=== PATIENT | female | born 1940 | race Caucasian/White ===

== ENCOUNTER 2020-09-09 19:52 | IRF | payer MEDICARE, MEDICAID, SELFPAY ==
--- NOTE | ~2020-09-09 | CT_ITS ---
EXAMINATION: CT brain wo con EXAM DATE: 09/20/2020 14:53 INDICATION: altered energy level, increase anxiety. TECHNIQUE: Spiral CT of the head was performed without contrast. Axial, coronal and sagittal images were reviewed. The dose-length product (DLP) for this examination was 681.00 mGy-cm. The exposure w as tailored according to patient size, and iterative reconstruction (ASIR) was used as additional dos e reduction technique. There is no prior study for comparison. FINDINGS: There is no acute intraparenchymal hemorrhage. No evidence of intraparenchymal brain mass lesion. No evidence of acute infarction. Please note that initial head CT has limited sensitivity f or small or acute infarctions. There is moderate periventricular and subcortical hypodensity, nonspec ific but probably related to small vessel ischemic disease. There is mild prominence of the sulci a nd ventricles related to cerebral atrophy. There is intracranial carotid arteriosclerosis. There a re no extra-axial collections. There is no mass effect or midline shift. Patient has had bilateral ocular lens surgery. Soft tissue is unremarkable. The visualized sinuses and mastoid air cells are well aerated. IMPRESSION: 1. No acute intracranial findings. 2. Chronic age related findings. Reviewed, dictated and finalized at location A. ING MACHINE OPERATOR
--- NOTE | 2020-09-09 20:55 | ADMGEN ---
This patient, Linda Palmer, was admitted to [facility] Room 221-02 at 1952. Patient/family oriented to hospital policies and general routines including ID bracelet, bed and alarms, visiting hours, pain management, procedures, bathroom and other care routines, personal items, smoking policy, room service/diet, and visiting hours. Information on how to activate the Rapid Response Team has been discussed. Patient/Family are encouraged to report perceived risks to care and to ask questions if they do not understand what they are told or what they should do.
[2020-09-09 21:29] VITALS: BMI 33.6
[2020-09-09 22:00] VITALS: BP 149/63; PULSE 70; RESP 20; TEMP 36.1; O2SAT 96
[2020-09-09] MEDS: rOPINIRole HCL 1 MG TABLET 5 MG PO (23:31)
[2020-09-09] MEDS: METOPROLOL TARTRATE 12.5 MG TABLET PO (23:31)
[2020-09-09] MEDS: hydrALAZINE HCL 50 MG TABLET PO (23:31)
[2020-09-10] MEDS: ALPRAZolam (*CRX) 0.25 MG TABLET PO ×2 (04:25→19:50)
[2020-09-10] MEDS: LEVOTHYROXINE SODIUM 100 MCG TABLET PO (05:32)
[2020-09-10 05:33] LABS: Anion Gap 9 mmol/L (8-16); Blood Urea Nitrogen 32 mg/dL (7-17); Calcium 8.8 mg/dL (8.4-10.2); Carbon Dioxide 26 mmol/L (22-30); Chloride 103 mmol/L (98-107); Cholesterol 197 mg/dL (0-200); Estimated CRCL calculation 43 ml/min; Estimated Glomerular Filt Rate 48; Glucose 134 mg/dL (65-105); HDL Direct 28 mg/dL; Potassium 4.3 mmol/L (3.4-5.0); Sodium 138 mmol/L (137-145); Triglycerides 222 mg/dL (<150)
[2020-09-10 05:44] LABS: LDL Cholesterol Direct 132 mg/dL
[2020-09-10 06:00] VITALS: BP 124/75; PULSE 73; RESP 20; TEMP 36.1; O2SAT 95
[2020-09-10 07:39] LABS: Basophils Absolute Auto 0.1 K/mm3 (0.0-0.1); Basophils Percent Auto 0.7 % (0.2-1.2); Eosinophils Absolute Auto 0.6 K/mm3 (0-0.3); Eosinophils Percent Auto 7.6 % (0-4.4); Hematocrit 36.9 % (37.0-47.0); Hemoglobin 11.9 g/dL (12.0-15.0); Immature Granulocyte Absolute 0.05 K/mm3 (0.00-0.031); Immature Granulocyte Percent A 0.7 % (0-0.5); Immature Platelet Fraction Pct 3.9 % (0.9-11.2); Lymphocytes Absolute Auto 1.54 K/mm3 (0.9-3.2); Lymphocytes Percent Auto 20.5 % (18.3-44.2); Mean Corpuscular HGB Conc 32.2 g/dl (32-36); Mean Corpuscular Hemoglobin 30.8 pg (26-34); Mean Corpuscular Volume 95.6 fl (80-100); Mean Platelet Volume 10.7 fl (7.4-10.4); Monocytes Absolute Auto 0.6 K/mm3 (0.1-0.6); Monocytes Percent Auto 7.5 % (2.6-8.5); Neutrophils Absolute Auto 4.7 K/mm3 (1.3-6.7); Platelet Count Result 200 k/mm3 (150-375); Red Blood Count 3.86 M/mm3 (4.2-5.4); Red Cell Distribution Width 12.9 % (11.5-14.5); White Blood Count 7.5 K/mm3 (4.5-10.0)
[2020-09-10 07:50] LABS: Large Platelets Present; Platelet Estimate Adequate (Adequate)
[2020-09-10] MEDS: hydrALAZINE HCL 50 MG TABLET PO ×2 (09:18→19:47)
[2020-09-10] MEDS: FUROSEMIDE 40 MG TABLET PO (09:18)
[2020-09-10] MEDS: ASPIRIN 81 MG ENTERIC TABLET PO (09:18)
[2020-09-10 09:22] VITALS: PULSE 73
[2020-09-10] MEDS: METOPROLOL TARTRATE 12.5 MG TABLET PO ×2 (09:22→19:47)
[2020-09-10] MEDS: traMADol HCL (*CRX) 50 MG TABLET PO (10:36)
--- NOTE | 2020-09-10 12:25 | WPDREHABHP ---
H&P: HPI History of Present Illness Date/Time: 09/10/20 12:25 Chief complaint: CVA Narrative: Linda Palmer is a 80 year old female The patient's primary rehab impairment category is [] stroke The etiologic diagnosis is [] acute to subacute infarcts in the left frontal parietal occipital lobes and basal ganglia I saw this patient [id number] on [] September 10, 2020 at 12 noon The patient is a [] 80 years old female with a past medical history of chronic anemia, hypertension, hypothyroidism, multiple sclerosis, and a CVA with transferred to [facility] from [facility] for further workup of a possible stroke. The patient reports that she was in her normal state of health the night before, however when she awoke at 6:00 a.m., she was unable to get out of bed due to new weakness of her right side. The patient was transferred to the emergency department. NIH stroke score was 9. A head CT scan did not show any acute process. Head CTA showed stenosis of the M1 segment of the left middle cerebral artery. The patient did not receive tPA as she was outside the window for treatment. Neurology was consulted the patient was started on aspirin 81 mg daily and Plavix 75 mg daily. The patient is intolerant of statins. LDL is 80. A1c 6.0. Patient to maintain permissive hypertension for 24 hours, with plan to slowly resume hypertensive medication. MRI of the brain revealed multiple border zone acute to subacute infarcts in the left frontal parietal, occipital lobes and basal ganglia suggestive of small vessel disease. TTE identified no embolic source. The carotid Doppler showed moderate stenosis on the left ICA. A CTA was performed on September 08, 2020 and showed areas of hypoattenuation in the left cerebral cortex and left centrum semi ovale consistent with evolving infarction seen on prior MRI examination, with no hemorrhagic conversion identified or significant mass effect, luminal irregularity and moderate narrowing of the proximal left internal carotid artery immediately distal to the bifurcation with up to 60% focal stenosis and mild irregularity and mild narrowing of the proximal left middle cerebral artery was noted. These findings are likely related to atherosclerosis given mild atherosclerosis present at the right carotid bifurcation and in the common carotid arteries as well as at the aortic arch and proximal left subclavian artery. No large vessel vascular occlusion or aneurysm identified. Patient also found with swallowing deficits and she was placed on a mechanical soft diet with thin liquids for dysphagia. S LP completed a repeat swallowing and the patient was advanced to regular diet with thin liquids. The patient experiencing physical deficits of right-sided facial droop, his speech disturbance, right hemiparesis, mild anomic aphasia and mild cognitive defects. She is awake alert oriented x3 she will discharged to the on aspirin 81 mg routine and Lovenox 40 mg with plan to reassess at followup with surgeon after rehab. the patient has not traveled outside the [place] or head contact with someone who is ill that his travel outside the [place] in the past 21 days. The patient has not traveled to an area of the [place] that he is experiencing known transmission of the Coronavirus and has not had close personal contact with anyone that has. The patient does not have a fever the patient is not experiencing lower respiratory illness symptoms. Therapy was initiated at the acute care facility and the patient transferred to us from [[facility] on [] FALLS OR SURGERIES: The patient has had no major surgery in the last 100 days. The patient has had 2 to 3 falls in the past year. The patient has had no falls with injury in the past year. PAST MEDICAL HISTORY: Chronic anemia, hypertension, hypothyroidism, multiple sclerosis diagnosed in 1989 and also last follow-up with [facility] in 2017, CVA
[2020-09-10 12:31] VITALS: BMI 33.6
[2020-09-10] MEDS: LOSARTAN POTASSIUM 50 MG TABLET PO (12:33)
[2020-09-10 14:00] VITALS: BP 149/55; PULSE 64; RESP 18; TEMP 36.4; O2SAT 96
--- NOTE | 2020-09-10 16:30 | RPD ---
INDIVIDUALIZED PLAN OF CARE FOR Linda Palmer Brief Synthesis of Pre-Admission Screen, Post-Admission Evaluation and Therapy Evaluations: The patient presents to rehab with acute to subacute infarcts in the left frontal parietal, occipital lobes, and basal ganglia. Comorbidities include Chronic anemia, hypertension, hypothyroidism, multiple sclerosis, history of CVA x2 in 2018, COPD, CAD, GERD, neuropathy, restless leg syndrome, right-side ptosis, right-sided facial droop, speech disturbance, righthemiparesis, insomnia, and mild oral/pharyngeal dysphagia, obesity, anxiety, mild anomic aphasia. . The patient needs physician monitoring and treatment of hypertenison/hypotension, anemia, respiratory deficits, monitoring for adverse reactions to new medications, monitoring for infection, and pain control. The patient requires nursing services for frequent neuro checks, anticoagulation therapy, medication management and education, pressure relief and skin care management, monitoring of labs, bowel and bladder training, and fall/safety precautions. Deficits include:ADLs, Balance, Cognition, Endurance, Family Training/Education, Mobility, Pain Management, ROM, Safety, Speech, Strength, Swallowing, Transfers Journeyman Pipe Welder/Case Management for: Discharge Planning and Patient/Family Counseling Physical Therapy: 5 days per week for 90 minutes. Treatments may include: Therapeutic Exercise, Gait Training, Neuromuscular Re-education, Transfer Training, Community Reintegration, Bed Mobility, Patient/Family Education, Wheelchair Mobility Group Therapy/Concurrent Therapy Rationales: -Improve attention span during functional activities in a distracted environment. -Enhance problem solving and/or adequate judgment skills during functional activities in a distracted environment. -Promote increased safety awareness in a distracted environment to reduce fall risk with functional tasks, transfers, and ambulation to allow a more safe, self-sufficient return to the home environment. -Improve dynamic balance skills to promote safety and independence with functional activities in a distracted environment for maximum gain. Occupational Therapy: 5 days per week for 90 minutes. Treatments may include: Therapeutic Exercise, Therapeutic Activity, Cognitive Training, Self-Care Transfer Training, Community Reintegration, Home Management, Patient/Family Education, Wheelchair Mobility Training, Energy Conservation Training Group Therapy/Concurrent Therapy Rationales: -Allow therapist to observe and teach generalization and carry-over of skills learned in individual therapy. -Enhance problem solving and sequencing skills during therapeutic activities in a distracted environment. -Promote increased safety awareness in a realistic setting to reduce fall risk with functional tasks due to visual and verbal distractions. -Increase functional level with ADLs, ADL transfers and use of adaptive equipment through therapeutic activities with others while promoting safety to allow a more safe, self-sufficient return home. Medical Prognosis: Good Anticipated Length of Stay: 12 days Rehab Goals: Eating Goal: 06-Independent Oral Hygiene Goal: 06-Independent Toileting Hygiene Goal: 04-Supervision or Touching Assistance Shower/Bathe Self Goal: 05-Setup or Clean Up Assistance Upper Body Dressing Goal: 05-Setup or Clean Up Assistance Lower Body Dressing Goal: 05-Setup or Clean Up Assistance Putting On/Taking Off Footwear Goal: 05-Setup or Clean Up Assistance Rolling Left and Right Goal: 06-Independent Sit to Lying Goal: 06-Independent Lying to Sitting on Side of Bed Goal: 06-Independent Sit to Stand Goal: 04-Supervision or Touching Assistance Chair/Zzf-xv-Gvoma Transfer Goal: 04-Supervision or Touching Assistance Toilet Transfer Goal: 04-Supervision or Touching Assistance Car Transfer Goal: 04-Supervision or Touching Assistance Walk 10' Goal: 04-Supervision or Touching Assistance Walk 50' with Two T
[2020-09-10] MEDS: rOPINIRole HCL 1 MG TABLET 5 MG PO (19:47)
[2020-09-10 21:02] VITALS: BP 148/47; PULSE 82; RESP 18; TEMP 36.5; O2SAT 95
[2020-09-11] MEDS: traMADol HCL (*CRX) 50 MG TABLET PO (02:37)
[2020-09-11 05:11] VITALS: BP 157/60; PULSE 68; RESP 20; TEMP 36.4; O2SAT 93
[2020-09-11] MEDS: LEVOTHYROXINE SODIUM 100 MCG TABLET PO (05:52)
[2020-09-11 08:35] VITALS: PULSE 68
[2020-09-11] MEDS: LOSARTAN POTASSIUM 50 MG TABLET PO (08:35)
[2020-09-11] MEDS: FUROSEMIDE 40 MG TABLET PO (08:35)
[2020-09-11] MEDS: hydrALAZINE HCL 50 MG TABLET PO ×2 (08:35→20:42)
[2020-09-11] MEDS: METOPROLOL TARTRATE 12.5 MG TABLET PO ×2 (08:35→20:42)
[2020-09-11] MEDS: ASPIRIN 81 MG ENTERIC TABLET PO (08:35)
[2020-09-11] MEDS: ALPRAZolam (*CRX) 0.25 MG TABLET PO ×2 (08:39→20:41)
--- NOTE | 2020-09-11 12:40 | WPDNEURORHBP ---
Subjective Date/time seen: 09/11/20 12:40 80 years old lady admitted to the rehab floor with stroke involving the left frontal parietal and occipital lobes along with the basal ganglia in addition to the documented stenosis of M1 segment of left middle cerebral artery and also history of no tPA unfortunately has multiple comorbid conditions particularly hypertension ongoing demyelinating disease COPD coronary artery disease blurred also concerned about the cardiac monitoring which was discussed by her other physician prior to coming to the rehab Review of Systems Review of Systems: All systems reviewed & are unremarkable except as noted in HPI and below Functional Status Ambulation Ability Ability to Ambulate 10 Feet: Minimum Assistance X 1 Ambulation Assistive Devices: Walker, Wheeled Exam Narrative: Exam Narrative: on examination she is awake alert definitely feeling better his speech is not dysphasic not dysarthric not dysphonic more cooperative and understanding ear nose throat examination is normal neck is supple with no restriction of the motions no cervical bruit heart regular lungs clear abdomen soft flabby be neuro unchanged Objective Data Vital Signs Vital Signs: Vital Signs - 24 hr 09/10/20 14:00 09/10/20 21:02 09/11/20 05:11 Temperature 36.4 C 36.5 C 36.4 C L Pulse Rate 64 82 68 Respiratory Rate 18 18 20 Blood Pressure 149/55 H 148/47 H 157/60 H Pulse Oximetry 96 95 93 09/11/20 08:35 Temperature Pulse Rate 68 Respiratory Rate Blood Pressure Pulse Oximetry Intake/Output Intake/Output: Intake & Output 09/08/20 09/09/20 09/10/20 09/11/20 23:59 23:59 23:59 23:59 Intake Total 1080 360 Balance 1080 360 Meds/Results Medications: Active Medications Generic Name Dose Route Start Last Admin Trade Name Freq PRN Reason Stop Dose Admin Alprazolam 0.25 mg 09/10/20 03:11 09/11/20 08:39 Alprazolam (*Crx) 0.25 Mg Tablet PO 0.25 mg BID PRN Administration Anxiety Aspirin 81 mg 09/10/20 09:00 09/11/20 08:35 Aspirin 81 Mg Enteric Tablet PO 81 mg DAILY CIARA Administration Furosemide 40 mg 09/10/20 09:00 09/11/20 08:35 Furosemide 40 Mg Tablet PO 40 mg DAILY CIARA Administration Hydralazine HCl 50 mg 09/09/20 21:00 09/11/20 08:35 Hydralazine Hcl 50 Mg Tablet PO 50 mg Q12HR CIARA Administration Levothyroxine Sodium 100 mcg 09/10/20 06:30 09/11/20 05:52 Levothyroxine Sodium 100 Mcg Tablet PO 100 mcg DAILY@0630 CIARA Administration Losartan Potassium 50 mg 09/10/20 09:00 09/11/20 08:35 Losartan Potassium 50 Mg Tablet PO 50 mg DAILY CIARA Administration Metoprolol Tartrate 12.5 mg 09/09/20 21:40 09/11/20 08:35 Metoprolol Tartrate 12.5 Mg Tablet PO 12.5 mg Q12HR CIARA Administration Ropinirole HCl 5 mg 09/09/20 21:45 09/10/20 19:47 Ropinirole Hcl 1 Mg Tablet PO 5 mg HS CIARA Administration Tramadol HCl 50 mg 09/10/20 09:31 09/11/20 02:37 Tramadol Hcl (*Crx) 50 Mg Tablet PO 50 mg Q8H PRN Administration Pain Rated 4-6 Progress Note: A&P Assessment and Plan (1) GERD (gastroesophageal reflux disease): Code(s): K21.9 - Gastro-esophageal reflux disease without esophagitis Status: Acute (2) COPD (chronic obstructive pulmonary disease): Code(s): J44.9 - Chronic obstructive pulmonary disease, unspecified Status: Acute (3) Restless leg syndrome: Code(s): G25.81 - Restless legs syndrome Status: Acute (4) Neuropathy: Code(s): G62.9 - Polyneuropathy, unspecified Status: Acute (5) Multiple sclerosis: Code(s): G35 - Multiple sclerosis Status: Acute (6) Hypothyroidism: Code(s): E03.9 - Hypothyroidism, unspecified Status: Acute (7) Hypertension: Code(s): I10 - Essential (primary) hypertension Status: Acute (8) MS (multiple sclerosis): Code(s): G35 - Multiple sclerosis Status: Acute (9) Stroke:
[2020-09-11 14:00] VITALS: BP 152/67; PULSE 78; RESP 18; TEMP 36.6; O2SAT 96
[2020-09-11] MEDS: rOPINIRole HCL 1 MG TABLET 5 MG PO (20:41)
[2020-09-11] MEDS: SENNA/DOCUSATE SODIUM TABLET 2 TAB PO (20:41)
[2020-09-11 22:00] VITALS: BP 147/74; PULSE 71; RESP 20; TEMP 36.4; O2SAT 99
[2020-09-12] MEDS: traMADol HCL (*CRX) 50 MG TABLET PO ×2 (01:30→21:59)
[2020-09-12] MEDS: LEVOTHYROXINE SODIUM 100 MCG TABLET PO (05:58)
[2020-09-12 06:00] VITALS: BP 122/63; PULSE 68; RESP 20; TEMP 36.5; O2SAT 94
[2020-09-12 08:21] VITALS: PULSE 68
[2020-09-12] MEDS: hydrALAZINE HCL 50 MG TABLET PO ×2 (08:21→20:02)
[2020-09-12] MEDS: LOSARTAN POTASSIUM 50 MG TABLET PO (08:21)
[2020-09-12] MEDS: FUROSEMIDE 40 MG TABLET PO (08:21)
[2020-09-12] MEDS: METOPROLOL TARTRATE 12.5 MG TABLET PO ×2 (08:21→20:01)
[2020-09-12] MEDS: ASPIRIN 81 MG ENTERIC TABLET PO (08:21)
[2020-09-12] MEDS: ALPRAZolam (*CRX) 0.25 MG TABLET PO ×2 (08:21→21:59)
[2020-09-12 14:00] VITALS: BP 130/54; PULSE 78; RESP 20; TEMP 36.9; O2SAT 94
[2020-09-12 20:00] VITALS: PULSE 70; RESP 20; O2SAT 96
[2020-09-12] MEDS: rOPINIRole HCL 1 MG TABLET 5 MG PO (20:00)
[2020-09-12 20:01] VITALS: PULSE 70
[2020-09-12] MEDS: SENNA/DOCUSATE SODIUM TABLET 2 TAB PO (20:02)
[2020-09-12 21:36] VITALS: BP 151/63; PULSE 70; RESP 20; TEMP 36.6; O2SAT 96
[2020-09-13] MEDS: LEVOTHYROXINE SODIUM 100 MCG TABLET PO (05:53)
[2020-09-13 06:00] VITALS: BP 166/61; PULSE 75; RESP 20; TEMP 36.2; O2SAT 95
[2020-09-13 07:55] VITALS: PULSE 72
[2020-09-13] MEDS: hydrALAZINE HCL 50 MG TABLET PO ×2 (07:55→20:11)
[2020-09-13] MEDS: LOSARTAN POTASSIUM 50 MG TABLET PO (07:55)
[2020-09-13] MEDS: polyethylene glycoL 3350 17 GM POWD.PACK PO (07:55)
[2020-09-13] MEDS: ASPIRIN 81 MG ENTERIC TABLET PO (07:55)
[2020-09-13] MEDS: METOPROLOL TARTRATE 12.5 MG TABLET PO ×2 (07:55→20:11)
[2020-09-13] MEDS: FUROSEMIDE 40 MG TABLET PO (07:55)
[2020-09-13] MEDS: ALPRAZolam (*CRX) 0.25 MG TABLET PO ×2 (08:30→20:19)
--- NOTE | 2020-09-13 10:57 | WPDNEUROPN ---
Progress Note: A&P Assessment and Plan (1) GERD (gastroesophageal reflux disease): Code(s): K21.9 - Gastro-esophageal reflux disease without esophagitis Status: Acute (2) COPD (chronic obstructive pulmonary disease): Code(s): J44.9 - Chronic obstructive pulmonary disease, unspecified Status: Acute (3) Restless leg syndrome: Code(s): G25.81 - Restless legs syndrome Status: Acute (4) Neuropathy: Code(s): G62.9 - Polyneuropathy, unspecified Status: Acute (5) Multiple sclerosis: Code(s): G35 - Multiple sclerosis Status: Acute (6) Hypothyroidism: Code(s): E03.9 - Hypothyroidism, unspecified Status: Acute (7) Hypertension: Code(s): I10 - Essential (primary) hypertension Status: Acute (8) MS (multiple sclerosis): Code(s): G35 - Multiple sclerosis Status: Acute (9) Stroke: Code(s): I63.9 - Cerebral infarction, unspecified Status: Acute Additional Plan stable Review of Systems Review of Systems: All systems reviewed & are unremarkable except as noted in HPI and below Exam Narrative: Exam Narrative: on examination she is awake alert cooperative in no obvious acute distress his speech nor dysphasic no dysarthria not dysphonic heart regular lungs clear abdomen is soft neuro unchanged Objective Data Vital Signs Vital Signs: Vital Signs - 24 hr 09/12/20 14:00 09/12/20 20:00 09/12/20 20:01 Temperature 36.9 C Pulse Rate 78 70 70 Respiratory Rate 20 20 Blood Pressure 130/54 L Pulse Oximetry 94 96 09/12/20 21:36 09/13/20 06:00 09/13/20 07:55 Temperature 36.6 C 36.2 C L Pulse Rate 70 75 72 Respiratory Rate 20 20 Blood Pressure 151/63 H 166/61 H Pulse Oximetry 96 95 Intake/Output Intake/Output: Intake & Output 09/10/20 09/11/20 09/12/20 09/13/20 23:59 23:59 23:59 23:59 Intake Total 1080 840 960 240 Balance 1080 840 960 240 Meds/Results Medications: Active Medications Generic Name Dose Route Start Last Admin Trade Name Freq PRN Reason Stop Dose Admin Alprazolam 0.25 mg 09/10/20 03:11 09/13/20 08:30 Alprazolam (*Crx) 0.25 Mg Tablet PO 0.25 mg BID PRN Administration Anxiety Aspirin 81 mg 09/10/20 09:00 09/13/20 07:55 Aspirin 81 Mg Enteric Tablet PO 81 mg DAILY CIARA Administration Furosemide 40 mg 09/10/20 09:00 09/13/20 07:55 Furosemide 40 Mg Tablet PO 40 mg DAILY CIARA Administration Hydralazine HCl 50 mg 09/09/20 21:00 09/13/20 07:55 Hydralazine Hcl 50 Mg Tablet PO 50 mg Q12HR CIARA Administration Levothyroxine Sodium 100 mcg 09/10/20 06:30 09/13/20 05:53 Levothyroxine Sodium 100 Mcg Tablet PO 100 mcg DAILY@0630 CIARA Administration Losartan Potassium 50 mg 09/10/20 09:00 09/13/20 07:55 Losartan Potassium 50 Mg Tablet PO 50 mg DAILY CIARA Administration Metoprolol Tartrate 12.5 mg 09/09/20 21:40 09/13/20 07:55 Metoprolol Tartrate 12.5 Mg Tablet PO 12.5 mg Q12HR CIARA Administration Polyethylene Glycol 17 gm 09/13/20 09:00 09/13/20 07:55 Polyethylene Glycol 3350 17 Gm Powd.Pack PO 17 gm QAM CIARA Administration Ropinirole HCl 5 mg 09/09/20 21:45 09/12/20 20:00 Ropinirole Hcl 1 Mg Tablet PO 5 mg HS CIARA Administration Senna/Docusate Sodium 2 tab 09/11/20 21:00 09/12/20 20:02 Senna/Docusate Sodium Tablet PO 2 tab HS CIARA Administration Tramadol HCl 50 mg 09/10/20 09:31 09/12/20 21:59 Tramadol Hcl (*Crx) 50 Mg Tablet PO 50 mg Q8H PRN Administration Pain Rated 4-6
[2020-09-13 14:00] VITALS: BP 121/78; PULSE 70; RESP 20; TEMP 36.2; O2SAT 94
--- NOTE | 2020-09-13 15:18 | PCPTNOTE ---
Linda Palmer was evaluated for a wheeled walker on 09/13/2020 by this physical therapist physiotherapy assistant. The wheeled walker will resolve patient's mobility limitations and will be used for ADL's within the home. The patient can safely use the wheeled walker. ?The wheeled walker will resolve the patient?s mobility deficits, including decreased endurance, decreased strength and impaired balance.
[2020-09-13 20:08] VITALS: BP 158/63; PULSE 72; RESP 18; TEMP 36.3; O2SAT 95
[2020-09-13] MEDS: rOPINIRole HCL 1 MG TABLET 5 MG PO (20:10)
[2020-09-13 20:11] VITALS: PULSE 74
[2020-09-13] MEDS: SENNA/DOCUSATE SODIUM TABLET 2 TAB PO (20:11)
[2020-09-13] MEDS: traMADol HCL (*CRX) 50 MG TABLET PO (20:19)
[2020-09-13 21:00] VITALS: PULSE 74; RESP 18; O2SAT 95
[2020-09-14 05:23] VITALS: BP 137/55; PULSE 70; RESP 18; TEMP 36.6; O2SAT 97
[2020-09-14] MEDS: LEVOTHYROXINE SODIUM 100 MCG TABLET PO (05:27)
[2020-09-14 08:14] VITALS: PULSE 74
[2020-09-14] MEDS: ALPRAZolam (*CRX) 0.25 MG TABLET PO ×2 (08:14→22:06)
[2020-09-14] MEDS: METOPROLOL TARTRATE 12.5 MG TABLET PO ×2 (08:14→19:55)
[2020-09-14] MEDS: ASPIRIN 81 MG ENTERIC TABLET PO (08:14)
[2020-09-14] MEDS: BISACODYL 5 MG TABLET EC 10 MG PO ×2 (08:15→20:02)
[2020-09-14] MEDS: LOSARTAN POTASSIUM 50 MG TABLET PO (08:15)
[2020-09-14] MEDS: FUROSEMIDE 40 MG TABLET PO (08:15)
[2020-09-14] MEDS: hydrALAZINE HCL 50 MG TABLET PO ×2 (08:15→19:55)
[2020-09-14] MEDS: polyethylene glycoL 3350 17 GM POWD.PACK PO (08:15)
--- NOTE | 2020-09-14 11:04 | PCNFU ---
Nutrition Follow-Up Complete: Obesity related to excessive energy intake prior to admission as evidenced by BMI of 33.7. Goal: Patient to consume 75% of meals or greater. Progressing towards goal. We will continue current goal. Pt current nutrition is Heart Healthy. Nutrition recommendation:Agree Last recorded weight is 100.4 kg. Bowel Motility:+BM reported 09/09-constipation is noted. Labs Reviewed:no new labs to report. Meds Noted:Miralax,Lopressor,Lasix,Synthroid,Xanax Additional Notes: Nutrition follow up today. Patient is consuming 50-75% of a heart healthy diet. No diet concerns at this time. Monitoring: Follow up every 5 days.
[2020-09-14 14:00] VITALS: BP 141/43; PULSE 72; RESP 20; TEMP 36.4; O2SAT 96
--- NOTE | 2020-09-14 14:42 | PC.NURSE ---
Call returned from Dennise Lr at [facility] regarding patient and questions about documentation from their hospital stating patient was to be started on plavix there as well as questions regarding the patient needing a holter monitor.Dennise stated she had the charge nurse look up information and patient was not discharged to our unit with Plavix and patient did not discharge from there on plavix. md updated and will continue to monitor.
[2020-09-14] MEDS: SENNA/DOCUSATE SODIUM TABLET 2 TAB PO (19:54)
[2020-09-14 19:55] VITALS: PULSE 80
[2020-09-14] MEDS: rOPINIRole HCL 1 MG TABLET 5 MG PO (19:56)
[2020-09-14] MEDS: traMADol HCL (*CRX) 50 MG TABLET PO (20:03)
[2020-09-14 20:28] VITALS: BP 138/50; PULSE 84; RESP 18; TEMP 36.4; O2SAT 98
[2020-09-15 05:20] VITALS: BP 145/49; PULSE 73; RESP 18; TEMP 36.3; O2SAT 96
[2020-09-15] MEDS: LEVOTHYROXINE SODIUM 100 MCG TABLET PO (05:25)
[2020-09-15 09:04] VITALS: PULSE 73
[2020-09-15] MEDS: ASPIRIN 81 MG ENTERIC TABLET PO (09:04)
[2020-09-15] MEDS: LOSARTAN POTASSIUM 50 MG TABLET PO (09:04)
[2020-09-15] MEDS: METOPROLOL TARTRATE 12.5 MG TABLET PO ×2 (09:04→20:26)
[2020-09-15] MEDS: hydrALAZINE HCL 50 MG TABLET PO ×2 (09:04→20:26)
[2020-09-15] MEDS: FUROSEMIDE 40 MG TABLET PO (09:04)
[2020-09-15] MEDS: polyethylene glycoL 3350 17 GM POWD.PACK PO (09:05)
[2020-09-15 09:30] VITALS: BP 133/55; PULSE 78; RESP 97
--- NOTE | 2020-09-15 10:43 | WPDNEURORHBP ---
Subjective Date/time seen: 09/15/20 10:43 80 years old lady has been admitted to the rehab floor with the diagnosis of a stroke involving the left frontoparietal area and occipital area in addition to the basal ganglia and also documentation of this stenosis of M1 segment of left middle cerebral artery. Additional she carries the diagnosis of hypertension and demyelinating disease along with COPD coronary artery disease. Review of Systems Review of Systems: All systems reviewed & are unremarkable except as noted in HPI and below Functional Status Ambulation Ability Ability to Ambulate 10 Feet: Contact Guard Ability to Ambulate 50 Feet With 2 Turns: Contact Guard Ambulation Assistive Devices: Walker, Wheeled Transfers Ability Ability to Transfer In/Out of Chair: Contact Guard Exam Narrative: Exam Narrative: On examination she is awake alert cooperative in no obvious acute distress his speech nor dysphasic no dysarthric not dysphonic. Heart regular with no murmur. Lungs clear to auscultation with no rhonchi or crepitations. Abdomen soft flat be nontender normal bowel sounds. Neuro examination is reveals improving right-sided deficit. Objective Data Vital Signs Vital Signs: Vital Signs - 24 hr 09/14/20 14:00 09/14/20 19:55 09/14/20 20:28 Temperature 36.4 C 36.4 C L Pulse Rate 72 80 84 Respiratory Rate 20 18 Blood Pressure 141/43 H 138/50 L Pulse Oximetry 96 98 09/15/20 05:20 09/15/20 09:04 Temperature 36.3 C L Pulse Rate 73 73 Respiratory Rate 18 Blood Pressure 145/49 H Pulse Oximetry 96 Intake/Output Intake/Output: Intake & Output 09/12/20 09/13/20 09/14/20 09/15/20 23:59 23:59 23:59 23:59 Intake Total 960 840 960 240 Balance 960 840 960 240 Meds/Results Medications: Active Medications Generic Name Dose Route Start Last Admin Trade Name Freq PRN Reason Stop Dose Admin Alprazolam 0.25 mg 09/10/20 03:11 09/14/20 22:06 Alprazolam (*Crx) 0.25 Mg Tablet PO 0.25 mg BID PRN Administration Anxiety Aspirin 81 mg 09/10/20 09:00 09/15/20 09:04 Aspirin 81 Mg Enteric Tablet PO 81 mg DAILY CIARA Administration Bisacodyl 10 mg 09/13/20 17:58 09/14/20 20:02 Bisacodyl 5 Mg Tablet Ec PO 10 mg HS PRN Administration Constipation Furosemide 40 mg 09/10/20 09:00 09/15/20 09:04 Furosemide 40 Mg Tablet PO 40 mg DAILY CIARA Administration Hydralazine HCl 50 mg 09/09/20 21:00 09/15/20 09:04 Hydralazine Hcl 50 Mg Tablet PO 50 mg Q12HR CIARA Administration Levothyroxine Sodium 100 mcg 09/10/20 06:30 09/15/20 05:25 Levothyroxine Sodium 100 Mcg Tablet PO 100 mcg DAILY@0630 CIARA Administration Losartan Potassium 50 mg 09/10/20 09:00 09/15/20 09:04 Losartan Potassium 50 Mg Tablet PO 50 mg DAILY CIARA Administration Metoprolol Tartrate 12.5 mg 09/09/20 21:40 09/15/20 09:04 Metoprolol Tartrate 12.5 Mg Tablet PO 12.5 mg Q12HR CIARA Administration Polyethylene Glycol 17 gm 09/13/20 09:00 09/15/20 09:05 Polyethylene Glycol 3350 17 Gm Powd.Pack PO 17 gm QAM CIARA Administration Ropinirole HCl 5 mg 09/09/20 21:45 09/14/20 19:56 Ropinirole Hcl 1 Mg Tablet PO 5 mg HS CIARA Administration Senna/Docusate Sodium 2 tab 09/11/20 21:00 09/14/20 19:54 Senna/Docusate Sodium Tablet PO 2 tab HS CIARA Administration Tramadol HCl 50 mg 09/10/20 09:31 09/14/20 20:03 Tramadol Hcl (*Crx) 50 Mg Tablet PO 50 mg Q8H PRN Administration Pain Rated 4-6 Progress Note: A&P Assessment and Plan (1) COPD (chronic obstructive pulmonary disease): Code(s): J44.9 - Chronic obstructive pulmonary disease, unspecified Status: Acute (2) GERD (gastroesophageal reflux disease): Code(s): K21.9 - Gastro-esophageal reflux disease without esophagitis Status: Acute (3) Restless leg syndrome: Code(s): G25.81 - Restless legs syndrome Status: Acute (4) Neuropathy: Code(
[2020-09-15] MEDS: ALPRAZolam (*CRX) 0.25 MG TABLET PO ×2 (11:19→20:26)
[2020-09-15 14:00] VITALS: BP 140/47; PULSE 80; RESP 18; TEMP 37; O2SAT 97
[2020-09-15 20:26] VITALS: PULSE 80
[2020-09-15] MEDS: rOPINIRole HCL 1 MG TABLET 5 MG PO (20:26)
[2020-09-15] MEDS: SENNA/DOCUSATE SODIUM TABLET 2 TAB PO (20:26)
[2020-09-15] MEDS: BISACODYL 5 MG TABLET EC 10 MG PO (21:31)
[2020-09-15 22:00] VITALS: BP 151/61; PULSE 80; RESP 18; TEMP 36.6; O2SAT 98
[2020-09-16] MEDS: traMADol HCL (*CRX) 50 MG TABLET PO ×3 (02:41→21:59)
[2020-09-16 06:00] VITALS: BP 169/82; PULSE 75; RESP 18; TEMP 36; O2SAT 98
[2020-09-16] MEDS: LEVOTHYROXINE SODIUM 100 MCG TABLET PO (06:14)
[2020-09-16 08:49] VITALS: PULSE 76
[2020-09-16] MEDS: METOPROLOL TARTRATE 12.5 MG TABLET PO ×2 (08:49→21:56)
[2020-09-16] MEDS: LOSARTAN POTASSIUM 50 MG TABLET PO (08:49)
[2020-09-16] MEDS: FUROSEMIDE 40 MG TABLET PO (08:49)
[2020-09-16] MEDS: hydrALAZINE HCL 50 MG TABLET PO ×2 (08:49→21:56)
[2020-09-16] MEDS: CLOPIDOGREL BISULFATE 75 MG TABLET PO (08:49)
[2020-09-16] MEDS: ASPIRIN 81 MG ENTERIC TABLET PO (08:49)
[2020-09-16 08:50] VITALS: PULSE 76; RESP 18; O2SAT 98
[2020-09-16] MEDS: polyethylene glycoL 3350 17 GM POWD.PACK PO (08:50)
[2020-09-16] MEDS: ALPRAZolam (*CRX) 0.25 MG TABLET PO ×2 (09:02→23:30)
--- NOTE | 2020-09-16 11:38 | WPDNEURORHBP ---
Subjective Date/time seen: 09/16/20 11:38 80 years old admitted to the rehab floor with diagnosis of stroke in addition to the ongoing history of demyelinating disease she has been involved the physical therapy and occupational therapy has been significantly improving Review of Systems Review of Systems: All systems reviewed & are unremarkable except as noted in HPI and below Functional Status Ambulation Ability Ability to Ambulate 10 Feet: Standby Assistance Ability to Ambulate 50 Feet With 2 Turns: Standby Assistance Ambulation Assistive Devices: Walker, Wheeled Transfers Ability Ability to Transfer In/Out of Chair: Contact Guard Exam Narrative: Exam Narrative: on examination she is awake alert cooperative in no obvious acute distress speech nor dysphasic no dysarthric heart regular with no murmur lungs clear with no crepitations or rhonchi abdomen is soft nontender normal bowel sounds skin normal and neurological examination is improving Objective Data Vital Signs Vital Signs: Vital Signs - 24 hr 09/15/20 14:00 09/15/20 20:26 09/15/20 22:00 Temperature 37.0 C 36.6 C Pulse Rate 80 80 80 Respiratory Rate 18 18 Blood Pressure 140/47 L 151/61 H Pulse Oximetry 97 98 09/16/20 06:00 09/16/20 08:49 Temperature 36.0 C L Pulse Rate 75 76 Respiratory Rate 18 Blood Pressure 169/82 H Pulse Oximetry 98 Intake/Output Intake/Output: Intake & Output 09/13/20 09/14/20 09/15/20 09/16/20 23:59 23:59 23:59 23:59 Intake Total 840 960 960 480 Balance 840 960 960 480 Meds/Results Medications: Active Medications Generic Name Dose Route Start Last Admin Trade Name Freq PRN Reason Stop Dose Admin Alprazolam 0.25 mg 09/10/20 03:11 09/16/20 09:02 Alprazolam (*Crx) 0.25 Mg Tablet PO 0.25 mg BID PRN Administration Anxiety Aspirin 81 mg 09/10/20 09:00 09/16/20 08:49 Aspirin 81 Mg Enteric Tablet PO 81 mg DAILY CIARA Administration Bisacodyl 10 mg 09/13/20 17:58 09/15/20 21:31 Bisacodyl 5 Mg Tablet Ec PO 10 mg HS PRN Administration Constipation Clopidogrel Bisulfate 75 mg 09/16/20 09:00 09/16/20 08:49 Clopidogrel Bisulfate 75 Mg Tablet PO 75 mg QAM CIARA Administration Furosemide 40 mg 09/10/20 09:00 09/16/20 08:49 Furosemide 40 Mg Tablet PO 40 mg DAILY CIARA Administration Hydralazine HCl 50 mg 09/09/20 21:00 09/16/20 08:49 Hydralazine Hcl 50 Mg Tablet PO 50 mg Q12HR CIARA Administration Lactulose 30 gm 09/15/20 14:25 Lactulose 20 Gm/30 Ml Udc PO QAM PRN Constipation Levothyroxine Sodium 100 mcg 09/10/20 06:30 09/16/20 06:14 Levothyroxine Sodium 100 Mcg Tablet PO 100 mcg DAILY@0630 CIARA Administration Losartan Potassium 50 mg 09/10/20 09:00 09/16/20 08:49 Losartan Potassium 50 Mg Tablet PO 50 mg DAILY CIARA Administration Metoprolol Tartrate 12.5 mg 09/09/20 21:40 09/16/20 08:49 Metoprolol Tartrate 12.5 Mg Tablet PO 12.5 mg Q12HR CIARA Administration Polyethylene Glycol 17 gm 09/13/20 09:00 09/16/20 08:50 Polyethylene Glycol 3350 17 Gm Powd.Pack PO 17 gm QAM CIARA Administration Ropinirole HCl 5 mg 09/09/20 21:45 09/15/20 20:26 Ropinirole Hcl 1 Mg Tablet PO 5 mg HS CIARA Administration Senna/Docusate Sodium 2 tab 09/11/20 21:00 09/15/20 20:26 Senna/Docusate Sodium Tablet PO 2 tab HS CIARA Administration Tramadol HCl 50 mg 09/10/20 09:31 09/16/20 11:03 Tramadol Hcl (*Crx) 50 Mg Tablet PO 50 mg Q8H PRN Administration Pain Rated 4-6 Progress Note: A&P Assessment and Plan (1) COPD (chronic obstructive pulmonary disease): Code(s): J44.9 - Chronic obstructive pulmonary disease, unspecified Status: Acute (2) GERD (gastroesophageal reflux disease): Code(s): K21.9 - Gastro-esophageal reflux disease without esophagitis Status: Acute (3) Restless leg syndrome: Code(s): G25.81 - Restless legs syndrome Status:
[2020-09-16 14:00] VITALS: BP 145/72; PULSE 84; RESP 18; TEMP 36.5; O2SAT 96
[2020-09-16 21:42] VITALS: BP 157/59; PULSE 71; RESP 22; TEMP 36.9; O2SAT 95
[2020-09-16] MEDS: SENNA/DOCUSATE SODIUM TABLET 2 TAB PO (21:55)
[2020-09-16 21:56] VITALS: PULSE 95
[2020-09-16] MEDS: rOPINIRole HCL 1 MG TABLET 5 MG PO (21:57)
[2020-09-16] MEDS: BISACODYL 5 MG TABLET EC 10 MG PO (21:59)
[2020-09-17] VITALS (7 sets, daily range): BP systolic 142–152; BP diastolic 64–65; PULSE 74–80; RESP 20; TEMP 36.6–36.8; O2SAT 95–97
[2020-09-17] MEDS: LEVOTHYROXINE SODIUM 100 MCG TABLET PO (05:27)
[2020-09-17 05:38] LABS: Basophils Absolute Auto 0.1 K/mm3 (0.0-0.1); Eosinophils Absolute Auto 0.3 K/mm3 (0-0.3); Eosinophils Percent Auto 5.7 % (0-4.4); Hematocrit 30.8 % (37.0-47.0); Hemoglobin 9.6 g/dL (12.0-15.0); Immature Granulocyte Absolute 0.02 K/mm3 (0.00-0.031); Immature Granulocyte Percent A 0.3 % (0-0.5); Lymphocytes Absolute Auto 1.44 K/mm3 (0.9-3.2); Mean Corpuscular HGB Conc 31.2 g/dl (32-36); Mean Corpuscular Hemoglobin 30.2 pg (26-34); Mean Corpuscular Volume 96.9 fl (80-100); Mean Platelet Volume 9.6 fl (7.4-10.4); Monocytes Absolute Auto 0.5 K/mm3 (0.1-0.6); Monocytes Percent Auto 8.1 % (2.6-8.5); Neutrophils Absolute Auto 3.5 K/mm3 (1.3-6.7); Neutrophils Percent Auto 59.9 % (45.5-73.1); Platelet Count Result 269 k/mm3 (150-375); Red Blood Count 3.18 M/mm3 (4.2-5.4); Red Cell Distribution Width 12.7 % (11.5-14.5); White Blood Count 5.8 K/mm3 (4.5-10.0)
[2020-09-17 05:55] LABS: Anion Gap 4 mmol/L (8-16); Blood Urea Nitrogen 29 mg/dL (7-17); Calcium 8.9 mg/dL (8.4-10.2); Carbon Dioxide 33 mmol/L (22-30); Chloride 100 mmol/L (98-107); Estimated CRCL calculation 40 ml/min; Estimated Glomerular Filt Rate 43; Glucose 124 mg/dL (65-105); Potassium 4.1 mmol/L (3.4-5.0); Sodium 137 mmol/L (137-145)
[2020-09-17] MEDS: METOPROLOL TARTRATE 12.5 MG TABLET PO ×2 (08:34→21:05)
[2020-09-17] MEDS: FUROSEMIDE 40 MG TABLET PO (08:34)
[2020-09-17] MEDS: LOSARTAN POTASSIUM 50 MG TABLET PO (08:34)
[2020-09-17] MEDS: hydrALAZINE HCL 50 MG TABLET PO ×2 (08:34→20:35)
[2020-09-17] MEDS: ASPIRIN 81 MG ENTERIC TABLET PO (08:34)
[2020-09-17] MEDS: ALPRAZolam (*CRX) 0.25 MG TABLET PO ×2 (08:34→20:43)
[2020-09-17] MEDS: polyethylene glycoL 3350 17 GM POWD.PACK PO (08:35)
[2020-09-17] MEDS: CLOPIDOGREL BISULFATE 75 MG TABLET PO (08:40)
[2020-09-17] MEDS: rOPINIRole HCL 1 MG TABLET 5 MG PO (20:33)
[2020-09-17] MEDS: SENNA/DOCUSATE SODIUM TABLET 2 TAB PO (20:35)
[2020-09-17] MEDS: traMADol HCL (*CRX) 50 MG TABLET PO (20:41)
[2020-09-18] VITALS (7 sets, daily range): BP systolic 129–150; BP diastolic 48–66; PULSE 70–84; RESP 16–20; TEMP 36.4–37; O2SAT 95–99
[2020-09-18] MEDS: LEVOTHYROXINE SODIUM 100 MCG TABLET PO (06:40)
[2020-09-18] MEDS: polyethylene glycoL 3350 17 GM POWD.PACK PO (10:21)
[2020-09-18] MEDS: ASPIRIN 81 MG ENTERIC TABLET PO (10:21)
[2020-09-18] MEDS: LOSARTAN POTASSIUM 50 MG TABLET PO (10:21)
[2020-09-18] MEDS: CLOPIDOGREL BISULFATE 75 MG TABLET PO (10:21)
[2020-09-18] MEDS: hydrALAZINE HCL 50 MG TABLET PO ×2 (10:21→20:16)
[2020-09-18] MEDS: FUROSEMIDE 40 MG TABLET PO (10:21)
[2020-09-18] MEDS: ALPRAZolam (*CRX) 0.25 MG TABLET PO ×2 (10:22→20:16)
[2020-09-18] MEDS: METOPROLOL TARTRATE 12.5 MG TABLET PO ×2 (10:22→20:16)
--- NOTE | 2020-09-18 12:05 | WPDNEURORHBP ---
Subjective Date/time seen: 09/18/20 12:05 80 years old lady admitted to the rehab floor with a diagnosis of stroke in addition to the ongoing history of demyelinating disease. Patient is actively involved in physical therapy and occupational therapy but she is always concerned about the possibility of the surgical intervention on the left side with some difficulties in explanation by the [facility] and our explanation here she has been started on Plavix in addition to aspirin there is no evidence of any cardiac dysrhythmia she is also concerned about the possibility of having had the Holter monitoring which will be done when she gets discharged from here. Review of Systems Review of Systems: All systems reviewed & are unremarkable except as noted in HPI and below Functional Status Ambulation Ability Ability to Ambulate 10 Feet: Independent Ability to Ambulate 50 Feet With 2 Turns: Independent Ability to Ambulate 150 Feet: Standby Assistance Ambulation Assistive Devices: Walker, Wheeled Transfers Ability Ability to Transfer In/Out of Chair: Contact Guard Exam Narrative: Exam Narrative: on today's examination she is awake alert sitting at the bedside the therapist in the room I did explain to her about the possibility of different strokes. High speech is not dysphasic no dysarthric not dysphonic she is awake alert and oriented x3. Heart regular. Lungs clear with no rhonchi or crepitations. Neurological examination revealed right-sided neuro deficit as before though she is improving and abdomen is soft nontender with normal bowel sounds. Objective Data Vital Signs Vital Signs: Vital Signs - 24 hr 09/17/20 13:09 09/17/20 14:00 09/17/20 20:00 Temperature 36.7 C Pulse Rate 75 80 Respiratory Rate 20 20 Blood Pressure 142/64 H Pulse Oximetry 95 97 97 09/17/20 21:05 09/17/20 22:00 09/18/20 06:00 Temperature 36.6 C 36.8 C Pulse Rate 80 83 Respiratory Rate 16 Blood Pressure 150/66 H Pulse Oximetry 95 09/18/20 10:22 Temperature Pulse Rate 84 Respiratory Rate Blood Pressure Pulse Oximetry Intake/Output Intake/Output: Intake & Output 09/15/20 09/16/20 09/17/20 09/18/20 23:59 23:59 23:59 23:59 Intake Total 960 0331 720 480 Balance 960 1080 720 480 Meds/Results Medications: Active Medications Generic Name Dose Route Start Last Admin Trade Name Freq PRN Reason Stop Dose Admin Alprazolam 0.25 mg 09/10/20 03:11 09/18/20 10:22 Alprazolam (*Crx) 0.25 Mg Tablet PO 0.25 mg BID PRN Administration Anxiety Aspirin 81 mg 09/10/20 09:00 09/18/20 10:21 Aspirin 81 Mg Enteric Tablet PO 81 mg DAILY CIARA Administration Bisacodyl 10 mg 09/13/20 17:58 09/16/20 21:59 Bisacodyl 5 Mg Tablet Ec PO 10 mg HS PRN Administration Constipation Clopidogrel Bisulfate 75 mg 09/16/20 09:00 09/18/20 10:21 Clopidogrel Bisulfate 75 Mg Tablet PO 75 mg QAM CIARA Administration Furosemide 40 mg 09/10/20 09:00 09/18/20 10:21 Furosemide 40 Mg Tablet PO 40 mg DAILY CIARA Administration Hydralazine HCl 50 mg 09/09/20 21:00 09/18/20 10:21 Hydralazine Hcl 50 Mg Tablet PO 50 mg Q12HR CIARA Administration Lactulose 30 gm 09/15/20 14:25 Lactulose 20 Gm/30 Ml Udc PO QAM PRN Constipation Levothyroxine Sodium 100 mcg 09/10/20 06:30 09/18/20 06:40 Levothyroxine Sodium 100 Mcg Tablet PO 100 mcg DAILY@0630 CIARA Administration Losartan Potassium 50 mg 09/10/20 09:00 09/18/20 10:21 Losartan Potassium 50 Mg Tablet PO 50 mg DAILY CIARA Administration Metoprolol Tartrate 12.5 mg 09/09/20 21:40 09/18/20 10:22 Metoprolol Tartrate 12.5 Mg Tablet PO 12.5 mg Q12HR CIARA Administration Polyethylene Glycol 17 gm 09/13/20 09:00 09/18/20 10:21 Polyethylene Glycol 3350 17 Gm Powd.Pack PO 17 gm QAM CIARA Administration Ropinirole HCl 5 mg 09/09/20 21:45 09/17/20 20:33 Ropinirole Hcl 1 Mg Tablet PO 5
[2020-09-18] MEDS: traMADol HCL (*CRX) 50 MG TABLET PO (20:14)
[2020-09-18] MEDS: SENNA/DOCUSATE SODIUM TABLET 2 TAB PO (20:16)
[2020-09-18] MEDS: rOPINIRole HCL 1 MG TABLET 5 MG PO (20:17)
[2020-09-19] VITALS (8 sets, daily range): BP systolic 143–167; BP diastolic 46–90; PULSE 77–104; RESP 16–20; TEMP 36.2–36.9; O2SAT 95–98
[2020-09-19] MEDS: LEVOTHYROXINE SODIUM 100 MCG TABLET PO (05:13)
[2020-09-19] MEDS: FUROSEMIDE 40 MG TABLET PO (07:55)
[2020-09-19] MEDS: METOPROLOL TARTRATE 12.5 MG TABLET PO ×2 (07:55→20:22)
[2020-09-19] MEDS: hydrALAZINE HCL 50 MG TABLET PO ×2 (07:55→20:22)
[2020-09-19] MEDS: LOSARTAN POTASSIUM 50 MG TABLET PO (07:55)
--- NOTE | 2020-09-19 09:01 | PC.NURSE ---
epitaxis this am slowed down with pinching pressure to both nostrils, plavix and ASA held, Dr. Coyne made aware. No new orders, v/s remained stable.
[2020-09-19] MEDS: traMADol HCL (*CRX) 50 MG TABLET PO ×2 (09:20→23:01)
--- NOTE | 2020-09-19 11:51 | WPDNEURORHBP ---
Subjective Date/time seen: 09/19/20 11:51 80 years old lady has been admitted to the rehab floor with a diagnosis of a stroke in addition to ongoing history of demyelinating disease. She is actively involved in a physical therapy and occupational therapy has been taking aspirin and Plavix she has had episode of epistaxis in the past and also once today but she is reluctant to get off the Plavix and extremely scared of having stroke. I will help the aspirin and Plavix only for today and will restart tomorrow Review of Systems Review of Systems: All systems reviewed & are unremarkable except as noted in HPI and below Functional Status Ambulation Ability Ability to Ambulate 10 Feet: Independent Ability to Ambulate 50 Feet With 2 Turns: Independent Ability to Ambulate 150 Feet: Standby Assistance Ambulation Assistive Devices: Walker, Wheeled Transfers Ability Ability to Transfer In/Out of Chair: Contact Guard Exam Narrative: Exam Narrative: continues to be awake alert in no obvious distress, there is no nose bleed right now, his speech not dysphasic no dysarthric, extraocular movements are full, face symmetrical, no meningeal signs heart regular, lungs clear, abdomen is soft flap Karly, and neuro examination unchanged she is able to move the right side fairly well. Objective Data Vital Signs Vital Signs: Vital Signs - 24 hr 09/18/20 14:00 09/18/20 20:00 09/18/20 20:16 Temperature 37.0 C Pulse Rate 73 72 70 Respiratory Rate 20 20 Blood Pressure 144/53 H Pulse Oximetry 99 99 09/18/20 21:06 09/19/20 06:00 09/19/20 07:50 Temperature 36.4 C 36.2 C L 36.7 C Pulse Rate 72 78 104 H Respiratory Rate 20 20 20 Blood Pressure 129/48 L 144/52 H 167/90 H Pulse Oximetry 99 98 96 09/19/20 07:55 09/19/20 08:20 09/19/20 09:15 Temperature 36.9 C Pulse Rate 104 H 77 Respiratory Rate 16 Blood Pressure 146/59 H Pulse Oximetry 95 95 Intake/Output Intake/Output: Intake & Output 09/16/20 09/17/20 09/18/20 09/19/20 23:59 23:59 23:59 23:59 Intake Total 1243 720 960 240 Balance 5655 720 960 240 Meds/Results Medications: Active Medications Generic Name Dose Route Start Last Admin Trade Name Freq PRN Reason Stop Dose Admin Alprazolam 0.25 mg 09/10/20 03:11 09/18/20 20:16 Alprazolam (*Crx) 0.25 Mg Tablet PO 0.25 mg BID PRN Administration Anxiety Aspirin 81 mg 09/10/20 09:00 09/18/20 10:21 Aspirin 81 Mg Enteric Tablet PO 81 mg DAILY CIARA Administration Bisacodyl 10 mg 09/13/20 17:58 09/16/20 21:59 Bisacodyl 5 Mg Tablet Ec PO 10 mg HS PRN Administration Constipation Clopidogrel Bisulfate 75 mg 09/16/20 09:00 09/18/20 10:21 Clopidogrel Bisulfate 75 Mg Tablet PO 75 mg QAM CIARA Administration Furosemide 40 mg 09/10/20 09:00 09/19/20 07:55 Furosemide 40 Mg Tablet PO 40 mg DAILY CIARA Administration Hydralazine HCl 50 mg 09/09/20 21:00 09/19/20 07:55 Hydralazine Hcl 50 Mg Tablet PO 50 mg Q12HR CIARA Administration Lactulose 30 gm 09/15/20 14:25 Lactulose 20 Gm/30 Ml Udc PO QAM PRN Constipation Levothyroxine Sodium 100 mcg 09/10/20 06:30 09/19/20 05:13 Levothyroxine Sodium 100 Mcg Tablet PO 100 mcg DAILY@0630 CIARA Administration Losartan Potassium 50 mg 09/10/20 09:00 09/19/20 07:55 Losartan Potassium 50 Mg Tablet PO 50 mg DAILY CIARA Administration Metoprolol Tartrate 12.5 mg 09/09/20 21:40 09/19/20 07:55 Metoprolol Tartrate 12.5 Mg Tablet PO 12.5 mg Q12HR CIARA Administration Polyethylene Glycol 17 gm 09/13/20 09:00 09/18/20 10:21 Polyethylene Glycol 3350 17 Gm Powd.Pack PO 17 gm QAM CIARA Administration Ropinirole HCl 5 mg 09/09/20 21:45 09/18/20 20:17 Ropinirole Hcl 1 Mg Tablet PO 5 mg HS CIARA Administration Senna/Docusate Sodium 2 tab 09/11/20 21:00 09/18/20 20:16 Senna/Docusate Sodium Tablet PO 2 tab HS CIARA Administration Tramadol HCl 50 mg 09/10/20 0
[2020-09-19] MEDS: ALPRAZolam (*CRX) 0.25 MG TABLET PO (20:22)
[2020-09-19] MEDS: rOPINIRole HCL 1 MG TABLET 5 MG PO (20:22)
[2020-09-19] MEDS: SENNA/DOCUSATE SODIUM TABLET 2 TAB PO (20:22)
[2020-09-20 05:40] VITALS: BP 143/63; PULSE 73; RESP 18; TEMP 36.2; O2SAT 95
[2020-09-20] MEDS: LEVOTHYROXINE SODIUM 100 MCG TABLET PO (05:41)
[2020-09-20 09:17] VITALS: PULSE 73
[2020-09-20] MEDS: FUROSEMIDE 40 MG TABLET PO (09:17)
[2020-09-20] MEDS: METOPROLOL TARTRATE 12.5 MG TABLET PO ×2 (09:17→20:39)
[2020-09-20] MEDS: polyethylene glycoL 3350 17 GM POWD.PACK PO (09:17)
[2020-09-20] MEDS: hydrALAZINE HCL 50 MG TABLET PO ×2 (09:17→20:41)
[2020-09-20] MEDS: CLOPIDOGREL BISULFATE 75 MG TABLET PO (09:17)
[2020-09-20] MEDS: LOSARTAN POTASSIUM 50 MG TABLET PO (09:17)
[2020-09-20] MEDS: ASPIRIN 81 MG ENTERIC TABLET PO (09:17)
[2020-09-20] MEDS: ALPRAZolam (*CRX) 0.25 MG TABLET PO ×2 (09:18→20:43)
--- NOTE | 2020-09-20 11:03 | WPDNEURORHBP ---
Subjective Date/time seen: 09/20/20 11:03 80 years old with stroke and history of demyelinating disease has been actively involved in physical therapy and occupational therapy and also very concerned about her physical health routine labs reviewed Review of Systems Review of Systems: All systems reviewed & are unremarkable except as noted in HPI and below Functional Status Ambulation Ability Ability to Ambulate 10 Feet: Independent Ability to Ambulate 50 Feet With 2 Turns: Independent Ability to Ambulate 150 Feet: Standby Assistance Ambulation Assistive Devices: Walker, Wheeled Transfers Ability Ability to Transfer In/Out of Chair: Contact Guard Exam Narrative: Exam Narrative: on examination she is awake in no obvious acute distress ear nose throat examination normal heart regular lungs clear abdomen is soft neuro with a mild neurological deficit on the right side Objective Data Vital Signs Vital Signs: Vital Signs - 24 hr 09/19/20 14:00 09/19/20 20:22 09/19/20 20:26 Temperature 36.7 C 36.4 C Pulse Rate 79 80 79 Respiratory Rate 20 18 Blood Pressure 143/51 H 150/46 H Pulse Oximetry 95 96 09/20/20 05:40 09/20/20 09:17 Temperature 36.2 C L Pulse Rate 73 73 Respiratory Rate 18 Blood Pressure 143/63 H Pulse Oximetry 95 Intake/Output Intake/Output: Intake & Output 09/17/20 09/18/20 09/19/20 09/20/20 23:59 23:59 23:59 23:59 Intake Total 720 960 720 480 Balance 720 960 720 480 Meds/Results Medications: Active Medications Generic Name Dose Route Start Last Admin Trade Name Freq PRN Reason Stop Dose Admin Alprazolam 0.25 mg 09/19/20 21:00 09/20/20 09:18 Alprazolam (*Crx) 0.25 Mg Tablet PO 0.25 mg Q12H CIARA Administration Aspirin 81 mg 09/10/20 09:00 09/20/20 09:17 Aspirin 81 Mg Enteric Tablet PO 81 mg DAILY CIARA Administration Bisacodyl 10 mg 09/13/20 17:58 09/16/20 21:59 Bisacodyl 5 Mg Tablet Ec PO 10 mg HS PRN Administration Constipation Clopidogrel Bisulfate 75 mg 09/16/20 09:00 09/20/20 09:17 Clopidogrel Bisulfate 75 Mg Tablet PO 75 mg QAM CIARA Administration Furosemide 40 mg 09/10/20 09:00 09/20/20 09:17 Furosemide 40 Mg Tablet PO 40 mg DAILY CIARA Administration Hydralazine HCl 50 mg 09/09/20 21:00 09/20/20 09:17 Hydralazine Hcl 50 Mg Tablet PO 50 mg Q12HR CIARA Administration Lactulose 30 gm 09/15/20 14:25 Lactulose 20 Gm/30 Ml Udc PO QAM PRN Constipation Levothyroxine Sodium 100 mcg 09/10/20 06:30 09/20/20 05:41 Levothyroxine Sodium 100 Mcg Tablet PO 100 mcg DAILY@0630 CIARA Administration Losartan Potassium 50 mg 09/10/20 09:00 09/20/20 09:17 Losartan Potassium 50 Mg Tablet PO 50 mg DAILY CIARA Administration Metoprolol Tartrate 12.5 mg 09/09/20 21:40 09/20/20 09:17 Metoprolol Tartrate 12.5 Mg Tablet PO 12.5 mg Q12HR CIARA Administration Polyethylene Glycol 17 gm 09/13/20 09:00 09/20/20 09:17 Polyethylene Glycol 3350 17 Gm Powd.Pack PO 17 gm QAM CIARA Administration Ropinirole HCl 5 mg 09/09/20 21:45 09/19/20 20:22 Ropinirole Hcl 1 Mg Tablet PO 5 mg HS CIARA Administration Senna/Docusate Sodium 2 tab 09/11/20 21:00 09/19/20 20:22 Senna/Docusate Sodium Tablet PO 2 tab HS CIARA Administration Sodium Chloride 1 spray 09/20/20 10:07 Saline 0.65% Jaylon Soln 44 Ml Btl NASAL Q2HR PRN Dry Nasal Passages Tramadol HCl 50 mg 09/10/20 09:31 09/19/20 23:01 Tramadol Hcl (*Crx) 50 Mg Tablet PO 50 mg Q8H PRN Administration Pain Rated 4-6 Progress Note: A&P Assessment and Plan (1) Epistaxis: Code(s): R04.0 - Epistaxis Status: Acute (2) COPD (chronic obstructive pulmonary disease): Code(s): J44.9 - Chronic obstructive pulmonary disease, unspecified Status: Acute (3) GERD (gastroesophageal reflux disease): Code(s): K21.9 - Gastro-esophageal reflux disease without esophagitis
--- NOTE | 2020-09-20 13:15 | PCDIET ---
Nutrition Follow-Up Complete: Nutrition Diagnosis: Obesity related to excessive energy intake prior to admission as evidenced by BMI of 33.7. Nutrition Goal: Patient to consume 75% of meals or greater. Goal met. Patient consuming 75-100% of most meals on regular diet. Recommend heart healthy diet. Stroke Nutrition Therapy handouts left in patient's room. Last recorded weight is 100.4 kg. Recommend obtaining new weight. Bowel Motility: Last BM on 09/18/20 per nursing flowsheet. Labs Reviewed: Hgb (9.6), Hct (30.8), Glu (124), BUN (29), Cr (1.2) Meds Noted: Lasix, Hydralazine, Lactulose, Synthroid, Lopressor, Miralax, Senna Additional Notes: No documented skin breakdown. Will continue to monitor with same goal. Nutrition Monitoring and Evaluation: Follow up every 7 days.
[2020-09-20 14:00] VITALS: BP 118/45; PULSE 78; RESP 20; TEMP 36.6; O2SAT 98
--- NOTE | 2020-09-20 14:16 | PC.NURSE ---
Therapy disciplines concerned about patients energy level, very much decreased this afternoon, B/P taken at 118/45, patient stating she is much more tired than usual, called Dr. Coyne, new orders rec'd and entered.
--- NOTE | 2020-09-20 14:39 | PCOTNOTE ---
Attempted OT session this afternoon, but patient was extremely fatigued and nursing indicated bedrest along with further medical workup. Unable to see patient this date for therapy.
[2020-09-20 14:41] LABS: Basophils Absolute Auto 0.1 K/mm3 (0.0-0.1); Basophils Percent Auto 0.9 % (0.2-1.2); Eosinophils Absolute Auto 0.3 K/mm3 (0-0.3); Eosinophils Percent Auto 3.4 % (0-4.4); Hematocrit 29.9 % (37.0-47.0); Hemoglobin 9.5 g/dL (12.0-15.0); Immature Granulocyte Absolute 0.06 K/mm3 (0.00-0.031); Immature Granulocyte Percent A 0.8 % (0-0.5); Lymphocytes Absolute Auto 1.62 K/mm3 (0.9-3.2); Lymphocytes Percent Auto 21.9 % (18.3-44.2); Mean Corpuscular HGB Conc 31.8 g/dl (32-36); Mean Corpuscular Hemoglobin 30.4 pg (26-34); Mean Corpuscular Volume 95.5 fl (80-100); Mean Platelet Volume 9.2 fl (7.4-10.4); Monocytes Absolute Auto 0.6 K/mm3 (0.1-0.6); Monocytes Percent Auto 7.6 % (2.6-8.5); Neutrophils Absolute Auto 4.8 K/mm3 (1.3-6.7); Neutrophils Percent Auto 65.4 % (45.5-73.1); Platelet Count Result 299 k/mm3 (150-375); Red Blood Count 3.13 M/mm3 (4.2-5.4); White Blood Count 7.4 K/mm3 (4.5-10.0)
[2020-09-20 14:53] LABS: Alanine Aminotransferase 18 U/L (4-35); Albumin Level 3.7 g/dL (3.5-5.1); Alkaline Phosphatase 63 U/L (38-126); Anion Gap 5 mmol/L (8-16); Aspartate Amino Transferase 24 U/L (14-36); Bilirubin,Total 0.1 mg/dL (0.2-1.3); Blood Urea Nitrogen 31 mg/dL (7-17); Calcium 8.9 mg/dL (8.4-10.2); Carbon Dioxide 31 mmol/L (22-30); Chloride 103 mmol/L (98-107); Estimated CRCL calculation 32 ml/min; Estimated Glomerular Filt Rate 33; Glucose 163 mg/dL (65-105); Potassium 4.1 mmol/L (3.4-5.0); Sodium 139 mmol/L (137-145)
--- NOTE | 2020-09-20 19:13 | PC.NURSE ---
Patient to CT scan [id number] [id number], no problems reported while off the floor, All results called to Dr. Coyne, no critical values. Patient made aware of such and has requested fleet enema, order obtained from Dr. Coyne
[2020-09-20] MEDS: SENNA/DOCUSATE SODIUM TABLET 2 TAB PO (20:38)
[2020-09-20 20:39] VITALS: PULSE 70
[2020-09-20] MEDS: rOPINIRole HCL 1 MG TABLET 5 MG PO (20:41)
[2020-09-20 22:00] VITALS: BP 129/54; PULSE 75; RESP 20; TEMP 36.6; O2SAT 96
[2020-09-21] VITALS (8 sets, daily range): BP systolic 127–148; BP diastolic 42–56; PULSE 75–89; RESP 17–20; TEMP 36.3–36.8; O2SAT 95–99
[2020-09-21] MEDS: traMADol HCL (*CRX) 50 MG TABLET PO ×2 (00:41→20:52)
[2020-09-21] MEDS: LEVOTHYROXINE SODIUM 100 MCG TABLET PO (05:35)
[2020-09-21] MEDS: BISACODYL 5 MG TABLET EC 10 MG PO (09:59)
[2020-09-21] MEDS: polyethylene glycoL 3350 17 GM POWD.PACK PO (10:00)
[2020-09-21] MEDS: ALPRAZolam (*CRX) 0.25 MG TABLET PO ×2 (10:00→20:48)
[2020-09-21] MEDS: METOPROLOL TARTRATE 12.5 MG TABLET PO ×2 (10:01→20:49)
[2020-09-21] MEDS: CLOPIDOGREL BISULFATE 75 MG TABLET PO (10:01)
[2020-09-21] MEDS: ASPIRIN 81 MG ENTERIC TABLET PO (10:01)
[2020-09-21] MEDS: FUROSEMIDE 40 MG TABLET PO (10:02)
[2020-09-21] MEDS: LOSARTAN POTASSIUM 50 MG TABLET PO (10:02)
[2020-09-21] MEDS: hydrALAZINE HCL 50 MG TABLET PO ×2 (10:02→20:47)
--- NOTE | 2020-09-21 10:57 | WPDNEURORHBP ---
Subjective Date/time seen: 09/21/20 10:57 80 years old lady with stroke and history of demyelinating disease actively involved in the physical therapy and occupational therapy but her course has been definitely complicated by the anxiety for which she is taking the medication she is supposed to be discharged on 25 of September with instruction for the home health physical therapy and occupational therapy she will be evaluated for the home oxygen if necessary she will require oxygen on p.r.n. basis Review of Systems Review of Systems: All systems reviewed & are unremarkable except as noted in HPI and below Functional Status Ambulation Ability Ability to Ambulate 10 Feet: Standby Assistance Ability to Ambulate 50 Feet With 2 Turns: Standby Assistance Ability to Ambulate 150 Feet: Standby Assistance Ambulation Assistive Devices: Walker, Wheeled Transfers Ability Ability to Transfer In/Out of Chair: Contact Guard Exam Narrative: Exam Narrative: on examination she is awake alert cooperative in no obvious acute distress. His speech nor dysphasic no dysarthric not dysphonic. Follows instructions very well. Extra concern about the difficulties in breathing, demyelinating disease, and stroke, but all the questions were answered she was extremely concerned about the constipation as well pupils round regular feels the vision full, extraocular movements full, face symmetrical, tongue midline, uvula midline, heart regular with no murmur, lungs clear, abdomen is soft labii, Neuro unchanged. Objective Data Vital Signs Vital Signs: Vital Signs - 24 hr 09/20/20 14:00 09/20/20 20:39 09/20/20 22:00 Temperature 36.6 C 36.6 C Pulse Rate 78 70 75 Pulse Rate [With Activity During Therapy Session] Respiratory Rate 20 20 Blood Pressure 118/45 L 129/54 L Pulse Oximetry 98 96 Pulse Oximetry [With Activity During Therapy Session] 09/21/20 05:33 09/21/20 08:32 09/21/20 10:01 Temperature 36.8 C Pulse Rate 78 78 Pulse Rate [With Activity During Therapy Session] 89 Respiratory Rate 20 Blood Pressure 148/56 H Pulse Oximetry 97 Pulse Oximetry [With Activity During Therapy Session] 97 Intake/Output Intake/Output: Intake & Output 09/18/20 09/19/20 09/20/20 09/21/20 23:59 23:59 23:59 23:59 Intake Total 960 720 960 480 Balance 960 720 960 480 Meds/Results Medications: Active Medications Generic Name Dose Route Start Last Admin Trade Name Freq PRN Reason Stop Dose Admin Alprazolam 0.25 mg 09/19/20 21:00 09/21/20 10:00 Alprazolam (*Crx) 0.25 Mg Tablet PO 0.25 mg Q12H CIARA Administration Aspirin 81 mg 09/10/20 09:00 09/21/20 10:01 Aspirin 81 Mg Enteric Tablet PO 81 mg DAILY CIARA Administration Bisacodyl 10 mg 09/13/20 17:58 09/21/20 09:59 Bisacodyl 5 Mg Tablet Ec PO 10 mg HS PRN Administration Constipation Clopidogrel Bisulfate 75 mg 09/16/20 09:00 09/21/20 10:01 Clopidogrel Bisulfate 75 Mg Tablet PO 75 mg QAM CIARA Administration Docusate Sodium 100 mg 09/21/20 21:00 Docusate Sodium 100 Mg Capsule PO Q12HR CIARA Furosemide 40 mg 09/10/20 09:00 09/21/20 10:02 Furosemide 40 Mg Tablet PO 40 mg DAILY CIARA Administration Hydralazine HCl 50 mg 09/09/20 21:00 09/21/20 10:02 Hydralazine Hcl 50 Mg Tablet PO 50 mg Q12HR CIARA Administration Lactulose 30 gm 09/15/20 14:25 Lactulose 20 Gm/30 Ml Udc PO QAM PRN Constipation Levothyroxine Sodium 100 mcg 09/10/20 06:30 09/21/20 05:35 Levothyroxine Sodium 100 Mcg Tablet PO 100 mcg DAILY@0630 CIARA Administration Losartan Potassium 50 mg 09/10/20 09:00 09/21/20 10:02 Losartan Potassium 50 Mg Tablet PO 50 mg DAILY CIARA Administration Metoprolol Tartrate 12.5 mg 09/09/20 21:40 09/21/20 10:01 Metoprolol Tartrate 12.5 Mg Tablet PO 12.5 mg Q12HR CIARA Administration Polyethylene Glycol 17 gm 09/13/20 09:00 09/21/20 10:00 Polyethylene Glycol 3350 17 Gm
[2020-09-21] MEDS: SENNA/DOCUSATE SODIUM TABLET 2 TAB PO (20:47)
[2020-09-21] MEDS: DOCUSATE SODIUM 100 MG CAPSULE PO (20:48)
[2020-09-21] MEDS: rOPINIRole HCL 1 MG TABLET 5 MG PO (20:49)
[2020-09-22 06:00] VITALS: BP 141/53; PULSE 66; RESP 20; TEMP 36.4; O2SAT 99
[2020-09-22] MEDS: LEVOTHYROXINE SODIUM 100 MCG TABLET PO (06:17)
[2020-09-22 08:19] VITALS: PULSE 68
[2020-09-22] MEDS: METOPROLOL TARTRATE 12.5 MG TABLET PO ×2 (08:19→20:28)
[2020-09-22] MEDS: ASPIRIN 81 MG ENTERIC TABLET PO (08:19)
[2020-09-22] MEDS: LOSARTAN POTASSIUM 50 MG TABLET PO (08:19)
[2020-09-22] MEDS: polyethylene glycoL 3350 17 GM POWD.PACK PO (08:19)
[2020-09-22] MEDS: CLOPIDOGREL BISULFATE 75 MG TABLET PO (08:19)
[2020-09-22] MEDS: FUROSEMIDE 40 MG TABLET PO (08:19)
[2020-09-22] MEDS: hydrALAZINE HCL 50 MG TABLET PO (08:19)
[2020-09-22] MEDS: ALPRAZolam (*CRX) 0.25 MG TABLET PO ×2 (08:20→20:31)
[2020-09-22] MEDS: DOCUSATE SODIUM 100 MG CAPSULE PO ×2 (08:20→20:26)
[2020-09-22 14:00] VITALS: BP 118/37; PULSE 77; RESP 20; TEMP 36.6; O2SAT 100
[2020-09-22] MEDS: SENNA/DOCUSATE SODIUM TABLET 2 TAB PO (20:27)
[2020-09-22 20:28] VITALS: PULSE 80
[2020-09-22] MEDS: hydrALAZINE HCL 25 MG TABLET PO (20:28)
[2020-09-22] MEDS: rOPINIRole HCL 1 MG TABLET 5 MG PO (20:29)
[2020-09-22 20:30] VITALS: O2SAT 95
[2020-09-22] MEDS: traMADol HCL (*CRX) 50 MG TABLET PO (20:37)
[2020-09-22 22:00] VITALS: BP 140/46; PULSE 78; RESP 20; TEMP 36.7; O2SAT 99
[2020-09-23] VITALS (13 sets, daily range): BP systolic 115–159; BP diastolic 49–57; PULSE 72–89; RESP 16–22; TEMP 36–37.1; O2SAT 86–100
[2020-09-23] MEDS: LEVOTHYROXINE SODIUM 100 MCG TABLET PO (05:47)
[2020-09-23] MEDS: CLOPIDOGREL BISULFATE 75 MG TABLET PO (09:01)
[2020-09-23] MEDS: hydrALAZINE HCL 25 MG TABLET PO ×2 (09:02→20:06)
[2020-09-23] MEDS: LOSARTAN POTASSIUM 50 MG TABLET PO (09:02)
[2020-09-23] MEDS: ASPIRIN 81 MG ENTERIC TABLET PO (09:02)
[2020-09-23] MEDS: METOPROLOL TARTRATE 12.5 MG TABLET PO ×2 (09:02→20:06)
[2020-09-23] MEDS: FUROSEMIDE 40 MG TABLET PO (09:02)
[2020-09-23] MEDS: DOCUSATE SODIUM 100 MG CAPSULE PO ×2 (09:02→20:06)
[2020-09-23] MEDS: polyethylene glycoL 3350 17 GM POWD.PACK PO (09:02)
[2020-09-23] MEDS: ALPRAZolam (*CRX) 0.25 MG TABLET PO ×2 (09:06→20:53)
--- NOTE | 2020-09-23 11:05 | HOMEO2EVAL ---
Home Oxygen Evaluation RC: Home Oxygen (O2) Evaluation Start: 09/23/20 09:00 Freq: ONCE Status: Active Protocol: RPE Activity Type Activity Date Activity User E-Sign Co-Sign Detail Recorded Client Recorded Date Recorded By Document 09/23/20 10:30 DJO [email or web address] 09/23/20 11:05 DJO Document 09/23/20 10:35 [email or web address] [email or web address] 09/23/20 11:05 DJO Document 09/23/20 10:40 [email or web address] [email or web address] 09/23/20 11:05 DJO Document 09/23/20 10:45 [email or web address] [email or web address] 09/23/20 11:05 DJO Document 09/23/20 11:00 [email or web address] [email or web address] 09/23/20 11:05 DJO 09/23/20 09/23/20 09/23/20 10:30 10:35 10:40 Home O2 Evaluation Test Phase Resting Exercise Exercise Oxygen Delivery Room Air Room Air Nasal Cannula Oxygen Flow Rate (L/min) 1 Pulse Oximetry (90-100 %) 94 86 L 88 L Pulse Rate (60-100 beats/min) 72 85 86 Treatment Charges O2 Evaluation 09/23/20 09/23/20 10:45 11:00 Home O2 Evaluation Test Phase Exercise Resting Oxygen Delivery Nasal Cannula Room Air Oxygen Flow Rate (L/min) 2 Pulse Oximetry (90-100 %) 90 94 Pulse Rate (60-100 beats/min) 89 74 Treatment Charges
--- NOTE | 2020-09-23 11:23 | PCRCNOTE ---
PT HAS HOME O2, 2 LITERS CONTINUOUS. FAMILY TO BRING IN PORTABLE CONCENTRATOR FOR DISCHARGE ON SUNDAY.
[2020-09-23] MEDS: LACTULOSE 20 GM/30 ML UDC 30 GM PO (14:09)
[2020-09-23] MEDS: rOPINIRole HCL 1 MG TABLET 5 MG PO (20:05)
[2020-09-23] MEDS: SENNA/DOCUSATE SODIUM TABLET 2 TAB PO (20:06)
[2020-09-23] MEDS: traMADol HCL (*CRX) 50 MG TABLET PO (20:13)
--- NOTE | 2020-09-24 04:41 | PC.NURSE ---
0130- episode of epistaxis x 5 minutes stopped with pressure- bright red blood- bp 126/56, pulse ox 97% o2 on stand-by- no sob or distress noted
[2020-09-24 04:55] LABS: Basophils Absolute Auto 0.1 K/mm3 (0.0-0.1); Basophils Percent Auto 0.9 % (0.2-1.2); Eosinophils Absolute Auto 0.4 K/mm3 (0-0.3); Eosinophils Percent Auto 6.2 % (0-4.4); Hematocrit 24.1 % (37.0-47.0); Hemoglobin 7.6 g/dL (12.0-15.0); Immature Granulocyte Absolute 0.04 K/mm3 (0.00-0.031); Immature Granulocyte Percent A 0.7 % (0-0.5); Lymphocytes Absolute Auto 1.31 K/mm3 (0.9-3.2); Lymphocytes Percent Auto 23.1 % (18.3-44.2); Mean Corpuscular HGB Conc 31.5 g/dl (32-36); Mean Corpuscular Hemoglobin 29.9 pg (26-34); Mean Corpuscular Volume 94.9 fl (80-100); Mean Platelet Volume 9.4 fl (7.4-10.4); Monocytes Absolute Auto 0.5 K/mm3 (0.1-0.6); Monocytes Percent Auto 8.5 % (2.6-8.5); Neutrophils Absolute Auto 3.4 K/mm3 (1.3-6.7); Neutrophils Percent Auto 60.6 % (45.5-73.1); Platelet Count Result 247 k/mm3 (150-375); Red Blood Count 2.54 M/mm3 (4.2-5.4); White Blood Count 5.7 K/mm3 (4.5-10.0)
[2020-09-24 05:09] LABS: Anion Gap 6 mmol/L (8-16); Blood Urea Nitrogen 33 mg/dL (7-17); Calcium 8.6 mg/dL (8.4-10.2); Carbon Dioxide 30 mmol/L (22-30); Chloride 103 mmol/L (98-107); Estimated CRCL calculation 40 ml/min; Estimated Glomerular Filt Rate 43; Glucose 119 mg/dL (65-105); Potassium 3.9 mmol/L (3.4-5.0); Sodium 139 mmol/L (137-145)
[2020-09-24] MEDS: LEVOTHYROXINE SODIUM 100 MCG TABLET PO (05:56)
[2020-09-24 06:00] VITALS: BP 134/57; PULSE 75; RESP 17; TEMP 36.4; O2SAT 95
--- NOTE | 2020-09-24 06:44 | PC.NURSE ---
awake, no c/o, no further epistaxis
[2020-09-24 08:21] VITALS: PULSE 76; RESP 16; O2SAT 95
[2020-09-24] MEDS: ASPIRIN 81 MG ENTERIC TABLET PO (08:50)
[2020-09-24] MEDS: FUROSEMIDE 40 MG TABLET PO (08:50)
[2020-09-24] MEDS: hydrALAZINE HCL 25 MG TABLET PO ×2 (08:50→20:13)
[2020-09-24] MEDS: CLOPIDOGREL BISULFATE 75 MG TABLET PO (08:50)
[2020-09-24] MEDS: DOCUSATE SODIUM 100 MG CAPSULE PO ×2 (08:50→20:13)
[2020-09-24] MEDS: LOSARTAN POTASSIUM 50 MG TABLET PO (08:50)
[2020-09-24] MEDS: ALPRAZolam (*CRX) 0.25 MG TABLET PO ×2 (08:52→20:12)
[2020-09-24 08:54] VITALS: PULSE 76
[2020-09-24] MEDS: METOPROLOL TARTRATE 12.5 MG TABLET PO ×2 (08:54→20:13)
[2020-09-24 14:00] VITALS: BP 139/52; PULSE 79; RESP 18; TEMP 36.2; O2SAT 97
[2020-09-24 19:50] VITALS: BP 126/64; PULSE 78; RESP 20; TEMP 36.6; O2SAT 99
[2020-09-24 20:13] VITALS: PULSE 78
[2020-09-24] MEDS: rOPINIRole HCL 1 MG TABLET 5 MG PO (20:15)
[2020-09-24] MEDS: traMADol HCL (*CRX) 50 MG TABLET PO (21:18)
[2020-09-24] MEDS: BISACODYL 5 MG TABLET EC 10 MG PO (21:18)
[2020-09-25 05:45] VITALS: BP 134/43; PULSE 72; RESP 16; TEMP 36.8; O2SAT 100
[2020-09-25] MEDS: LEVOTHYROXINE SODIUM 100 MCG TABLET PO (05:50)
[2020-09-25] MEDS: ALPRAZolam (*CRX) 0.25 MG TABLET PO (08:42)
[2020-09-25] MEDS: DOCUSATE SODIUM 100 MG CAPSULE PO (08:42)
[2020-09-25] MEDS: FUROSEMIDE 40 MG TABLET PO (08:42)
[2020-09-25] MEDS: ASPIRIN 81 MG ENTERIC TABLET PO (08:42)
[2020-09-25 08:43] VITALS: PULSE 72
[2020-09-25] MEDS: LOSARTAN POTASSIUM 50 MG TABLET PO (08:43)
[2020-09-25] MEDS: hydrALAZINE HCL 25 MG TABLET PO (08:43)
[2020-09-25] MEDS: METOPROLOL TARTRATE 12.5 MG TABLET PO (08:43)
[2020-09-25 10:17] VITALS: PULSE 78; O2SAT 95
--- NOTE | 2020-09-28 10:32 | WPDNEURORHBP ---
Subjective Date/time seen: 10:32 80 years old lady admitted to the [facility] rehab floor with ongoing diagnosis of his stroke in demyelinating disease has been involved the physical therapy and occupational therapy on a regular basis she does have ongoing complain of intermittent difficulties in breathing at times and also a time she had the epistaxis Review of Systems Review of Systems: All systems reviewed & are unremarkable except as noted in HPI and below Functional Status Ambulation Ability Ability to Ambulate 10 Feet: Independent Ability to Ambulate 50 Feet With 2 Turns: Independent Ability to Ambulate 150 Feet: Standby Assistance Ambulation Assistive Devices: Walker, Wheeled Transfers Ability Ability to Transfer In/Out of Chair: Contact Guard Exam Narrative: Exam Narrative: continues to be awake alert cooperative in no obvious acute distress speech nor dysphasic no dysarthric not dysphonic pupils round regular feels the vision full extraocular muscle full face symmetrical tongue midline motor examination is unchanged heart regular lungs clear abdomen is soft and flabby Objective Data Intake/Output Intake/Output: Intake & Output 09/25/20 09/26/20 09/27/20 09/28/20 23:59 23:59 23:59 23:59 Intake Total 720 Balance 720 Meds/Results Radiology Results: ITS Impressions Head CT 09/20/20 14:54 IMPRESSION: 1. No acute intracranial findings. 2. Chronic age related findings. Progress Note: A&P Assessment and Plan (1) Epistaxis: Code(s): R04.0 - Epistaxis Status: Acute (2) COPD (chronic obstructive pulmonary disease): Code(s): J44.9 - Chronic obstructive pulmonary disease, unspecified Status: Acute (3) GERD (gastroesophageal reflux disease): Code(s): K21.9 - Gastro-esophageal reflux disease without esophagitis Status: Acute (4) Restless leg syndrome: Code(s): G25.81 - Restless legs syndrome Status: Acute (5) Neuropathy: Code(s): G62.9 - Polyneuropathy, unspecified Status: Acute (6) Multiple sclerosis: Code(s): G35 - Multiple sclerosis Status: Acute (7) Hypothyroidism: Code(s): E03.9 - Hypothyroidism, unspecified Status: Acute (8) Hypertension: Code(s): I10 - Essential (primary) hypertension Status: Acute (9) MS (multiple sclerosis): Code(s): G35 - Multiple sclerosis Status: Acute (10) Stroke: Code(s): I63.9 - Cerebral infarction, unspecified Status: Acute Additional Plan all the pros and cons discussed treatment will be continued as such
--- NOTE | 2020-09-28 10:37 | PM.DS ---
DS: Admitting Diagnosis Admitting Diagnosis Admitting Diagnosis: CVAADMISSION FUNCTION: 80 years old lady admitted to the acute rehab of [facility] with the category of his stroke and etiological diagnosis of acute to subacute infarct in the left frontal parietal occipital lobe and basal ganglia in addition to the history of comorbid conditions of 1. Chronic anemia 2. Hypertension 3. Hypothyroidism 4. Multiple sclerosis patient did not receive tPA as she was outside the window for treatment . TTE identified no embolic source but the carotid Doppler documented moderate stenosis on the left ICA and a CTA documented 8 years of hypoattenuation on the basis of the atherosclerosis there was no aneurysm she did have initially swallowing difficulties in addition to the right-sided facial droop right hemiparesis with mild aphasia. Level of function at the time of admission revealed Eating set up only Oral Care partial assistance Toileting Hygiene partial assistance Shower/Bathing partial assistance Upper Body Dressing partial assistance Lower Body Dressing partial assistance Donning/Moraida Footwear supervision Rolling Left and Right partial assistance Sit to Lying partial assistance Lying to Sitting partial assistance Sit to Stand substantial Bed to Chair Transfers partial assistance Toilet Transfers partial assistance Car Transfers partial assistance Walking 10' unable Walking 50' with Two Turns unable Walking 150' unable Curb or Step unable 12 Steps unable unable Picking Up Object unable [Wheelchair Mobility 50'] supervision [Wheelchair Mobility 150'] unable GOALS: Eating [INDEPENDENT] Oral Care [INDEPENDENT] Toileting Hygiene supervision Shower/Bathing setup Upper Body Dressing set up Lower Body Dressing set up Rolling Left and Right [INDEPENDENT] Sit to Lying [INDEPENDENT] Lying to Sitting [INDEPENDENT] Sit to Stand supervision Bed to Chair Transfers supervision Toilet Transfers supervision Car Transfers supervision Walking 10' supervision Walking 50' with Two Turns supervision Walking 150' not applicable Curb or Step supervision 4 Steps partial assistant wrestling coach 12 Steps not applicable Picking Up Object [INDEPENDENT] [Wheelchair Mobility 50'] [INDEPENDENT] [Wheelchair Mobility 150'] [INDEPENDENT] DISCHARGE PERFORMANCE: Eating [INDEPENDENT] Oral Care [INDEPENDENT] Toileting Hygiene [INDEPENDENT] Shower/Bathing set up Upper Body Dressing [INDEPENDENT] Lower Body Dressing [INDEPENDENT] Donning/Moraida Footwear [INDEPENDENT] Rolling Left and Right [INDEPENDENT] Sit to Lying [INDEPENDENT] Lying to Sitting [INDEPENDENT] Sit to Stand [INDEPENDENT] Bed to Chair Transfers [INDEPENDENT] Toilet Transfers [INDEPENDENT] Car Transfers [INDEPENDENT] Walking 10' [INDEPENDENT] Walking 50' with Two Turns [INDEPENDENT] Walking 150' unable Curb or Step [INDEPENDENT] 4 Steps [INDEPENDENT] 12 Steps unable Picking Up Object [INDEPENDENT] [Wheelchair Mobility 50'] [INDEPENDENT] [Wheelchair Mobility 150'] [INDEPENDENT] during the entire hospitalization patient had no falls her condition definitely improved and she was discharged to her home with a home health instructions. DS: Summary Time Spent with Patient Time attestation: Total time spent providing and/or coordinating discharge services: Discharge Plan Discharge Attending physician on discharge: Jordan Sanchez Discharging Clinician: Jerod Coyne Patient Disposition: Home, Self-Care Activity: may shower, no driving and as tolerated Diet: as tolerated and regular Discharge Instructions: Per Care Coordination: Home Health services have been arranged through [facility]. [facility] can be contacted at [phone]. Please fax discharge instructions to [facility] at [phone]. Patient Instructions: Antibiotic Form, Aspirin (By mouth), Urinary Incontinence (GEN), Heart Healthy Diet (DC), Pain Management (DC), COPD (Chronic Ob
== END 2020-09-25 13:35 | disposition home health service (06) | DRG 57 ==
PROVIDERS: Admitting Provider Psychiatry & Neurology Neurology; PCP Family Medicine; Visit Provider Psychiatry & Neurology Neurology
DX: I69.351 Hemiplegia and hemiparesis following cerebral infarction affecting right dominant side (principal); I69.392 Facial weakness following cerebral infarction; I69.320 Aphasia following cerebral infarction; I69.319 Unspecified symptoms and signs involving cognitive functions following cerebral infarction; I69.391 Dysphagia following cerebral infarction; R13.12 Dysphagia, oropharyngeal phase; R04.0 Epistaxis; D64.9 Anemia, unspecified; E03.9 Hypothyroidism, unspecified; G35 Multiple sclerosis; G62.9 Polyneuropathy, unspecified; G25.81 Restless legs syndrome; H02.401 Unspecified ptosis of right eyelid; I10 Essential (primary) hypertension; J44.9 Chronic obstructive pulmonary disease, unspecified; I25.10 Atherosclerotic heart disease of native coronary artery without angina pectoris; K59.09 Other constipation; K21.9 Gastro-esophageal reflux disease without esophagitis; Z87.891 Personal history of nicotine dependence
CPT/HCPCS: 36415; 70450; 80048; 80053; 80061; 85025; 85055; 92523; 94618; 94640; 97110; 97116; 97161; 97166; 97530; 97535; 97542; A9270

== ENCOUNTER 2021-07-24 02:21 | Inpatient (IN) | payer MEDICARE, MEDICAID, SELFPAY ==
[2021-07-24] VITALS (15 sets, daily range): BP systolic 141–188; BP diastolic 52–99; PULSE 64–85; RESP 16–22; TEMP 36.6–36.8; O2SAT 94–100; BMI 34.8; BMI 34.9
--- NOTE | ~2021-07-24 | XR_ITS ---
EXAMINATION: XR elbow RT min 3V INDICATION: Right elbow pain TECHNIQUE: Four views of the right elbow are obtained. COMPARISON: None available FINDINGS: Views of the elbow are suboptimal. There appears to be a small joint effusion. There also a ppears to be mild irregularity in the neck of the radius. The proximal ulna and distal humerus are un remarkable. IMPRESSION: 1. Possible radial neck fracture. Consider further evaluation with CT. Reviewed, dictated and finalized at location A.
--- NOTE | ~2021-07-24 | CT_ITS ---
CT elbow RT wo con DATE: 07/24/2021 15:58 INDICATION: Injury, pain TECHNIQUE: Axial images with sagittal and coronal reconstructions Exam dose: 399.65 mGy-cm total exam DLP. COMPARISON: 07/24/2021 right elbow FINDINGS: There is a subtle nondisplaced nondepressed radial head and neck fracture. There is osteoarthritic change at the elbow joint. IMPRESSION: Subtle nondisplaced radial head and neck fracture Reviewed, dictated and finalized at Location A. Reviewed, dictated and finalized at location A.
--- NOTE | ~2021-07-24 | CT_ITS ---
EXAMINATION: CTA brain carotid DATE: 07/24/2021 03:00 INDICATION: Right-sided weakness TECHNIQUE: Computed tomographic angiography (CTA) of the head was performed without and with 100 mL O mnipaque-350 intravenous contrast. CTA of the neck was performed with intravenous contrast. The dose- length product was 1862.13 mGy-cm. Maximum intensity projection and volume rendered 3D-reconstruction s were created by the technologist on a separate workstation. Automated exposure control and iterativ e reconstruction technique were employed. COMPARISON: 09/20/2020 FINDINGS: HEAD CTA: There is no acute intraparenchymal hemorrhage. No evidence of mass lesion. No evidence of a cute infarction. There is mild periventricular and subcortical hypodensity probably related to small vessel ischemic disease. There is mild prominence of the sulci and ventricles related to cerebral atr ophy. Intracranial calcified cerebral atherosclerosis is noted. There are no extra-axial collections. There is no mass effect or midline shift. Changes in the globes are likely from ocular lens surgery. The visualized sinuses are well aerated. There are bilateral mastoid effusions. There is no significant stenosis of the basilar artery or posterior cerebral arteries. There is no si gnificant stenosis of the intracranial internal carotid arteries or the anterior or middle cerebral a rteries. The anterior communicating artery and posterior communicating arteries are normal. There is no aneurysm. NECK CTA: The thyroid gland is unremarkable. The submandibular and parotid glands are symmetric. Ther e is no lymphadenopathy. There are no masses identified. The airway is unremarkable. There are no oss eous abnormalities. The superior mediastinum is unremarkable. There is 0% stenosis of the proximal right internal carotid artery relative to normal distal artery l umen diameter (NASCET criteria). There is 62% stenosis of the proximal left internal carotid artery r elative to normal distal artery lumen diameter. IMPRESSION: 1. No acute intracranial abnormality. Normal head CTA. 2. 0% stenosis of the proximal right internal carotid artery relative to normal distal artery lumen d iameter (NASCET criteria). 3. 62% stenosis of the proximal left internal carotid artery relative to normal distal artery lumen d iameter. 4. Bilateral mastoid effusions. Reviewed, dictated and finalized at location A. IMPRESSION: 1. No acute intracranial abnormality. Normal head CTA. 2. 0% stenosis of the proximal right internal carotid artery relative to normal distal artery lumen diameter (NASCET criteria). 3. 62% stenosis of the proximal left internal carotid artery relative to normal distal artery lumen diameter. 4. Bilateral mastoid effusions.
--- NOTE | ~2021-07-24 | MR_ITS ---
EXAMINATION: MR brain/brain stem wo con EXAM DATE: 07/25/2021 10:07 INDICATION: Progressing right hemiparesis. History of stroke and MS. TECHNIQUE: Magnetic resonance imaging (MRI) of the brain/brain stem obtained without contrast. Sagitt al T1, axial diffusion, gradient echo (T2*), T1, T2, FLAIR sequences obtained. Correlation is made t o CTA from yesterday. FINDINGS: There is scattered left cerebral acute cortical infarctions, appear to be middle cerebral a rtery distribution. There are 2 punctate left caudate body lacunar infarctions. Several small old lef t cortical infarctions in frontoparietal regions. There is no acute intracranial hemorrhage, brain ma ss, obstructive hydrocephalus or extra-axial collection. There is extensive white matter T2/FLAIR hyp erintensity, nonspecific but likely at least partly microangiopathy. Could also be some component of demyelinating process given history provided. Mastoid air cells are filled bilaterally. There is smal l to moderate-sized left maxillary sinus mucous retention cyst. Flow voids are seen in the cerebral a rteries on the T2 weighted sequences consistent with their expected patency. Mild cerebral atrophy. IMPRESSION: 1. Multiple scattered punctate left-sided cerebral infarctions, appear to be MCA distribution. No co ntralateral or posterior fossa infarctions. 2. Small old left cortical infarctions. 3. Extensive chronic white matter disease. Reviewed, dictated and finalized at location B. IMPRESSION: 1. Multiple scattered punctate left-sided cerebral infarctions, appear to be M CA distribution. No contralateral or posterior fossa infarctions. 2. Small old left cortical infarctions. 3. Extensive chronic white matter disease.
--- NOTE | ~2021-07-24 | XR_ITS ---
EXAMINATION: XR chest 1V portable INDICATION: Cough TECHNIQUE: Portable AP chest at 0302 hours COMPARISON: 01/07/2019 FINDINGS: There is scarring in the lung apices. The lungs are free of acute opacities. No pleural eff usion or pneumothorax is identified. The cardiomediastinal silhouette is normal. IMPRESSION: 1. No acute cardiopulmonary abnormality. Reviewed, dictated and finalized at location A.
[2021-07-24 02:48] LABS: Basophils Absolute Auto 0.1 K/mm3 (0.0-0.1); Basophils Percent Auto 1.1 % (0.2-1.2); Eosinophils Absolute Auto 0.4 K/mm3 (0-0.3); Eosinophils Percent Auto 6.5 % (0-4.4); Hematocrit 30.9 % (37.0-47.0); Hemoglobin 9.2 g/dL (12.0-15.0); Immature Granulocyte Absolute 0.04 K/mm3 (0.00-0.031); Immature Granulocyte Percent A 0.7 % (0-0.5); Lymphocytes Absolute Auto 1.03 K/mm3 (0.9-3.2); Lymphocytes Percent Auto 19.3 % (18.3-44.2); Mean Corpuscular HGB Conc 29.8 g/dl (32-36); Monocytes Absolute Auto 0.5 K/mm3 (0.1-0.6); Neutrophils Absolute Auto 3.4 K/mm3 (1.3-6.7); Neutrophils Percent Auto 63.4 % (45.5-73.1); Platelet Count Result 274 k/mm3 (150-375); Red Blood Count 2.97 M/mm3 (4.2-5.4); Red Cell Distribution Width 13.8 % (11.5-14.5); White Blood Count 5.4 K/mm3 (4.5-10.0)
[2021-07-24 02:49] LABS: Platelet Estimate Adequate (Adequate)
[2021-07-24 02:50] LABS: Hypochromasia 1+ (NORMAL)
[2021-07-24 02:52] LABS: INR 0.9; Prothrombin Time 11.9 Seconds (11.1-14.7)
[2021-07-24 02:53] LABS: Alanine Aminotransferase 21 U/L (4-35); Alkaline Phosphatase 53 U/L (38-126); Anion Gap 7 mmol/L (8-16); Aspartate Amino Transferase 36 U/L (14-36); Bilirubin,Total 0.3 mg/dL (0.2-1.3); Blood Urea Nitrogen 37 mg/dL (7-17); Calcium 9.3 mg/dL (8.4-10.2); Carbon Dioxide 27 mmol/L (22-30); Chloride 105 mmol/L (98-107); Estimated CRCL calculation 39 ml/min; Estimated Glomerular Filt Rate 39; Glucose 158 mg/dL (65-110); Lactic Acid Reflex 1.1 mmol/L (0.7-2.1); Magnesium 2.6 mg/dL (1.6-2.3); Partial Thromboplastin Time 23.5 SECONDS (22.3-36.8); Potassium 4.6 mmol/L (3.4-5.0); Sodium 139 mmol/L (137-145)
[2021-07-24 03:11] LABS: Troponin I 0.041 ng/mL (0.000-0.034)
--- NOTE | 2021-07-24 03:18 | ED.NEUROSD ---
HPI - Neuro Symptoms/Deficit General Chief Complaint: Suspected CVA Stated Complaint: CVA symptoms, right sided deficits Time Seen by Provider: 07/24/21 02:27 History of Present Illness HPI Narrative: Patient is a 81-year-old female presents the emergency department with complaint of right-sided weakness. Patient has prior history of CVA approximately 1 year ago and was initially reported to have had last known well at 11 PM last night and further discussion with the patient she woke up at 1 AM walk to the bathroom went to the bathroom and then walked back to her bed and noticed at that time she developed right-sided weakness patient states that her right arm will not do what she wants to to do in her right leg is also weak as well. The patient reports that she has history of a Perdomo's palsy with right-sided facial paralysis. Patient is not on any anticoagulants denies head trauma. Related Data Home Medications Medication Instructions Recorded Confirmed albuterol sulfate 07/24/21 [id number] INHALATION 07/24/21 [Trelegy Ellipta] trazodone 07/24/21 Allergies Allergy/AdvReac Type Severity Reaction Status Date / Time adenosine Allergy Severe Unknown Verified 07/24/21 05:19 cephalexin Allergy Severe Unknown Verified 07/24/21 05:19 Penicillins Allergy Severe Unknown Verified 07/24/21 05:19 Gbdwocm-Xpf-Bky Reductase Allergy Unknown Unknown Verified 07/24/21 05:19 Inhibitor Review of Systems Review of Systems: A 10 system review of systems was completed on the patient and is negative except for what is stated in the HPI. Nursing and ancillary documentation was reviewed. [facility] Family History Family History Mother Breast cancer Father Diabetes mellitus Social History Social History Smoking status: Former smoker Alcohol intake: never Substance use: never Substance use type: does not use Gender identity (if verbalized by the patient): Female Spiritual care concerns: No Exam Narrative: GENERAL: Well-appearing, well-nourished, and in no acute distress. HEAD: Normocephalic, atraumatic. EYES: PERRLA and EOMI. ENT: Nares clear, no rhinorrhea or epistaxis. Mucous membranes moist. Right side of face NECK: Supple. CHEST: Clear to auscultation. No respiratory distress. HEART: Regular rate and rhythm. No murmur heard. Normal peripheral pulses. ABDOMEN: Soft, nontender, nondistended, normal active bowel sounds. EXTREMITIES: Normal range of motion. No edema. SKIN: Warm, dry, no rash. NEURO: Right upper extremity has significant weakness and ataxia right lower extremity the patient can barely lift off of the bed to gravity. Alert and oriented x3. PSYCH: Normal mood and affect. Course Course Emergency Course: The case was discussed with the stroke neurologist at [facility] given this is the same distribution as her previous strokes it was determined that at this time she did not meet the criteria for TPA. Vital Signs Vital signs: Vital Signs Temperature 36.6 C 07/24/21 02:19 Pulse Rate 85 07/24/21 02:19 Respiratory Rate 20 07/24/21 02:19 Blood Pressure 188/99 H 07/24/21 02:19 Pulse Oximetry 100 07/24/21 02:19 Temperature 36.6 C 07/24/21 02:19 Pulse Rate 66 07/24/21 05:25 Respiratory Rate 19 07/24/21 05:25 Blood Pressure 164/65 H 07/24/21 05:25 Pulse Oximetry 100 07/24/21 05:25 MDM - Neuro Symptoms/Deficit Lab Data Result diagrams: 07/24/21 02:36 07/24/21 02:36 Labs: Lab Results 07/24/21 07/24/21 07/24/21 Range/Units 02:36 02:36 02:36 WBC 5.4 (4.5-10.0) K/mm3 RBC 2.97 L (4.2-5.4) M/mm3 Hgb 9.2 L (12.0-15.0) g/dL Hct 30.9 L (37.0-47.0) % MCV 104.0 H (80-100) fl MCH 31.0 (26-34) pg MCHC 29.8 L (32-36) g/dl RDW 13.8 (11.5-14.5) % Plt Count 274 (1
[2021-07-24 04:11] LABS: Add Urine Microscopic? YES; Appearance Urine Clear (Clear); Bacteria Urine Trace /hpf; Bilirubin Urine Negative (Negative); Blood Urine Negative (Negative); Color Urine Colorless (Yellow); Glucose Urine UA Negative (Negative); Ketones Urine Negative (Negative); Leukocyte Esterase Ur Trace LEU/UL (Negative); Mucus Urine Rare /lpf; Nitrate Urine Negative (Negative); Protein Urine Negative (Negative); RBC Urine 0-2 /hpf (0-2); Specific Grav Ur 1.013 (1.001-1.035); Urobilinogen Urine Negative mg/dL (<2.0)
[2021-07-24 06:25] LABS: Glucose Point of Care 149 mg/dl (65-105)
[2021-07-24 06:38] LABS: Troponin I 0.043 ng/mL (0.000-0.034)
--- NOTE | 2021-07-24 08:16 | PC.NURSE ---
This patient, Linda Palmer, was admitted to IMU Room 210-01. Patient/family oriented to hospital policies and general routines including ID bracelet, bed and alarms, visiting hours, pain management, procedures, bathroom and other care routines, personal items, smoking policy, room service/diet, and visiting hours. Information on how to activate the Rapid Response Team has been discussed. Patient/Family are encouraged to report perceived risks to care and to ask questions if they do not understand what they are told or what they should do.
--- NOTE | 2021-07-24 08:57 | PM.IMHP ---
H&P: HPI History of Present Illness Date/Time: 07/24/21 08:57 Chief Complaint: Right upper extremity weakness Narrative: 81-year-old female with longstanding history of multiple sclerosis as well as history of stroke with right arm and leg weakness in August 2020 was in her usual state of health with mild right leg weakness until about 1:00 a.m. on July 24. She awakened to urinate. She walked to the bathroom without difficulty. She urinated. She cleaned herself with her left arm. She walked back to the bed. After sitting down on the bed she noted that her right arm would not do what she wanted to. It was weak and uncoordinated. She awakened her grandson and EMS was summoned. She was brought the emergency department. ED physician wine consultant with stroke neurologist by phone and it was determined that she was not a candidate for tPA due to having a stroke-like symptoms in a distribution of her previous stroke. She feels ER might be a bit stronger today but is still severely impaired. While being transported into the emergency department bay by EMS personnel her right arm struck the door facing causing a skin tear and ecchymosis. Initial radiograph suggested possible radial fracture. She denied other symptoms including headache palpitations fevers chills stiff neck increased shortness of breath macroscopic bleeding numbness blurred vision double vision vertigo or speech difficulties. After her 1st stroke she took aspirin and Plavix from August 2020 until November of 2020. Since then she has taken. She had a right carotid endarterectomy in 2018 and has been noted to have plaque in the left carotid but not at surgical threshold. She was diagnosed with multiple sclerosis at about age 46. She had MRI and lumbar puncture and extensive evaluation by a neurologist for other etiologies. Initial symptoms were double vision and leg weakness and decreased exercise tolerance. She developed progressive parasthesia in both legs. Recently she experienced increased difficulty with ambulation and eversion of feet. 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 She gets iron infusions and takes folic acid daily. Her last blood transfusion was February 2021. Review of Systems Review of Systems: All systems reviewed & are unremarkable except as noted in HPI and below [facility] Past Medical History Medical History (Updated 07/24/21 @ 09:57 by Jasvir Camacho MD) Anemia due to chronic blood loss Atherosclerotic cerebrovascular disease Chronic depression COPD (chronic obstructive pulmonary disease) GERD (gastroesophageal reflux disease) Hypertension Hypothyroidism Multiple sclerosis Neuropathy Restless leg syndrome Stroke Surgical History Surgical History (Updated 07/24/21 @ 09:39 by Jasvir Camacho MD) History of right-sided carotid endarterectomy History of total right knee replacement Family History Family History (Updated 07/24/21 @ 09:41 by Jasvir aCmacho MD) Mother Breast cancer Father Diabetes mellitus Social History Social History (Updated 07/24/21 @ 09:40 by Jasvir Camacho MD) Smoking packs per day: 1 Smoking cigarettes per day: 20.0 Years smoked: 30 Smoking pack-years: 30.00 Smoking status: Former smoker Tobacco type: cigarettes Alcohol intake: current Alcohol use details: occasional glass of wine, one every few months Substance use: never Substance use type: does not use Living arrangements: with family Occupation/Education: retired Gender identity (if verbalized by the patient): Female Spiritual care concerns: No Meds Home Medications and Allergies Home Medications Medication Instructions Recorded Confirmed Type alprazolam [Xanax] 0.25 mg PO BID PRN #60 tablet 09/25/20 Rx aspirin 81 mg PO DAILY #30 tablet 09/25/20 Rx furosemide [Lasix] 40 mg PO DAILY #30 tablet 09/25/20 Rx hydralazine 50 mg PO BID #60 tablet
[2021-07-24] MEDS: ASPIRIN 81 MG CHEWABLE TABLET PO (09:45)
--- NOTE | 2021-07-24 09:47 | ECG_ITS ---
Measurements Intervals [place] Rate: 66 P: 63 MN: 159 QRS: 6 QRSD: 90 T: 76 QT: 403 QTc: 422 Interpretive Statements SINUS RHYTHM BASELINE WANDER- V3 NORMAL ECG Electronically Signed On 07-24-2021 13:10:57 CDT by Erik Lyon D.O.
[2021-07-24 13:19] LABS: Troponin I 0.039 ng/mL (0.000-0.034)
[2021-07-24] MEDS: FERROUS SULFATE 324 MG TABLET PO (16:49)
[2021-07-24] MEDS: hydrALAZINE HCL 50 MG TABLET PO (16:49)
--- NOTE | 2021-07-24 18:59 | PC.NURSE ---
This patient, Linda Palmer, was transferred to [facility] on 07/24/21 at 1859. Personal belongings sent with patient. Report given to Yesi Calderon RN. Appropriate documentation sent with patient.
[2021-07-24] MEDS: ACETAMINOPHEN 500 MG TABLET 1000 MG PO (20:09)
[2021-07-24] MEDS: rOPINIRole HCL 1 MG TABLET 5 MG PO (20:12)
[2021-07-24] MEDS: traZODone HCL 50 MG TABLET 150 MG PO (20:12)
[2021-07-24] MEDS: METOPROLOL TARTRATE 12.5 MG TABLET PO (20:12)
[2021-07-25] VITALS (12 sets, daily range): BP systolic 159–183; BP diastolic 54–65; PULSE 59–81; RESP 17–22; TEMP 36.2–36.8; O2SAT 96–100
[2021-07-25 06:17] LABS: Immature Reticulocyte Fraction 33.4 % (3.0-15.9); Reticulocyte Hemoglobin Conten 32.6 pg (28.2-35.7); Reticulocyte Percent 6.85 % (0.7-4.3); Reticulocytes Absolute 0.19 B/L (32.2-175.7)
[2021-07-25 06:27] LABS: Cholesterol 196 mg/dL (0-200); HDL Direct 31 mg/dL; Triglycerides 185 mg/dL (<150)
[2021-07-25 06:38] LABS: LDL Cholesterol Direct 103 mg/dL
[2021-07-25] MEDS: LEVOTHYROXINE SODIUM 100 MCG TABLET PO (06:52)
[2021-07-25 07:42] LABS: Folic Acid > 20.0 ng/mL (2.76->20)
[2021-07-25] MEDS: ALBUTEROL SULFATE NEB 2.5 MG/0.5 ML INH INHALATION (08:14)
[2021-07-25] MEDS: FLUTICASONE/UMECLIDIN/VILANTER 100-62.5-25 MCG ELLIPTA 1 PUFF INHALATION (08:15)
[2021-07-25] MEDS: polyethylene glycoL 3350 17 GM POWD.PACK PO (08:46)
[2021-07-25] MEDS: LOSARTAN POTASSIUM 25 MG TABLET PO (08:46)
[2021-07-25] MEDS: METOPROLOL TARTRATE 12.5 MG TABLET PO ×2 (08:46→20:37)
[2021-07-25] MEDS: FUROSEMIDE 20 MG TABLET PO (08:46)
[2021-07-25] MEDS: FOLIC ACID 1 MG TABLET PO (08:46)
[2021-07-25] MEDS: ASPIRIN 81 MG ENTERIC TABLET PO (08:47)
[2021-07-25] MEDS: FERROUS SULFATE 324 MG TABLET PO ×3 (08:47→17:10)
[2021-07-25] MEDS: PANTOPRAZOLE 40 MG TABLET PO (08:47)
[2021-07-25] MEDS: hydrALAZINE HCL 50 MG TABLET PO ×2 (08:47→17:10)
[2021-07-25 09:13] LABS: Iron 33 ug/dL (37-170)
[2021-07-25 09:22] LABS: Percent Iron Saturation 10 % (20-50)
[2021-07-25 11:34] LABS: Anion Gap 6 mmol/L (8-16); Blood Urea Nitrogen 25 mg/dL (7-17); Calcium 8.9 mg/dL (8.4-10.2); Carbon Dioxide 27 mmol/L (22-30); Chloride 106 mmol/L (98-107); Estimated CRCL calculation 35 ml/min; Estimated Glomerular Filt Rate 36; Glucose 144 mg/dL (65-110); Potassium 4.1 mmol/L (3.4-5.0); Sodium 139 mmol/L (137-145)
[2021-07-25 11:36] LABS: Hemoglobin 8.8 g/dL (12.0-15.0); Mean Corpuscular HGB Conc 29.3 g/dl (32-36); Mean Corpuscular Volume 105.6 fl (80-100); Mean Platelet Volume 10.7 fl (7.4-10.4); Platelet Count Result 246 k/mm3 (150-375); Red Blood Count 2.84 M/mm3 (4.2-5.4); Red Cell Distribution Width 13.7 % (11.5-14.5); White Blood Count 5.1 K/mm3 (4.5-10.0)
--- NOTE | 2021-07-25 11:48 | PCOTNOTE ---
Attempted OT evaluation, awaiting ortho consult, will follow.
--- NOTE | 2021-07-25 15:22 | PM.CNOR ---
Assessment and Plan Assessment and plan (1) Radial head fracture: Onset Date: 07/24/21 Qualifiers: Encounter type: initial encounter Fracture type: closed Fracture alignment: nondisplaced Laterality: right Qualified Code(s): S52.124A - Nondisplaced fracture of head of right radius, initial encounter for closed fracture Code(s): S52.123A - Displaced fracture of head of unspecified radius, initial encounter for closed fracture Status: Acute Assessment and Plan: 81 year old female with a non displaced right radial head fracture demonstrated via CT of the elbow. Her plan is to be discharged to home with PT/OT and she will then follow up in 4 weeks in the office for a repeat xray. She is to use a sling while she is out of the house but in the home she can begin to use her arm as she is able. She will also keep the skin tear on her arm clean and use ROBERT while at home. History of Present Illness HPI Consult date: 07/25/21 Consult reason: fracture (right radial head, non displaced) Chief complaint: right elbow pain Narrative: 81 year old female admitted to the hospital for due to a CVA on 07/24/19. During her transport to the hospital her right elbow was struck on a door frame. She now has bruising and skin tearing that has been covered with a Mediplex dressing while at the hospital. She does report a history of CVA on her right side which has caused limited ROM to the right arm and right leg. Review of Systems Review of Systems: All systems reviewed & are unremarkable except as noted in HPI and below Musculoskeletal: Musculoskeletal: Reports stiffness (right elbow) Integumentary/Breasts: Skin/Breast: Reports wounds (skin tears and ecchymosis proximal to right elbow) [facility] Past Medical History Medical History (Updated 07/25/21 @ 16:15 by ISAÍAS Momin) Anemia due to chronic blood loss Atherosclerotic cerebrovascular disease Chronic depression COPD (chronic obstructive pulmonary disease) GERD (gastroesophageal reflux disease) Hypertension Hypothyroidism Injury of right elbow (07/24/21) Multiple sclerosis Neuropathy Radial head fracture (07/24/21) Restless leg syndrome Stroke Surgical History Surgical History History of right-sided carotid endarterectomy History of total right knee replacement Family History Family History Mother Breast cancer Father Diabetes mellitus Social History Social History Smoking packs per day: 1 Smoking cigarettes per day: 20.0 Years smoked: 30 Smoking pack-years: 30.00 Smoking status: Former smoker Tobacco type: cigarettes Alcohol intake: current Alcohol use details: occasional glass of wine, one every few months Substance use: never Substance use type: does not use Living arrangements: with family Occupation/Education: retired Gender identity (if verbalized by the patient): Female Spiritual care concerns: No Meds Home Medications and Allergies Home Medications Medication Instructions Recorded Confirmed Type aspirin 81 mg PO DAILY #30 tablet 09/25/20 07/24/21 Rx hydralazine 50 mg PO BID #60 tablet 09/25/20 07/24/21 Rx levothyroxine [Synthroid] 100 mcg PO DAILY #30 tablet 09/25/20 07/24/21 Rx metoprolol tartrate 12.5 mg PO BID #60 tablet 09/25/20 07/24/21 Rx polyethylene glycol 3350 [Miralax] 17 g PO QAM #30 ea 09/25/20 07/24/21 Rx ropinirole [Requip] 5 mg PO HS #30 tablet 09/25/20 07/24/21 Rx tramadol 50 mg PO Q8H PRN #50 tablet 09/25/20 07/24/21 Rx albuterol sulfate 2.5 mg INHALATION DAILY 07/24/21 07/24/21 History ferrous sulfate 325 mg PO TID 07/24/21 07/24/21 History azuldzwfolc-ncigzpmiy-dwfskvdh 1 inh INHALATION DAILY 07/24/21 07/24/21 History [Trelegy Ellipta] furosemide 20 mg PO DAILY 07/24/21 07/24/21 Hist
--- NOTE | 2021-07-25 16:46 | PM.IMPN ---
Progress Note: A&P Assessment and Plan (1) Right arm weakness: Code(s): R29.898 - Other symptoms and signs involving the musculoskeletal system Status: Acute Assessment and Plan: differential diagnosis includes acute ischemic stroke, transient ischemic attack, and multiple sclerosis no bleeding noted on CT scanning ( of interest, and neither is an old stroke noted) no history to suggest seizure with Reji's paralysis no history to suggest cervical radiculopathy or brachial plexopathy MRI brain pending CTA carotids pending monitor on telemetry if stroke present consider addition of clopidogrel again for a 6-8 weeks pending results of carotid CTA she may be a candidate for surgical intervention 07/25 interval history Patient remains clinically stable MRI does show patient has multiple scattered punctate left-sided cerebral infarctions, appear to be MCA distribution. No contralateral or posterior fossa infarctions. Small old left cortical infarctions. patient currently on aspirin 81 mg q.d., will consult Neurology further recommendation, will do lipid profile, patient had a injury to right arm on her way to the hospital non displaced right radial head fracture seen by Ortho surgery recommending conservative managed and will follow-up in 4 weeks, patient work with PT OT and further recommendation to follow. (2) Atherosclerotic cerebrovascular disease: Code(s): I67.2 - Cerebral atherosclerosis Status: Acute Assessment and Plan: status post right carotid endarterectomy with known atherosclerotic disease in the left carotid results of CTA pending history of intolerance or allergy with statin therapy so will avoid at this time (3) Multiple sclerosis: Code(s): G35 - Multiple sclerosis Status: Acute Assessment and Plan: diagnosed at age 46 with lumbar puncture and MRI (4) Neuropathy: Code(s): G62.9 - Polyneuropathy, unspecified Status: Acute Assessment and Plan: chronic with paresthesias in the feet and fingertips (5) Elevated troponin: Code(s): R77.8 - Other specified abnormalities of plasma proteins Status: Acute (6) Anemia due to chronic blood loss: Code(s): D50.0 - Iron deficiency anemia secondary to blood loss (chronic) Status: Acute Assessment and Plan: followed as outpatient by hematology with intermittent iron infusions and blood transfusions p.r.n. (7) Injury of right elbow: Onset Date: 07/24/21 Qualifiers: Encounter type: subsequent encounter Qualified Code(s): S59.901D - Unspecified injury of right elbow, subsequent encounter Code(s): S59.901A - Unspecified injury of right elbow, initial encounter Status: Inactive Assessment and Plan: x-ray suggest radial neck fracture CT pending (8) Hypothyroidism: Qualifiers: Hypothyroidism type: acquired Qualified Code(s): E03.9 - Hypothyroidism, unspecified Code(s): E03.9 - Hypothyroidism, unspecified Status: Acute Assessment and Plan: continue home regimen (9) Hypertension: Qualifiers: Hypertension type: unspecified Qualified Code(s): I10 - Essential (primary) hypertension Code(s): I10 - Essential (primary) hypertension Status: Acute Assessment and Plan: continue home regimen (10) Restless leg syndrome: Code(s): G25.81 - Restless legs syndrome Status: Acute Assessment and Plan: discussed with patient that this may be due to a combination of iron deficiency anemia and trazodone use continue home regimen (11) COPD (chronic obstructive pulmonary disease): Qualifiers: COPD type: unspecified COPD Qualified Code(s): J44.9 - Chronic obstructive pulmonary disease, unspecified Code(s): J44.9 - Chronic obstructive pulmonary disease, unspecified Status: Acute Assessment and Plan: clinically stable con
[2021-07-25] MEDS: ALPRAZolam (*CRX) 0.5 MG TABLET PO (17:21)
[2021-07-25] MEDS: rOPINIRole HCL 1 MG TABLET 5 MG PO (20:37)
[2021-07-25] MEDS: traZODone HCL 50 MG TABLET 150 MG PO (20:37)
[2021-07-26] VITALS (16 sets, daily range): BP systolic 128–170; BP diastolic 48–77; PULSE 64–92; RESP 15–28; TEMP 36.2–36.7; O2SAT 92–99
[2021-07-26] MEDS: LEVOTHYROXINE SODIUM 100 MCG TABLET PO (05:22)
[2021-07-26 06:14] LABS: Hematocrit 32.2 % (37.0-47.0); Hemoglobin 9.4 g/dL (12.0-15.0); Mean Corpuscular HGB Conc 29.2 g/dl (32-36); Mean Corpuscular Hemoglobin 30.3 pg (26-34); Mean Corpuscular Volume 103.9 fl (80-100); Mean Platelet Volume 9.6 fl (7.4-10.4); Platelet Count Result 255 k/mm3 (150-375); Red Cell Distribution Width 13.6 % (11.5-14.5); White Blood Count 5.1 K/mm3 (4.5-10.0)
[2021-07-26 06:25] LABS: Cholesterol 196 mg/dL (0-200); HDL Direct 32 mg/dL; Triglycerides 174 mg/dL (<150)
[2021-07-26 06:36] LABS: LDL Cholesterol Direct 112 mg/dL
[2021-07-26 06:45] LABS: Anion Gap 7 mmol/L (8-16); Blood Urea Nitrogen 25 mg/dL (7-17); Calcium 8.7 mg/dL (8.4-10.2); Carbon Dioxide 27 mmol/L (22-30); Chloride 104 mmol/L (98-107); Estimated CRCL calculation 37 ml/min; Estimated Glomerular Filt Rate 39; Glucose 138 mg/dL (65-110); Potassium 4.1 mmol/L (3.4-5.0); Sodium 138 mmol/L (137-145)
[2021-07-26] MEDS: FLUTICASONE/UMECLIDIN/VILANTER 100-62.5-25 MCG ELLIPTA 1 PUFF INHALATION (08:09)
[2021-07-26] MEDS: METOPROLOL TARTRATE 12.5 MG TABLET PO ×2 (08:14→20:29)
[2021-07-26] MEDS: PANTOPRAZOLE 40 MG TABLET PO (08:14)
[2021-07-26] MEDS: polyethylene glycoL 3350 17 GM POWD.PACK PO (08:14)
[2021-07-26] MEDS: hydrALAZINE HCL 50 MG TABLET PO ×2 (08:14→18:32)
[2021-07-26] MEDS: FERROUS SULFATE 324 MG TABLET PO ×3 (08:15→18:32)
[2021-07-26] MEDS: ASPIRIN 81 MG ENTERIC TABLET PO (08:15)
[2021-07-26] MEDS: FUROSEMIDE 20 MG TABLET PO (08:15)
[2021-07-26] MEDS: FOLIC ACID 1 MG TABLET PO (08:15)
[2021-07-26] MEDS: LOSARTAN POTASSIUM 25 MG TABLET PO (08:15)
--- NOTE | 2021-07-26 08:47 | PCOTNOTE ---
Attempted OT evaluation, per RN hold for morning, will follow and attempt at later time.
--- NOTE | 2021-07-26 08:49 | PCPTNOTE ---
Attempted PT eval, hold for morning per RN. Will try again at later time.
[2021-07-26] MEDS: ALPRAZolam (*CRX) 0.5 MG TABLET PO ×2 (08:53→20:34)
--- NOTE | 2021-07-26 12:04 | PM.IMPN ---
Progress Note: A&P Assessment and Plan (1) Right arm weakness: Code(s): R29.898 - Other symptoms and signs involving the musculoskeletal system Status: Acute Assessment and Plan: Differential diagnosis includes acute ischemic stroke, transient ischemic attack, and multiple sclerosis no bleeding noted on CT scanning ( of interest, and neither is an old stroke noted) no history to suggest seizure with Reji's paralysis no history to suggest cervical radiculopathy or brachial plexopathy MRI brain pending CTA carotids pending Monitor on telemetry (2) Atherosclerotic cerebrovascular disease: Code(s): I67.2 - Cerebral atherosclerosis Status: Acute Assessment and Plan: Status post right carotid endarterectomy with known atherosclerotic disease in the left carotid Results of CTA pending History of intolerance or allergy with statin therapy so will avoid at this time (3) Multiple sclerosis: Code(s): G35 - Multiple sclerosis Status: Acute Assessment and Plan: Diagnosed at age 46 with lumbar puncture and MRI (4) Neuropathy: Code(s): G62.9 - Polyneuropathy, unspecified Status: Acute Assessment and Plan: Chronic with paresthesias in the feet and fingertips (5) Elevated troponin: Code(s): R77.8 - Other specified abnormalities of plasma proteins Status: Acute (6) Anemia due to chronic blood loss: Code(s): D50.0 - Iron deficiency anemia secondary to blood loss (chronic) Status: Acute Assessment and Plan: Followed as outpatient by hematology with intermittent iron infusions and blood transfusions p.r.n. (7) Injury of right elbow: Onset Date: 07/24/21 Qualifiers: Encounter type: subsequent encounter Qualified Code(s): S59.901D - Unspecified injury of right elbow, subsequent encounter Code(s): S59.901A - Unspecified injury of right elbow, initial encounter Status: Inactive Assessment and Plan: X-ray suggest radial neck fracture CT pending (8) Hypothyroidism: Qualifiers: Hypothyroidism type: acquired Qualified Code(s): E03.9 - Hypothyroidism, unspecified Code(s): E03.9 - Hypothyroidism, unspecified Status: Acute Assessment and Plan: Continue home regimen (9) Hypertension: Qualifiers: Hypertension type: unspecified Qualified Code(s): I10 - Essential (primary) hypertension Code(s): I10 - Essential (primary) hypertension Status: Acute Assessment and Plan: Continue home regimen (10) Restless leg syndrome: Code(s): G25.81 - Restless legs syndrome Status: Acute Assessment and Plan: Discussed with patient that this may be due to a combination of iron deficiency anemia and trazodone use continue home regimen (11) COPD (chronic obstructive pulmonary disease): Qualifiers: COPD type: unspecified COPD Qualified Code(s): J44.9 - Chronic obstructive pulmonary disease, unspecified Code(s): J44.9 - Chronic obstructive pulmonary disease, unspecified Status: Acute Assessment and Plan: Clinically stable Continue home regimen (12) Chronic depression: Code(s): F32.9 - Major depressive disorder, single episode, unspecified Status: Acute Assessment and Plan: Continue trazodone at bedtime Subjective Date/time seen: 07/26/21 12:04 Interval history: 81-year-old female with longstanding history of multiple sclerosis as well as history of stroke with right arm and leg weakness in August 2020 was in her usual state of health with mild right leg weakness until about 1:00 a.m. on July 24. Pt is being treated for CVA. ? Ms flare. Review of Systems Review of Systems: All systems reviewed & are unremarkable except as noted in HPI and below Exam Narrative: Patient is comfortable HEENT: eyes are clear and none icteric LUNGS:Clear lungs H
--- NOTE | 2021-07-26 12:45 | PM.PNORT ---
Progress Note: A&P Assessment and Plan (1) Radial head fracture: Onset Date: 07/24/21 Qualifiers: Encounter type: initial encounter Fracture type: closed Fracture alignment: nondisplaced Laterality: right Qualified Code(s): S52.124A - Nondisplaced fracture of head of right radius, initial encounter for closed fracture Code(s): S52.123A - Displaced fracture of head of unspecified radius, initial encounter for closed fracture Status: Acute Assessment and Plan: 81 year old female with acute non displaced fracture of the right radial head. She will use a sling while she is outside of the house. No weight bearing restrictions in regard to the elbow. She may need to use the arm to stabilize herself with her walker and I told her this would be fine to do. She will be seen in 4 weeks for follow up and repeat Xray. Time Spent With Patient Time with patient: less than 15 minutes Subjective Subjective Date/Time Seen: 07/26/21 11:30 81 year old female seen today for continued care of non displaced radial head fracture. No change in patient condition from yesterday.Patient is ready to go home and begin PT and OT while she is there. Patient does have concerns about being in a sling while out of the house because she is uses a walker at all times. Review of Systems Review of Systems: All systems reviewed & are unremarkable except as noted in HPI and below Musculoskeletal: Musculoskeletal: Reports stiffness (right elbow) Integumentary/Breasts: Skin/Breast: Reports wounds (skin tears and ecchymosis proximal to right elbow) Exam Const: General: no acute distress Resp: Effort & Inspection: normal respiratory effort Extrem: Other: Exam of the right elbow demonstrates swelling and bruising to the lateral elbow, she currently has a dressing in place. ROM exam of the elbow shows full ROM throughout supination, pronation, and flexion. There is a slight decrease of 10-15 degrees in extension. Pulses are strong bilaterally. There is normal capillary refill to both extremities as well. Objective Data Vital Signs Vital Signs: Vital Signs - 24 hr 07/25/21 15:43 07/25/21 16:00 07/25/21 20:00 Temperature 98.3 F 97.2 F L Pulse Rate 67 65 76 Respiratory Rate 18 18 Blood Pressure 165/54 H 159/58 H Pulse Oximetry 99 100 07/25/21 20:30 07/25/21 20:37 07/26/21 00:00 Temperature Pulse Rate 77 66 Respiratory Rate Blood Pressure Pulse Oximetry 100 07/26/21 00:13 07/26/21 04:00 07/26/21 05:22 Temperature 97.9 F 97.5 F L Pulse Rate 70 69 77 Respiratory Rate 15 17 Blood Pressure 138/50 L 160/77 H Pulse Oximetry 98 99 07/26/21 08:00 07/26/21 08:09 07/26/21 08:14 Temperature Pulse Rate 87 92 86 Respiratory Rate 20 Blood Pressure Pulse Oximetry 92 07/26/21 12:00 Temperature Pulse Rate 64 Respiratory Rate Blood Pressure Pulse Oximetry Intake/Output Intake/Output: Intake & Output 07/23/21 07/24/21 07/25/21 07/26/21 23:59 23:59 23:59 23:59 Intake Total 980 1930 680 Balance 980 1930 680 Meds/Results Medications: Active Medications Generic Name Dose Route Start Last Admin Trade Name Freq PRN Reason Stop Dose Admin Albuterol 2.5 mg 07/25/21 08:00 07/25/21 08:14 Albuterol Sulfate Neb 2.5 Mg/0.5 Ml Inh INHALATION 2.5 mg DAILY@0800 CIARA Administration Alprazolam 0.5 mg 07/25/21 17:17 07/26/21 08:53 Alprazolam (*Crx) 0.5 Mg Tablet PO 0.5 mg Q8HR PRN Administration Anxiety Aspirin 81 mg 07/25/21 09:00 07/26/21 08:15 Aspirin 81 Mg Enteric Tablet PO 81 mg DAILY CIARA Administration Ferrous Sulfate 324 mg 07/24/21 17:00 07/26/21 08:15 Ferrous Sulfate 324 Mg Tablet PO 324 mg TIDWM CIARA Administration Fluticasone/Umeclidinium/Vilanterol 1 puff 07/25/21 08:00 07/26/21 08:09 Fluticasone/Umeclidin/Vilanter 100-62.5-25 Mcg Ellipta INHALATION 1 puff DAILY@0800 CIARA Administration Folic Acid 1 m
--- NOTE | 2021-07-26 16:28 | WPDNEURCNPN ---
Assessment and Plan Additional Plan considering her general status she will benefit from the physical therapy and occupational therapy and considering her elbow fracture involving the radial for which no surgical intervention is necessary therapy is the right approach particularly when CTA shows only 62% stenosis of the proximal left internal carotid artery she will be continued on her all other medication including aspirin and antihypertensive therapy Consult date: 07/26/21 Time Seen: 11:00 HPI: Linda Palmer is a 81 year old female admitted to the hospital for the complaints of right upper extremity weakness. Patient carries the diagnosis of longstanding history of multiple sclerosis as well as stroke with resultant right upper and right lower extremity weakness since August 2020 reportedly she awaken to urinate walk to the bathroom without difficulty walk back to the bed after sitting down on the bed she noted her right arm would not do what she wanted to it was weak and uncoordinated she awakened her grandson and EMS were called to the scene she was brought to the emergency room department she was not supposed to be candidate for tPA due to previous stroke so she was admitted to hospital for further evaluation. She has ongoing history of COPD, GERD, hypertension multiple sclerosis, restless leg syndrome, neuropathy and chronic depression. She has smoked for 30 years but is a former smoker and drinks only occasionally. Evaluation up until now documented her head and neck CTA documented 62% stenosis of proximal left internal carotid artery relative to normal distal artery lumen and bilateral mastoid effusion but no evidence of intracranial abnormality interestingly x-ray of the elbow reveal possible radial neck fracture for which CT scan was suggested he had been complaining of pain in her right elbow and the CT of the elbow documented subtle nondisplaced radial head and neck fracture routine lab studies revealed her to be anemic with creatinine of 1.30 and estimated GFR of only 39, patient has been seen by the orthopedic physician who has suggested only sling while she is outside of the home no weight-bearing restrictions in regard to the elbow she might need to use the arm to stabilize herself with her walker and she will be followed by them in 4 weeks Review of Systems Review of Systems: All systems reviewed & are unremarkable except as noted in HPI and below PMFSH Past Medical History Medical History Anemia due to chronic blood loss Atherosclerotic cerebrovascular disease Chronic depression COPD (chronic obstructive pulmonary disease) GERD (gastroesophageal reflux disease) Hypertension Hypothyroidism Injury of right elbow (07/24/21) Multiple sclerosis Neuropathy Radial head fracture (07/24/21) Restless leg syndrome Stroke Surgical History Surgical History History of right-sided carotid endarterectomy History of total right knee replacement Family History Family History Mother Breast cancer Father Diabetes mellitus Social History Social History Smoking packs per day: 1 Smoking cigarettes per day: 20.0 Years smoked: 30 Smoking pack-years: 30.00 Smoking status: Former smoker Tobacco type: cigarettes Alcohol intake: current Alcohol use details: occasional glass of wine, one every few months Substance use: never Substance use type: does not use Living arrangements: with family Occupation/Education: retired Gender identity (if verbalized by the patient): Female Spiritual care concerns: No Meds Home Medications and Allergies Home Medications Medication Instructions Recorded Confirmed Type aspirin 81 mg PO DAILY #30 tablet 09/25/20 07/24/21 Rx hydralazine 50 mg PO BID #60 t
[2021-07-26] MEDS: traZODone HCL 50 MG TABLET 150 MG PO (20:29)
[2021-07-26] MEDS: rOPINIRole HCL 1 MG TABLET 5 MG PO (20:29)
[2021-07-27] VITALS (13 sets, daily range): BP systolic 135–158; BP diastolic 44–63; PULSE 67–90; RESP 16–24; TEMP 36.1–36.8; O2SAT 93–99
[2021-07-27] MEDS: LEVOTHYROXINE SODIUM 100 MCG TABLET PO (05:19)
[2021-07-27 05:43] LABS: Hematocrit 30.9 % (37.0-47.0); Hemoglobin 9.4 g/dL (12.0-15.0); Mean Corpuscular HGB Conc 30.4 g/dl (32-36); Mean Corpuscular Hemoglobin 31.1 pg (26-34); Mean Corpuscular Volume 102.3 fl (80-100); Mean Platelet Volume 9.1 fl (7.4-10.4); Platelet Count Result 263 k/mm3 (150-375); Red Blood Count 3.02 M/mm3 (4.2-5.4); Red Cell Distribution Width 13.5 % (11.5-14.5)
[2021-07-27 06:03] LABS: Anion Gap 7 mmol/L (8-16); Blood Urea Nitrogen 25 mg/dL (7-17); Calcium 8.5 mg/dL (8.4-10.2); Carbon Dioxide 27 mmol/L (22-30); Chloride 102 mmol/L (98-107); Estimated CRCL calculation 37 ml/min; Estimated Glomerular Filt Rate 39; Glucose 128 mg/dL (65-110); Potassium 4.3 mmol/L (3.4-5.0); Sodium 136 mmol/L (137-145)
[2021-07-27] MEDS: ALPRAZolam (*CRX) 0.5 MG TABLET PO ×2 (06:54→15:15)
[2021-07-27] MEDS: FERROUS SULFATE 324 MG TABLET PO ×3 (07:56→17:41)
[2021-07-27] MEDS: LOSARTAN POTASSIUM 25 MG TABLET PO (07:57)
[2021-07-27] MEDS: polyethylene glycoL 3350 17 GM POWD.PACK PO (07:57)
[2021-07-27] MEDS: hydrALAZINE HCL 50 MG TABLET PO ×2 (07:57→17:41)
[2021-07-27] MEDS: FUROSEMIDE 20 MG TABLET PO (07:57)
[2021-07-27] MEDS: ASPIRIN 81 MG ENTERIC TABLET PO (07:57)
[2021-07-27] MEDS: METOPROLOL TARTRATE 12.5 MG TABLET PO ×2 (07:57→20:00)
[2021-07-27] MEDS: PANTOPRAZOLE 40 MG TABLET PO (07:57)
[2021-07-27] MEDS: ALBUTEROL SULFATE NEB 2.5 MG/0.5 ML INH INHALATION (08:20)
[2021-07-27] MEDS: FLUTICASONE/UMECLIDIN/VILANTER 100-62.5-25 MCG ELLIPTA 1 PUFF INHALATION (08:21)
[2021-07-27] MEDS: FOLIC ACID 1 MG TABLET PO (08:33)
[2021-07-27] MEDS: levoFLOXacin 500 MG/D5W 100 ML 500 MG/100 ML BAG 100 MG IVPB (11:24)
--- NOTE | 2021-07-27 11:53 | PM.IMPN ---
Progress Note: A&P Assessment and Plan (1) Right arm weakness: Code(s): R29.898 - Other symptoms and signs involving the musculoskeletal system Status: Acute Assessment and Plan: Differential diagnosis includes acute ischemic stroke, transient ischemic attack, and multiple sclerosis no bleeding noted on CT scanning ( of interest, and neither is an old stroke noted) no history to suggest seizure with Reji's paralysis no history to suggest cervical radiculopathy or brachial plexopathy MRI brain pending CTA carotids pending Monitor on telemetry (2) Atherosclerotic cerebrovascular disease: Code(s): I67.2 - Cerebral atherosclerosis Status: Acute Assessment and Plan: Status post right carotid endarterectomy with known atherosclerotic disease in the left carotid Results of CTA pending History of intolerance or allergy with statin therapy so will avoid at this time (3) Multiple sclerosis: Code(s): G35 - Multiple sclerosis Status: Acute Assessment and Plan: Diagnosed at age 46 with lumbar puncture and MRI (4) Neuropathy: Code(s): G62.9 - Polyneuropathy, unspecified Status: Acute Assessment and Plan: Chronic with paresthesias in the feet and fingertips (5) Elevated troponin: Code(s): R77.8 - Other specified abnormalities of plasma proteins Status: Acute (6) Anemia due to chronic blood loss: Code(s): D50.0 - Iron deficiency anemia secondary to blood loss (chronic) Status: Acute Assessment and Plan: Followed as outpatient by hematology with intermittent iron infusions and blood transfusions p.r.n. (7) Injury of right elbow: Onset Date: 07/24/21 Qualifiers: Encounter type: subsequent encounter Qualified Code(s): S59.901D - Unspecified injury of right elbow, subsequent encounter Code(s): S59.901A - Unspecified injury of right elbow, initial encounter Status: Inactive Assessment and Plan: X-ray suggest radial neck fracture CT pending (8) Hypothyroidism: Qualifiers: Hypothyroidism type: acquired Qualified Code(s): E03.9 - Hypothyroidism, unspecified Code(s): E03.9 - Hypothyroidism, unspecified Status: Acute Assessment and Plan: Continue home regimen (9) Hypertension: Qualifiers: Hypertension type: unspecified Qualified Code(s): I10 - Essential (primary) hypertension Code(s): I10 - Essential (primary) hypertension Status: Acute Assessment and Plan: Continue home regimen (10) Restless leg syndrome: Code(s): G25.81 - Restless legs syndrome Status: Acute Assessment and Plan: Discussed with patient that this may be due to a combination of iron deficiency anemia and trazodone use continue home regimen (11) COPD (chronic obstructive pulmonary disease): Qualifiers: COPD type: unspecified COPD Qualified Code(s): J44.9 - Chronic obstructive pulmonary disease, unspecified Code(s): J44.9 - Chronic obstructive pulmonary disease, unspecified Status: Acute Assessment and Plan: Clinically stable Continue home regimen (12) Chronic depression: Code(s): F32.9 - Major depressive disorder, single episode, unspecified Status: Acute Assessment and Plan: Continue trazodone at bedtime Additional Plan 07/27/21 CVA UTI and RUE nondisplaced fx levaquin renal dose adjusted, DAPT for 6 weeks w Statin (pt does not remember her allergy and is willing to try to prevent future strokes) dc to rehab when arranged x CVA w NWB restrictions to RUE MS risk for falls discussed w pt and her she understands and will be careful following fall precautions Time Spent With Patient Time with patient: Greater than 35 minutes Subjective Date/time seen: 07/27/21 11:53 MS risk for falls discussed w pt and her she understands and will be careful following fall pre
[2021-07-27] MEDS: ATORVASTATIN 20 MG TABLET PO (13:25)
[2021-07-27] MEDS: CLOPIDOGREL BISULFATE 75 MG TABLET PO (13:25)
[2021-07-27] MEDS: traZODone HCL 50 MG TABLET 150 MG PO (20:00)
[2021-07-27] MEDS: rOPINIRole HCL 1 MG TABLET 5 MG PO (20:00)
[2021-07-28] VITALS (13 sets, daily range): BP systolic 123–153; BP diastolic 48–85; PULSE 70–89; RESP 16–20; TEMP 36.5–37.1; O2SAT 96–100
[2021-07-28] MEDS: LEVOTHYROXINE SODIUM 100 MCG TABLET PO (05:30)
[2021-07-28 07:04] LABS: Mean Corpuscular Hemoglobin 31.5 pg (26-34); Mean Corpuscular Volume 104.9 fl (80-100); Mean Platelet Volume 9.7 fl (7.4-10.4); Platelet Count Result 238 k/mm3 (150-375); Red Blood Count 2.86 M/mm3 (4.2-5.4); Red Cell Distribution Width 13.6 % (11.5-14.5); White Blood Count 5.4 K/mm3 (4.5-10.0)
[2021-07-28 07:13] LABS: Anion Gap 7 mmol/L (8-16); Blood Urea Nitrogen 29 mg/dL (7-17); Calcium 8.7 mg/dL (8.4-10.2); Carbon Dioxide 28 mmol/L (22-30); Chloride 103 mmol/L (98-107); Estimated CRCL calculation 35 ml/min; Estimated Glomerular Filt Rate 36; Glucose 153 mg/dL (65-110); Potassium 4.2 mmol/L (3.4-5.0); Sodium 138 mmol/L (137-145)
[2021-07-28] MEDS: ALBUTEROL SULFATE NEB 2.5 MG/0.5 ML INH INHALATION (08:01)
[2021-07-28] MEDS: FLUTICASONE/UMECLIDIN/VILANTER 100-62.5-25 MCG ELLIPTA 1 PUFF INHALATION (08:10)
[2021-07-28] MEDS: levoFLOXacin 250 MG/D5W 50 ML 250 MG/50 ML BAG 50 MG IVPB (08:11)
[2021-07-28] MEDS: FERROUS SULFATE 324 MG TABLET PO ×3 (08:17→17:41)
[2021-07-28] MEDS: ATORVASTATIN 20 MG TABLET PO (08:17)
[2021-07-28] MEDS: ASPIRIN 81 MG ENTERIC TABLET PO (08:18)
[2021-07-28] MEDS: FOLIC ACID 1 MG TABLET PO (08:18)
[2021-07-28] MEDS: FUROSEMIDE 20 MG TABLET PO (08:18)
[2021-07-28] MEDS: CLOPIDOGREL BISULFATE 75 MG TABLET PO (08:18)
[2021-07-28] MEDS: METOPROLOL TARTRATE 12.5 MG TABLET PO ×2 (08:18→21:44)
[2021-07-28] MEDS: PANTOPRAZOLE 40 MG TABLET PO (08:19)
[2021-07-28] MEDS: LOSARTAN POTASSIUM 25 MG TABLET PO (08:19)
[2021-07-28] MEDS: hydrALAZINE HCL 50 MG TABLET PO ×2 (08:19→17:40)
[2021-07-28] MEDS: polyethylene glycoL 3350 17 GM POWD.PACK PO (08:22)
[2021-07-28] MEDS: ALPRAZolam (*CRX) 0.5 MG TABLET PO ×2 (10:07→21:43)
--- NOTE | 2021-07-28 11:02 | PM.IMPN ---
Progress Note: A&P Assessment and Plan (1) Right arm weakness: Code(s): R29.898 - Other symptoms and signs involving the musculoskeletal system Status: Acute Assessment and Plan: Differential diagnosis includes acute ischemic stroke, transient ischemic attack, and multiple sclerosis no bleeding noted on CT scanning ( of interest, and neither is an old stroke noted) no history to suggest seizure with Reji's paralysis no history to suggest cervical radiculopathy or brachial plexopathy MRI brain pending CTA carotids pending Monitor on telemetry (2) Atherosclerotic cerebrovascular disease: Code(s): I67.2 - Cerebral atherosclerosis Status: Acute Assessment and Plan: Status post right carotid endarterectomy with known atherosclerotic disease in the left carotid Results of CTA pending History of intolerance or allergy with statin therapy so will avoid at this time (3) Multiple sclerosis: Code(s): G35 - Multiple sclerosis Status: Acute Assessment and Plan: Diagnosed at age 46 with lumbar puncture and MRI (4) Neuropathy: Code(s): G62.9 - Polyneuropathy, unspecified Status: Acute Assessment and Plan: Chronic with paresthesias in the feet and fingertips (5) Elevated troponin: Code(s): R77.8 - Other specified abnormalities of plasma proteins Status: Acute (6) Anemia due to chronic blood loss: Code(s): D50.0 - Iron deficiency anemia secondary to blood loss (chronic) Status: Acute Assessment and Plan: Followed as outpatient by hematology with intermittent iron infusions and blood transfusions p.r.n. (7) Injury of right elbow: Onset Date: 07/24/21 Qualifiers: Encounter type: subsequent encounter Qualified Code(s): S59.901D - Unspecified injury of right elbow, subsequent encounter Code(s): S59.901A - Unspecified injury of right elbow, initial encounter Status: Inactive Assessment and Plan: X-ray suggest radial neck fracture CT pending (8) Hypothyroidism: Qualifiers: Hypothyroidism type: acquired Qualified Code(s): E03.9 - Hypothyroidism, unspecified Code(s): E03.9 - Hypothyroidism, unspecified Status: Acute Assessment and Plan: Continue home regimen (9) Hypertension: Qualifiers: Hypertension type: unspecified Qualified Code(s): I10 - Essential (primary) hypertension Code(s): I10 - Essential (primary) hypertension Status: Acute Assessment and Plan: Continue home regimen (10) Restless leg syndrome: Code(s): G25.81 - Restless legs syndrome Status: Acute Assessment and Plan: Discussed with patient that this may be due to a combination of iron deficiency anemia and trazodone use continue home regimen (11) COPD (chronic obstructive pulmonary disease): Qualifiers: COPD type: unspecified COPD Qualified Code(s): J44.9 - Chronic obstructive pulmonary disease, unspecified Code(s): J44.9 - Chronic obstructive pulmonary disease, unspecified Status: Acute Assessment and Plan: Clinically stable Continue home regimen (12) Chronic depression: Code(s): F32.9 - Major depressive disorder, single episode, unspecified Status: Acute Assessment and Plan: Continue trazodone at bedtime (13) Hypertriglyceridemia: Code(s): E78.1 - Pure hyperglyceridemia Status: Acute (14) Megaloblastic anemia: Code(s): D53.1 - Other megaloblastic anemias, not elsewhere classified Status: Acute Additional Plan 07/27/21 CVA UTI and RUE nondisplaced fx levaquin renal dose adjusted, DAPT for 6 weeks w Statin (pt does not remember her allergy and is willing to try to prevent future strokes) dc to rehab when arranged x CVA w NWB restrictions to RUE MS risk for falls discussed w pt and her she understands and will be careful following fall
--- NOTE | 2021-07-28 14:21 | PCOTNOTE ---
Attempted to see patient twice this date. First attempt, patient was just getting lunch tray to eat. Second attempt, patient was back in bed sleeping soundly.
[2021-07-28 20:07] LABS: Folic Acid > 20.0 ng/mL (2.76->20)
[2021-07-28] MEDS: traZODone HCL 50 MG TABLET 150 MG PO (21:43)
[2021-07-28] MEDS: rOPINIRole HCL 1 MG TABLET 5 MG PO (21:44)
[2021-07-29] VITALS (11 sets, daily range): BP systolic 116–149; BP diastolic 40–77; PULSE 64–88; RESP 16–20; TEMP 36.6–36.7; O2SAT 96–100
[2021-07-29 05:58] LABS: Hematocrit 28.6 % (37.0-47.0); Hemoglobin 8.7 g/dL (12.0-15.0); Mean Corpuscular HGB Conc 30.4 g/dl (32-36); Mean Corpuscular Hemoglobin 31.6 pg (26-34); Mean Platelet Volume 9.3 fl (7.4-10.4); Platelet Count Result 241 k/mm3 (150-375); Red Blood Count 2.75 M/mm3 (4.2-5.4); Red Cell Distribution Width 13.8 % (11.5-14.5); White Blood Count 5.3 K/mm3 (4.5-10.0)
[2021-07-29 06:13] LABS: Anion Gap 5 mmol/L (8-16); Blood Urea Nitrogen 34 mg/dL (7-17); Calcium 8.7 mg/dL (8.4-10.2); Carbon Dioxide 28 mmol/L (22-30); Chloride 105 mmol/L (98-107); Estimated CRCL calculation 35 ml/min; Estimated Glomerular Filt Rate 36; Glucose 149 mg/dL (65-110); Potassium 4.2 mmol/L (3.4-5.0); Sodium 138 mmol/L (137-145)
[2021-07-29] MEDS: LEVOTHYROXINE SODIUM 100 MCG TABLET PO (06:28)
[2021-07-29] MEDS: ALBUTEROL SULFATE NEB 2.5 MG/0.5 ML INH INHALATION (07:24)
[2021-07-29] MEDS: FLUTICASONE/UMECLIDIN/VILANTER 100-62.5-25 MCG ELLIPTA 1 PUFF INHALATION (07:24)
[2021-07-29] MEDS: ATORVASTATIN 20 MG TABLET PO (10:11)
[2021-07-29] MEDS: CLOPIDOGREL BISULFATE 75 MG TABLET PO (10:11)
[2021-07-29] MEDS: CYANOCOBALAMIN 1,000 MCG TABLET 1000 MCG PO (10:11)
[2021-07-29] MEDS: hydrALAZINE HCL 50 MG TABLET PO ×2 (10:11→18:52)
[2021-07-29] MEDS: ASPIRIN 81 MG ENTERIC TABLET PO (10:11)
[2021-07-29] MEDS: FERROUS SULFATE 324 MG TABLET PO ×3 (10:11→18:52)
[2021-07-29] MEDS: LOSARTAN POTASSIUM 25 MG TABLET PO (10:12)
[2021-07-29] MEDS: polyethylene glycoL 3350 17 GM POWD.PACK PO (10:12)
[2021-07-29] MEDS: PANTOPRAZOLE 40 MG TABLET PO (10:12)
[2021-07-29] MEDS: FOLIC ACID 1 MG TABLET PO (10:12)
[2021-07-29] MEDS: METOPROLOL TARTRATE 12.5 MG TABLET PO (10:12)
[2021-07-29] MEDS: FUROSEMIDE 20 MG TABLET PO (10:12)
[2021-07-29] MEDS: levoFLOXacin 250 MG/D5W 50 ML 250 MG/50 ML BAG 50 MG IVPB (10:12)
--- NOTE | 2021-07-29 11:03 | PM.DS ---
DS: Admitting Diagnosis Discharge Date 07/29/21 Admitting Diagnosis (1) Right arm weakness: Code(s): R29.898 - Other symptoms and signs involving the musculoskeletal system Status: Acute Assessment and Plan: differential diagnosis includes acute ischemic stroke, transient ischemic attack, and multiple sclerosis no bleeding noted on CT scanning ( of interest, and neither is an old stroke noted) no history to suggest seizure with Reji's paralysis no history to suggest cervical radiculopathy or brachial plexopathy MRI brain pending CTA carotids pending monitor on telemetry if stroke present consider addition of clopidogrel again for a 6-8 weeks pending results of carotid CTA she may be a candidate for surgical intervention (2) Atherosclerotic cerebrovascular disease: Code(s): I67.2 - Cerebral atherosclerosis Status: Acute Assessment and Plan: status post right carotid endarterectomy with known atherosclerotic disease in the left carotid results of CTA pending history of intolerance or allergy with statin therapy so will avoid at this time (3) Multiple sclerosis: Code(s): G35 - Multiple sclerosis Status: Acute Assessment and Plan: diagnosed at age 46 with lumbar puncture and MRI (4) Neuropathy: Code(s): G62.9 - Polyneuropathy, unspecified Status: Acute Assessment and Plan: chronic with paresthesias in the feet and fingertips (5) Elevated troponin: Code(s): R77.8 - Other specified abnormalities of plasma proteins Status: Acute (6) Anemia due to chronic blood loss: Code(s): D50.0 - Iron deficiency anemia secondary to blood loss (chronic) Status: Acute Assessment and Plan: followed as outpatient by hematology with intermittent iron infusions and blood transfusions p.r.n. (7) Injury of right elbow: Qualifiers: Encounter type: subsequent encounter Qualified Code(s): S59.901D - Unspecified injury of right elbow, subsequent encounter Code(s): S59.901A - Unspecified injury of right elbow, initial encounter Status: Acute Assessment and Plan: x-ray suggest radial neck fracture CT pending (8) Hypothyroidism: Qualifiers: Hypothyroidism type: acquired Qualified Code(s): E03.9 - Hypothyroidism, unspecified Code(s): E03.9 - Hypothyroidism, unspecified Status: Acute Assessment and Plan: continue home regimen (9) Hypertension: Qualifiers: Hypertension type: unspecified Qualified Code(s): I10 - Essential (primary) hypertension Code(s): I10 - Essential (primary) hypertension Status: Acute Assessment and Plan: continue home regimen (10) Restless leg syndrome: Code(s): G25.81 - Restless legs syndrome Status: Acute Assessment and Plan: discussed with patient that this may be due to a combination of iron deficiency anemia and trazodone use continue home regimen (11) COPD (chronic obstructive pulmonary disease): Qualifiers: COPD type: unspecified COPD Qualified Code(s): J44.9 - Chronic obstructive pulmonary disease, unspecified Code(s): J44.9 - Chronic obstructive pulmonary disease, unspecified Status: Acute Assessment and Plan: clinically stable continue home regimen (12) Chronic depression: Code(s): F32.9 - Major depressive disorder, single episode, unspecified Status: Acute Assessment and Plan: continue trazodone at bedtime DS: Discharge Diagnosis Discharge Diagnosis (1) Megaloblastic anemia: Code(s): D53.1 - Other megaloblastic anemias, not elsewhere classified Status: Acute (2) Radial head fracture: Onset Date: 07/24/21 Qualifiers: Encounter type: initial encounter Fracture type: closed Fracture alignment: nondisplaced Laterality: right Qualified Code(s): S52.124A - Nondisplaced fracture of head of right radi
[2021-07-29] MEDS: PHENAZOPYRIDINE HCL 100 MG TABLET PO (12:09)
[2021-07-29 12:49] LABS: EDCOVIDSCREEN Negative (Negative)
[2021-07-29] MEDS: ALPRAZolam (*CRX) 0.5 MG TABLET PO (13:45)
== END 2021-07-29 18:59 | DRG 66 ==
LOC: ANHED 06:06 → ANH3MED 07-25 06:41 → ANHIMU 08-02 15:29
PROVIDERS: Family Medicine; Internal Medicine; Admitting Provider Internal Medicine; Emergency Provider Emergency Medicine; PCP Family Medicine; Visit Provider Hospitalist
DX: I63.9 Cerebral infarction, unspecified (principal); R29.898 Other symptoms and signs involving the musculoskeletal system; R29.708 NIHSS score 8; Z20.822 Contact with and (suspected) exposure to COVID-19; I67.2 Cerebral atherosclerosis; G35 Multiple sclerosis; G62.9 Polyneuropathy, unspecified; D53.1 Other megaloblastic anemias, not elsewhere classified; D50.0 Iron deficiency anemia secondary to blood loss (chronic); E78.1 Pure hyperglyceridemia; R77.8 Other specified abnormalities of plasma proteins; S52.124A Nondisplaced fracture of head of right radius, initial encounter for closed fracture; W22.8XXA Striking against or struck by other objects, initial encounter; J44.9 Chronic obstructive pulmonary disease, unspecified; K21.9 Gastro-esophageal reflux disease without esophagitis; I10 Essential (primary) hypertension; E03.9 Hypothyroidism, unspecified; G25.81 Restless legs syndrome; F32.9 Major depressive disorder, single episode, unspecified; Z96.651 Presence of right artificial knee joint; Z79.82 Long term (current) use of aspirin; Z79.899 Other long term (current) drug therapy; Z86.73 Personal history of transient ischemic attack (TIA), and cerebral infarction without residual deficits; Z87.891 Personal history of nicotine dependence; Z91.81 History of falling; Z98.890 Other specified postprocedural states
CPT/HCPCS: 36415; 70496; 70498; 70551; 71045; 73080; 73200; 80048; 80053; 80061; 81001; 82607; 82746; 82948; 83540; 83550; 83605; 83735; 84484; 85025; 85027; 85046; 85610; 85730; 87077; 87086; 87088; 87186; 87426; 93005; 94640; 97110; 97161; 97165; 97530; 97535; 99285; A4565; A9270; C9803; J0131; J1956; Q9967

== ENCOUNTER 2021-08-03 11:37 | Observation (INO) | payer MEDICARE, MEDICAID, SELFPAY ==
[2021-08-03] VITALS (18 sets, daily range): BP systolic 116–165; BP diastolic 40–77; PULSE 73–95; RESP 15–30; TEMP 36.7–37.1; O2SAT 97–100; BMI 34.3
--- NOTE | ~2021-08-03 | XR_ITS ---
EXAMINATION: XR small bowel follow through EXAM DATE: 08/04/2021 14:45 INDICATION: Anemia, occult blood in stool. TECHNIQUE: Paper Sample Clerk radiograph was acquired. Barium was administered for small bowel exam performed by radiologist Quirino Pittman M.D.. Spot images of the terminal ileum were acquired. Pulsed dose reductio n fluoroscopy was used with fluoroscopic time of 0.1. The DAP for this procedure was 43 Gycm2. A to tiffany of 25 images obtained for the exam. There is no prior study for comparison. FINDINGS: Ileal and jejunal fold patterns are normal. There is no small bowel wall thickening or m ass effect displacing small bowel. There are no intraluminal filling defects identified. There is n o small bowel dilation. Terminal ileum is normal in appearance. Contrast reached the colon on the 1 hour 45 minute image. IMPRESSION: Unremarkable small bowel exam. Reviewed, dictated and finalized at location A.
--- NOTE | ~2021-08-03 | XR_ITS ---
EXAMINATION: XR chest 1V portable DATE: 08/05/2021 09:13 INDICATION: Shortness of breath and cough TECHNIQUE: frontal view of the chest was obtained. COMPARISON: Chest radiograph dated 07/24/2021 FINDINGS: Mild increased interstitial pattern and bronchial wall thickening in the bilateral lower lung zones. Very small calcified nodules at the right lower lung zone consistent with old granulomatous disease. Hazy opacity at the right costophrenic angle suspicious for small pleural effusion. No pneumothorax. The cardiomediastinal silhouette is normal. 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 IMPRESSION: 1. Mild interstitial opacities and bronchial wall thickening in the bilateral lower lung zones which could represent mild pulmonary edema or bronchitis. 2. Possible small right pleural effusion. Reviewed, dictated and finalized at location A. IMPRESSION: 1. Mild interstitial opacities and bronchial wall thickening in the bilateral l ower lung zones which could represent mild pulmonary edema or bronchitis. 2. Possible small right pleural effusion.
--- NOTE | ~2021-08-03 | CT_ITS ---
EXAMINATION: CT brain wo con INDICATION: Altered mental status COMPARISON: CT, 07/24/2021 and MRI 07/25/2021 TECHNIQUE: Standard unenhanced head CT. The dose-length product (DLP) was 681.00 mGy-cm. The mA was a djusted according to patient size. Iterative reconstruction technique was employed. FINDINGS: There is no acute intraparenchymal hemorrhage. No evidence of mass lesion. No evidence of a cute infarction. The punctate left-sided infarctions described on the MRI examination are not well de monstrated. There is bixh-xg-sfkhndgm periventricular and subcortical hypodensity probably related to small vessel ischemic disease. There is mild prominence of the sulci and ventricles related to cereb ral atrophy. Intracranial calcified cerebral atherosclerosis is noted. There are no extra-axial colle ctions. There is no mass effect or midline shift. Changes in the globes are likely from ocular lens s urgery. There is a polyp or mucous retention cyst of left maxillary sinus. IMPRESSION: 1. No acute intracranial abnormality. 2. Age related findings. Reviewed, dictated and finalized at location A.
--- NOTE | 2021-08-03 11:59 | ED.GIBLEED ---
HPI - GI Bleed General Chief complaint: GI Bleed Stated complaint: GI bleed, weakness Time Seen by Provider: 08/03/21 11:47 Source: RN notes reviewed History of Present Illness HPI Narrative: Patient presents to emergency department [facility] for anemia. Per staff at the facility the patient's hemoglobin has gone down from 7.9-6.4 today patient does have a history of having GI bleed and is currently on Plavix for history of a recent stroke as well as aspirin. Patient denies any fevers or chills abdominal pain nausea vomiting or other symptoms denies any noted blood in her stool Related Data Home Medications Medication Instructions Recorded Confirmed Trelegy Ellipta 1 inh INHALATION DAILY 07/24/21 07/29/21 albuterol sulfate 2.5 mg INHALATION DAILY 07/24/21 07/29/21 ferrous sulfate 325 mg PO TID 07/24/21 07/29/21 furosemide 20 mg PO DAILY 07/24/21 07/29/21 losartan 25 mg PO DAILY 07/24/21 07/29/21 meclizine 12.5 mg PO TID 07/24/21 07/29/21 pantoprazole 40 mg PO DAILY 07/24/21 07/29/21 trazodone 150 mg PO HS 07/24/21 07/29/21 Allergies Allergy/AdvReac Type Severity Reaction Status Date / Time adenosine Allergy Severe Unknown Verified 07/24/21 05:19 cephalexin Allergy Severe Unknown Verified 07/24/21 05:19 Penicillins Allergy Severe Unknown Verified 07/24/21 05:19 Wygxgin-Far-Ywm Reductase Allergy Unknown Unknown Verified 07/24/21 05:19 Inhibitor Review of Systems Review of Systems: Gen.: Denies fevers or chills ENT: Denies congestion Respiratory: Denies shortness of breath or cough CV: Denies chest pain or palpitations GI: Denies abdominal pain nausea, emesis or diarrhea Musculoskeletal: Denies back pain or muscle pain Neuro: Denies numbness, tingling, weakness or focal weakness Skin: Denies rash Except as documented, all other systems reviewed and negative [facility] Past Medical History Medical History Anemia due to chronic blood loss Atherosclerotic cerebrovascular disease Chronic depression COPD (chronic obstructive pulmonary disease) GERD (gastroesophageal reflux disease) Hypertension Hypothyroidism Injury of right elbow (07/24/21) Multiple sclerosis Neuropathy Radial head fracture (07/24/21) Restless leg syndrome Stroke Surgical History Surgical History History of right-sided carotid endarterectomy History of total right knee replacement Family History Family History Mother Breast cancer Father Diabetes mellitus Social History Social History Social History: Patient lives with son and [id number] in a single-story home with a few steps to enter. Patient has a transport wheelchair, cane, and walker. Smoking packs per day: 1 Smoking cigarettes per day: 20.0 Years smoked: 30 Smoking pack-years: 30.00 Smoking status: Former smoker Tobacco type: cigarettes Second hand tobacco smoke exposure: Yes Alcohol intake: current Alcohol use details: occasional glass of wine, one every few months Substance use: never Substance use type: does not use Gender identity (if verbalized by the patient): Female Spiritual care concerns: No Exam Narrative: APPEARANCE: No acute distress, nontoxic, resting in bed EYES: EOMI HEENT: Normocephalic, atraumatic, OMM RESPIRATORY: No respiratory distress Clear to auscultation bilaterally with no rhonchi wheezing or rales. CARDIOVASCULAR: Regular rate and rhythm without murmurs rubs or gallops. ABDOMINAL: Soft, nontender, nondistended, no rebound or guarding Rectal: No hemorrhoids or fissures, black stool that is Hemoccult positive MUSCULOSKELETAl:No clubbing, cyanosis or edema. NEURO: Awake and alert. Following commands, speech normal, SKIN:: Warm, dry. No rashes lesions or abrasions PSYCHIATRI
[2021-08-03 12:37] LABS: Basophils Absolute Auto 0.1 K/mm3 (0.0-0.1); Basophils Percent Auto 0.7 % (0.2-1.2); Eosinophils Absolute Auto 0.2 K/mm3 (0-0.3); Eosinophils Percent Auto 2.5 % (0-4.4); Hematocrit 25.2 % (37.0-47.0); Hemoglobin 7.5 g/dL (12.0-15.0); Immature Granulocyte Absolute 0.07 K/mm3 (0.00-0.031); Lymphocytes Absolute Auto 0.92 K/mm3 (0.9-3.2); Lymphocytes Percent Auto 12.7 % (18.3-44.2); Mean Corpuscular HGB Conc 29.8 g/dl (32-36); Mean Corpuscular Hemoglobin 32.2 pg (26-34); Mean Corpuscular Volume 108.2 fl (80-100); Mean Platelet Volume 9.7 fl (7.4-10.4); Monocytes Absolute Auto 0.4 K/mm3 (0.1-0.6); Monocytes Percent Auto 5.7 % (2.6-8.5); Neutrophils Absolute Auto 5.6 K/mm3 (1.3-6.7); Neutrophils Percent Auto 77.4 % (45.5-73.1); Nucleated Red Blood Cells Perc 0.3 % (0.0-0.2); Platelet Count Result 221 k/mm3 (150-375); Red Blood Count 2.33 M/mm3 (4.2-5.4); Red Cell Distribution Width 15.4 % (11.5-14.5); White Blood Count 7.2 K/mm3 (4.5-10.0)
[2021-08-03 12:42] LABS: Add Urine Microscopic? YES; Appearance Urine Clear (Clear); Bilirubin Urine Negative (Negative); Blood Urine Negative (Negative); Color Urine Straw (Yellow); Glucose Urine UA Negative (Negative); Ketones Urine Negative (Negative); Leukocyte Esterase Ur Trace LEU/UL (Negative); Nitrate Urine Negative (Negative); Protein Urine Negative (Negative); RBC Urine 0-2 /hpf (0-2); Specific Grav Ur 1.013 (1.001-1.035); Squamous Epithelial Cell Urine Rare /hpf (Few); Urobilinogen Urine Negative mg/dL (<2.0)
[2021-08-03 12:45] LABS: Alanine Aminotransferase 18 U/L (4-35); Albumin Level 4.1 g/dL (3.5-5.1); Alkaline Phosphatase 54 U/L (38-126); Anion Gap 6 mmol/L (8-16); Aspartate Amino Transferase 24 U/L (14-36); Bilirubin,Total < 0.1 mg/dL (0.2-1.3); Blood Urea Nitrogen 49 mg/dL (7-17); Calcium 9.3 mg/dL (8.4-10.2); Carbon Dioxide 29 mmol/L (22-30); Chloride 104 mmol/L (98-107); Estimated CRCL calculation 33 ml/min; Estimated Glomerular Filt Rate 33; Glucose 151 mg/dL (65-110); Potassium 4.5 mmol/L (3.4-5.0); Sodium 139 mmol/L (137-145)
[2021-08-03 12:50] LABS: INR 0.9
[2021-08-03 12:53] LABS: Partial Thromboplastin Time 23.1 SECONDS (22.3-36.8)
[2021-08-03 13:11] LABS: Anisocytosis 1+ (NORMAL); Hypochromasia 1+ (NORMAL); Platelet Estimate Adequate (Adequate)
--- NOTE | 2021-08-03 16:50 | ADMGEN ---
This patient, Linda Palmer, was admitted to Medical Room 249-01. Patient/family oriented to hospital policies and general routines including ID bracelet, bed and alarms, visiting hours, pain management, procedures, bathroom and other care routines, personal items, smoking policy, room service/diet, and visiting hours. Information on how to activate the Rapid Response Team has been discussed. Patient/Family are encouraged to report perceived risks to care and to ask questions if they do not understand what they are told or what they should do.
--- NOTE | 2021-08-03 16:58 | PM.IMHP ---
H&P: HPI History of Present Illness Date/Time: 08/03/21 16:58 THIS IS A 81-YEAR-OLD FEMALE PATIENT WHO HAS HAD A PAST MEDICAL of having CVA x3. The patient had been on an anticoagulant in the past but now she is only on aspirin and Plavix. Patient was taken off of anticoagulation in the past due to gastric ulcer. However patient recently had a CVA and is currently in the [facility] rehab facility. The patient was brought to the emergency room today because of anemia. Her hemoglobin was noted to be 6.4 which was a drop 7.9. She has had a history of having a gastric ulcer and GI bleed in the past. Patient denies any fever chills. The patient has not noted any bright red blood in her stool. GI has been consulted. She has seen Dr. ross. The patient's H&H today is 7.5 in 25.2. The lab draw from earlier today at outside facility was 6.4 and 21.7. On the 24/04 it was noted to be 7.9 and 26.0. Patient did not notice any obvious blood but however she was found to be positive for occult blood upon examination per ED physician. The patient chronically wears oxygen at 2 L per nasal cannula due to her emphysema. The patient stated that she is always short of breath and is not any more short of breath than normal. Dr. ross saw the patient and anticipates and colonoscopy an EGD in the morning. The patient has had a history of having colon polyps in the past as well. She has also had a gastric ulcer in 2018. Patient's creatinine is 1.5 today with BUN of 49. This is her baseline. The patient is being admitted for observation on the date of service of 08/03/2021 Chief Complaint: Abnormal lab Review of Systems Review of Systems: All systems reviewed & are unremarkable except as noted in HPI and below Constitutional: Constitutional: Reports as per HPI and Reports no additional constitutional complaints Eyes: Eyes: Reports as per HPI and Reports no additional eye complaints ENT: Reports system reviewed and no additional complaints, except as documented and Reports Normal hearing present Cardiovascular: Cardiovascular: Reports no additional cardiovascular complaints Respiratory: Respiratory: Reports no additional respiratory complaints and Reports no additional respiratory complaints Gastrointestinal: Gastrointestinal: Reports as per HPI and Reports no additional gastrointestinal complaints Musculoskeletal: Musculoskeletal: Reports no additional musculoskeletal complaints Integumentary/Breasts: Skin/Breast: Reports system reviewed and no additional complaints, except as docu and Reports as per HPI Neurologic: Reports system reviewed and no additional complaints, except as documented, Reports as per HPI and Reports Normal hearing present Psychiatric: Psychiatric: Reports no additional psychiatric complaints and Reports as per HPI Endocrine: Endocrine: Reports no additional endocrine complaints Hematologic/Lymphatic: Hematologic/Lymphatic: Reports no additional hematologic/lymphatic complaints Allergic/Immunologic: Allergic/Immunologic: Reports no additional allergic/immunologic complaints [facility] Past Medical History Medical History (Updated 08/03/21 @ 17:17 by Ximena Roque NP) Anemia due to chronic blood loss Atherosclerotic cerebrovascular disease Chronic depression COPD (chronic obstructive pulmonary disease) GERD (gastroesophageal reflux disease) Hypertension Hypothyroidism Injury of right elbow (07/24/21) Multiple sclerosis Neuropathy Radial head fracture (07/24/21) Restless leg syndrome Stroke X3 with some residual to some weakness to right upper extremity and right lower extremity. The patient stated that she does track her like some on the right side Surgical History Surgical History (Updated 08/03/21 @ 17:06 by Ximena Roque NP) H/O colonoscopy with polypectomy H/O thyroidectomy History of back surgery X2 History of right-sided carotid endarterectomy History of total right knee replacement Hx of cholec
[2021-08-03] MEDS: PEG (High)/E-LYTE SOLN 4,000 ML BTL 4000 ML PO (18:01)
[2021-08-03] MEDS: SODIUM CHLORIDE 0.9% IV 1,000 ML 100 ML IV CONT (18:02)
[2021-08-03 18:42] LABS: Hematocrit 22.7 % (37.0-47.0)
[2021-08-03 18:51] LABS: Hemoglobin 6.9 g/dL (12.0-15.0)
[2021-08-03] MEDS: SODIUM CHLORIDE 0.9% IV 250 ML 30 ML IV CONT (21:59)
--- NOTE | 2021-08-03 22:05 | PC.NURSE ---
Blood product expiration date would not scan, told by Jeremiah in blood bank to override to start. expiration 08-25-21.
[2021-08-03] MEDS: rOPINIRole HCL 1 MG TABLET 5 MG PO (23:06)
[2021-08-03] MEDS: METOPROLOL TARTRATE 12.5 MG TABLET PO (23:07)
[2021-08-03] MEDS: traZODone HCL 50 MG TABLET 150 MG PO (23:07)
[2021-08-03] MEDS: ALPRAZolam (*CRX) 0.5 MG TABLET PO (23:08)
[2021-08-03] MEDS: PANTOPRAZOLE SODIUM IV 40 MG VIAL IV PUSH (23:11)
[2021-08-04] VITALS (26 sets, daily range): BP systolic 120–165; BP diastolic 44–82; PULSE 70–102; RESP 16–27; TEMP 36.6–37.2; O2SAT 93–100
[2021-08-04 05:43] LABS: Basophils Absolute Auto 0.1 K/mm3 (0.0-0.1); Basophils Percent Auto 0.9 % (0.2-1.2); Eosinophils Absolute Auto 0.2 K/mm3 (0-0.3); Eosinophils Percent Auto 4.6 % (0-4.4); Immature Granulocyte Absolute 0.04 K/mm3 (0.00-0.031); Immature Granulocyte Percent A 0.8 % (0-0.5); Lymphocytes Absolute Auto 1.06 K/mm3 (0.9-3.2); Lymphocytes Percent Auto 20.1 % (18.3-44.2); Mean Corpuscular Volume 103.4 fl (80-100); Mean Platelet Volume 9.4 fl (7.4-10.4); Monocytes Absolute Auto 0.5 K/mm3 (0.1-0.6); Monocytes Percent Auto 9.1 % (2.6-8.5); Neutrophils Absolute Auto 3.4 K/mm3 (1.3-6.7); Neutrophils Percent Auto 64.5 % (45.5-73.1); Platelet Count Result 186 k/mm3 (150-375); Red Cell Distribution Width 16.6 % (11.5-14.5); White Blood Count 5.3 K/mm3 (4.5-10.0)
[2021-08-04] MEDS: LEVOTHYROXINE SODIUM 100 MCG TABLET PO (05:53)
[2021-08-04 06:00] LABS: Alanine Aminotransferase 17 U/L (4-35); Albumin Level 3.2 g/dL (3.5-5.1); Alkaline Phosphatase 42 U/L (38-126); Anion Gap 8 mmol/L (8-16); Aspartate Amino Transferase 23 U/L (14-36); Bilirubin,Total 0.5 mg/dL (0.2-1.3); Blood Urea Nitrogen 39 mg/dL (7-17); Calcium 8.3 mg/dL (8.4-10.2); Carbon Dioxide 29 mmol/L (22-30); Chloride 103 mmol/L (98-107); Estimated CRCL calculation 40 ml/min; Estimated Glomerular Filt Rate 43; Glucose 137 mg/dL (65-110); Magnesium 2.2 mg/dL (1.6-2.3); Potassium 3.6 mmol/L (3.4-5.0); Sodium 140 mmol/L (137-145)
[2021-08-04 08:30] LABS: Free T4 Free Thyroxine Reflex 0.91 ng/dL (0.78-2.19)
[2021-08-04] MEDS: ALBUTEROL SULFATE NEB 2.5 MG/0.5 ML INH INHALATION (08:52)
[2021-08-04] MEDS: FLUTICASONE/UMECLIDIN/VILANTER 100-62.5-25 MCG ELLIPTA 1 PUFF INHALATION (08:52)
[2021-08-04] MEDS: METOPROLOL TARTRATE 12.5 MG TABLET PO ×2 (09:11→23:44)
--- NOTE | 2021-08-04 09:26 | PC.NURSE ---
To GI lab via stretcher with GI lab staff.
[2021-08-04 10:02] LABS: Total Triiodothyronine (T3) 1.04 NG/ML (0.97-1.69)
--- NOTE | 2021-08-04 10:28 | WPDANESEPPF ---
Anes - Initial Pre Proc Eval Procedure: Operation Date: 08/04/21 10:30 Proposed Procedures p Esophagogastroduodenoscopy & Colonoscopy - Krishna Lackey MD Date/Time: 08/04/21 10:28 Surgeon: Gretchen Bourgeois PA-C Pre Op Diagnosis: gi bleed,anemia Patient Data Age: 81 Gender: F Height: 1.74 m Weight: 104 kg Last Vital Signs Temp 98.7 F 08/04/21 09:45 Pulse 82 08/04/21 09:45 Resp 22 H 08/04/21 09:45 BP 160/47 H 08/04/21 09:45 Pulse Ox 98 08/04/21 09:45 Allergies Allergy/AdvReac Type Severity Reaction Status Date / Time adenosine Allergy Severe Unknown Verified 08/04/21 09:29 cephalexin Allergy Severe Unknown Verified 08/04/21 09:29 Penicillins Allergy Severe Unknown Verified 08/04/21 09:29 Laqagea-Oau-Fop Reductase Allergy Unknown Unknown Verified 08/04/21 09:29 Inhibitor Home Medications Medication Instructions Recorded Confirmed Type aspirin 81 mg PO DAILY #30 tablet 09/25/20 08/03/21 Rx hydralazine 50 mg PO BID #60 tablet 09/25/20 08/03/21 Rx levothyroxine [Synthroid] 100 mcg PO DAILY #30 tablet 09/25/20 08/03/21 Rx metoprolol tartrate 12.5 mg PO BID #60 tablet 09/25/20 08/03/21 Rx polyethylene glycol 3350 [Miralax] 17 g PO QAM #30 ea 09/25/20 08/03/21 Rx ropinirole [Requip] 5 mg PO HS #30 tablet 09/25/20 08/03/21 Rx tramadol 50 mg PO Q8H PRN #50 tablet 09/25/20 08/03/21 Rx Trelegy Ellipta 1 inh INHALATION DAILY 07/24/21 08/03/21 History albuterol sulfate 2.5 mg INHALATION DAILY 07/24/21 08/03/21 History ferrous sulfate 325 mg PO TID 07/24/21 08/03/21 History furosemide 20 mg PO DAILY 07/24/21 08/03/21 History losartan 25 mg PO DAILY 07/24/21 08/03/21 History meclizine 12.5 mg PO TID 07/24/21 08/03/21 History pantoprazole 40 mg PO DAILY 07/24/21 08/03/21 History trazodone 150 mg PO HS 07/24/21 08/03/21 History alprazolam 0.5 mg PO BID PRN 5 Days tablet 07/29/21 08/03/21 Rx atorvastatin 20 mg PO DAILY #30 tablet 07/29/21 08/03/21 Rx clopidogrel 75 mg PO QAM 30 Days #30 tablet 07/29/21 08/03/21 Rx cyanocobalamin (vitamin B-12) 1,000 mcg PO QAM 15 Days #15 tablet 07/29/21 08/03/21 Rx [Vitamin B-12] levofloxacin 250 mg PO DAILY #3 tablet 07/29/21 08/03/21 Rx Laboratory Tests 08/03/21 08/03/21 08/03/21 12:20 12:28 12:28 WBC 7.2 K/mm3 K/mm3 (4.5-10.0) RBC 2.33 M/mm3 L M/mm3 (4.2-5.4) Hgb 7.5 g/dL L g/dL (12.0-15.0) Hct 25.2 % L % (37.0-47.0) MCV 108.2 fl H fl (80-100) MCH 32.2 pg pg (26-34) MCHC 29.8 g/dl L g/dl (32-36) RDW 15.4 % H % (11.5-14.5) Plt Count 221 k/mm3 k/mm3 (150-375) MPV 9.7 fl fl (7.4-10.4) Immature Gran % (Auto) 1.0 % H % (0-0.5) Neut % (Auto) 77.4 % H % (45.5-73.1) Lymph % (Auto) 12.7 % L % (18.3-44.2) Gooding % (Auto) 5.7 % % (2.6-8.5) Eos % (Auto) 2.5 % % (0-4.4) Baso % (Auto) 0.7 % % (0.2-1.2) Lymph # (Auto) 0.92 K/mm3 K/mm3 (0.9-3.2) Gooding # (Auto) 0.4 K/mm3 K/mm3 (0.1-0.6) Eos # (Auto) 0.2 K/mm3 K/mm3 (0-0.3) Baso # (Auto) 0.1 K/mm3 K/mm3 (0.0-0.1) Abs Immat Gran (auto) 0.07 K/mm3 H K/mm3 (0.00-0.031) Absolute Neuts (auto) 5.6 K/mm3 K/mm3 (1.3-6.7) Absolute Nucleated RBC 0.0 K/mm3 K/mm3 (0.0-0.012) Nucleated RBC % 0.3 % H % (0.0-0.2) Platelet Estimate Adequate (Adequate) Hypochromasia 1+ (NORMAL) Anisocytosis 1+ (NORMAL) PT 12.0 Seconds Seconds (11.1-14.7) INR 0.9 APTT 23.1 SECONDS SECONDS (22.3-36.8) Sodium Potassium Chloride Carbon Dioxide Anion Gap BUN Creatinine Estim Creat Clear Calc Estimated GFR Glucose Calcium Magnesium Ferritin Total Bi
[2021-08-04] MEDS: LACTATED RINGERS 1,000 ML 150 ML IV CONT (10:50)
--- NOTE | 2021-08-04 11:23 | SUR.OPER ---
EGD - [id number] [facility] -[phone]
--- NOTE | 2021-08-04 13:21 | PCOTNOTE ---
Attempted OT evaluation this afternoon. Patient not back yet from GI testing/procedures. Will continue to attempt.
--- NOTE | 2021-08-04 15:14 | PM.IMPN ---
Progress Note: A&P Assessment and Plan (1) GI bleed: Code(s): K92.2 - Gastrointestinal hemorrhage, unspecified Status: Acute Assessment and Plan: Patient is an 81-year-old woman with a history of MS, stroke, COPD, or chronic respiratory failure on 2 L of oxygen, who presented to the emergency room from the skilled rehab facility for generalized weakness and fatigue. The patient was recently hospitalized on 07/24/2021 after being found to have a stroke showing multiple infarct CVAs from the MCA distribution. Patient was discharged on statin, aspirin, and 5 more weeks of Plavix and aspirin therapy. Patient was [facility] to [facility] facility where she was doing well until she began feeling weak and fatigued and felt similar to her prior GI bleeds in the past. They checked labs and found her hemoglobin to be 6.4. She was sent to the emergency room for further evaluation and workup. Initial vitals showed blood pressure 152/60, heart rate 76, respiratory rate 23, oxygenation 98% on 2 L via nasal cannula which is her baseline. Repeat labs on arrival to ER showed macrocytic anemia with a hemoglobin is 7.5, normal coag panel, baseline creatinine 1.5, BUN 49, normal LFTs, normal urinalysis. Patient was admitted into the hospital with a consult to GI for further evaluation. Hemoglobin dropped to 6.9 last night and she received 2 units of PRBCs. Hemoglobin improved to 9.0 this morning. Will recheck hemoglobin this afternoon after scope and in the morning for further evaluation and make sure she is not dropping any further. Will check iron panel and vitamin B12, folic acid levels Dr. Darya NUNES evaluated the patient and is going to perform an EGD and colonoscopy today to assess for any sources of bleeding Will hold Plavix and Aspirin at this time until cleared to restart medication by the GI specialist. Patient does have a long history of anemia and follows up with a brick machine operator which she will need to follow-up after discharge for further evaluation and monitoring Continue monitoring. Transfuse if less than 7. (2) Multiple sclerosis: Code(s): G35 - Multiple sclerosis Status: Acute Assessment and Plan: Continue with home medications. (3) Hypertriglyceridemia: Code(s): E78.1 - Pure hyperglyceridemia Status: Acute Assessment and Plan: Continue with atorvastatin (4) Chronic depression: Code(s): F32.9 - Major depressive disorder, single episode, unspecified Status: Acute Assessment and Plan: Continue home medications (5) Hypertension: Qualifiers: Hypertension type: unspecified Qualified Code(s): I10 - Essential (primary) hypertension Code(s): I10 - Essential (primary) hypertension Status: Acute Assessment and Plan: Continue with hydralazine (6) Hypothyroidism: Qualifiers: Hypothyroidism type: acquired Qualified Code(s): E03.9 - Hypothyroidism, unspecified Code(s): E03.9 - Hypothyroidism, unspecified Status: Acute Assessment and Plan: Continue with levothyroxine.TSH slightly elevated at 5, but normal T4 and T3. Follow up with PCP. (7) COPD (chronic obstructive pulmonary disease): Qualifiers: COPD type: unspecified COPD Qualified Code(s): J44.9 - Chronic obstructive pulmonary disease, unspecified Code(s): J44.9 - Chronic obstructive pulmonary disease, unspecified Status: Acute Assessment and Plan: Continue with inhalers the patient is chronically on oxygen at 2 L per nasal cannula. (8) Acute CVA (cerebrovascular accident): Code(s): I63.9 - Cerebral infarction, unspecified Status: Acute Assessment and Plan: Had CVA 07/24/21. Hold aspirin and Plavix for now Time Spent With Patient Time with patient: 25 - 35 minutes Subjective Date/time seen: 08/04/21 15:14 Interval history: Date of Servi
--- NOTE | 2021-08-04 15:21 | PC.NURSE ---
Patient returned from GI lab/radiology. Settled in bed. No c/o pain. No distress noted.
[2021-08-04] MEDS: FUROSEMIDE 20 MG TABLET PO (15:22)
[2021-08-04] MEDS: CYANOCOBALAMIN 1,000 MCG TABLET 1000 MCG PO (15:22)
[2021-08-04] MEDS: ATORVASTATIN 20 MG TABLET PO (15:22)
[2021-08-04] MEDS: ALPRAZolam (*CRX) 0.5 MG TABLET PO (15:22)
[2021-08-04] MEDS: LOSARTAN POTASSIUM 25 MG TABLET PO (15:23)
[2021-08-04] MEDS: hydrALAZINE HCL 50 MG TABLET PO ×2 (15:29→23:44)
[2021-08-04 15:50] LABS: Hematocrit 27.2 % (37.0-47.0); Hemoglobin 8.4 g/dL (12.0-15.0)
[2021-08-04] MEDS: MECLIZINE HCL 12.5 MG TABLET PO (17:19)
[2021-08-04] MEDS: FERROUS SULFATE 324 MG TABLET PO (17:19)
[2021-08-04 22:43] LABS: Alveolar/Arterial O2 Gradient 69.2 mmHg; Base Excess ABG 6.6 mEq/l (+/-2.0); Device NASAL CANNULA; Fractional Inspired Oxygen 28 %; HCO3 ABG 31.5 mEq/l (22.0-26.0); Modified Allen's Test Pass; Oxygen Content ABG 11.7 %vol (16.0-22.0); Oxygen Saturation ABG 95.3 % (95.0-100.0); Oxyhemoglobin 92.7 % THb (90.0-100.0); PCO2 ABG 47.6 mmHg (35.0-45.0); PO2 ABG 74.3 mmHg (80.0-100.0); PO2 FiO2 Ratio Arterial Blood 2.65 %; Site Drawn LEFT RADIAL; Total Hemoglobin 8.9 g/dL (12.0-18.0); pH ABG 7.439 (7.350-7.450)
[2021-08-04] MEDS: rOPINIRole HCL 1 MG TABLET 5 MG PO (23:44)
[2021-08-04] MEDS: PANTOPRAZOLE SODIUM IV 40 MG VIAL IV PUSH (23:44)
[2021-08-05] VITALS (12 sets, daily range): BP systolic 144–160; BP diastolic 53–61; PULSE 66–88; RESP 14–18; TEMP 36.1–36.9; O2SAT 94–98
[2021-08-05 00:03] LABS: Glucose Point of Care 163 mg/dl (65-105)
--- NOTE | 2021-08-05 00:49 | PC.NURSE ---
Pt found very somnolent and unable to rouse more than brief open eyes and mumbling. Mae Allen was notified and ordered head CT and ABGs to be drawn. Pt became alert during CT scan with no memory of events leading to her requiring the scan. Pt states she has a chronic problem of blacking out for which she has been a patient at [facility] for several days. She says they were unable to determine what was happening to her and she continues to have these black outs randomly for periods of several minutes to several hours. Pt CT and ABG were both unremarkable, minor abnormalities with ABG and no acute changes on CT.
[2021-08-05 05:56] LABS: Hematocrit 27.6 % (37.0-47.0); Hemoglobin 8.6 g/dL (12.0-15.0); Mean Corpuscular HGB Conc 31.2 g/dl (32-36); Mean Corpuscular Hemoglobin 31.5 pg (26-34); Mean Corpuscular Volume 101.1 fl (80-100); Mean Platelet Volume 9.5 fl (7.4-10.4); Platelet Count Result 197 k/mm3 (150-375); Red Blood Count 2.73 M/mm3 (4.2-5.4); Red Cell Distribution Width 16.5 % (11.5-14.5)
[2021-08-05 06:05] LABS: Anion Gap 3 mmol/L (8-16); Blood Urea Nitrogen 30 mg/dL (7-17); Calcium 8.6 mg/dL (8.4-10.2); Carbon Dioxide 32 mmol/L (22-30); Chloride 103 mmol/L (98-107); Estimated CRCL calculation 44 ml/min; Estimated Glomerular Filt Rate 47; Glucose 133 mg/dL (65-110); Potassium 3.8 mmol/L (3.4-5.0); Sodium 138 mmol/L (137-145)
[2021-08-05 06:11] LABS: Transferrin 238 mg/dL (206-381)
[2021-08-05] MEDS: LEVOTHYROXINE SODIUM 100 MCG TABLET PO (06:30)
--- NOTE | 2021-08-05 07:10 | WPDGIPROGNO ---
Progress Note: A&P Assessment and Plan (1) Anemia: Code(s): D64.9 - Anemia, unspecified Status: Acute Assessment and Plan: Patient with anemia. Hemoglobin stable after transfusion. No obvious signs of GI blood loss. She has macrocytic indices with normal LFTs, normal folate and B12 levels. Suggest hematology follow-up at this point. Evaluation for GI blood loss reveals no specific findings. Small-bowel follow-through unremarkable. EGD reveals previous ulcer is now healed. Colonoscopy revealed normal mucosa with no evidence for active bleeding. Follow-up stool Hemoccult not yet on record. (2) Occult blood in stools: Code(s): R19.5 - Other fecal abnormalities Status: Acute Assessment and Plan: Occult blood noted in the stools on presentation. Follow-up stool guaiac to document this in the record not yet on chart. No evidence for active bleeding. (3) History of colon polyps: Code(s): Z86.010 - Personal history of colonic polyps Status: Acute Assessment and Plan: Distant history of colon polyps. Non evident by recent endoscopy. (4) History of gastric ulcer: Code(s): Z87.11 - Personal history of peptic ulcer disease Status: Acute Assessment and Plan: Previous gastric ulcer is now healed. 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 Suggest hematology follow-up. Subjective Date/time seen: 08/05/21 07:10 Patient alert and comfortable this morning. Somewhat anxious. She reports no abdominal pain. No evidence for bleeding. Review of Systems Review of Systems: All systems reviewed & are unremarkable except as noted in HPI and below Exam Narrative: Patient is alert. Vital signs are stable. HEENT exam reveals no icterus. Lungs are clear. Heart without murmur. Abdomen bowel sounds present soft nontender with no organomegaly. Objective Data Vital Signs Vital Signs: Vital Signs - 24 hr 08/04/21 08:00 08/04/21 08:53 08/04/21 08:56 Temperature Pulse Rate 77 75 75 Respiratory Rate 18 18 Blood Pressure Pulse Oximetry 99 93 08/04/21 09:00 08/04/21 09:11 08/04/21 09:45 Temperature 98.7 F Pulse Rate 78 76 82 Respiratory Rate 18 22 H Blood Pressure 160/47 H Pulse Oximetry 98 08/04/21 11:33 08/04/21 11:43 08/04/21 11:53 Temperature Pulse Rate 78 78 74 Respiratory Rate 27 H 26 H 23 H Blood Pressure 127/56 L 128/52 L 135/58 L Pulse Oximetry 99 98 99 08/04/21 15:20 08/04/21 15:30 08/04/21 16:00 Temperature 98.1 F Pulse Rate 75 76 76 Respiratory Rate 20 Blood Pressure 165/63 H Pulse Oximetry 98 08/04/21 21:31 08/04/21 22:13 08/04/21 23:30 Temperature 98.0 F Pulse Rate 75 70 72 Respiratory Rate 16 22 H Blood Pressure 156/52 H Pulse Oximetry 97 96 96 08/04/21 23:44 08/05/21 00:00 08/05/21 04:00 Temperature Pulse Rate 70 67 66 Respiratory Rate Blood Pressure Pulse Oximetry 08/05/21 05:37 Temperature 97.0 F L Pulse Rate 67 Respiratory Rate 16 Blood Pressure 144/53 H Pulse Oximetry 98 Intake/Output Intake/Output: Intake & Output 08/02/21 08/03/21 08/04/21 08/05/21 23:59 23:59 23:59 23:59 Intake Total 790 1470 200 Output Total 300 400 Balance 490 1470 -200 Meds/Results Medications: Active Medications Generic Name Dose Route Start Last Admin Trade Name Freq PRN Reason Stop Dose Admin Albuterol 2.5 mg 08/04/21 08:00 08/04/21 08:52 Albuterol Sulfate Neb 2.5 Mg/0.5 Ml Inh INHALATION 2.5 mg DAILYRT CIARA Administration Alprazolam 0.5 mg 08/03/21 22:17 08/04/21 15:22 Alprazolam (*Crx) 0.5 Mg Tablet PO 0.5 mg BID PRN Administration Anxiety Atorvastatin Calcium 20 mg 08/04/21 09:00 08/04/21 15:22 Atorvastatin 20 Mg Tablet PO 20 mg DAILY CIARA
[2021-08-05 07:35] LABS: Iron 30 ug/dL (37-170)
[2021-08-05 07:45] LABS: Percent Iron Saturation 9 % (20-50)
[2021-08-05] MEDS: ALBUTEROL SULFATE NEB 2.5 MG/0.5 ML INH INHALATION (08:48)
[2021-08-05] MEDS: FLUTICASONE/UMECLIDIN/VILANTER 100-62.5-25 MCG ELLIPTA 1 PUFF INHALATION (08:48)
[2021-08-05] MEDS: FERROUS SULFATE 324 MG TABLET PO ×3 (09:06→16:51)
[2021-08-05] MEDS: FUROSEMIDE 20 MG TABLET PO (09:06)
[2021-08-05] MEDS: ATORVASTATIN 20 MG TABLET PO (09:06)
[2021-08-05] MEDS: CYANOCOBALAMIN 1,000 MCG TABLET 1000 MCG PO (09:06)
[2021-08-05] MEDS: hydrALAZINE HCL 50 MG TABLET PO ×2 (09:07→16:51)
[2021-08-05] MEDS: LOSARTAN POTASSIUM 25 MG TABLET PO (09:07)
[2021-08-05] MEDS: MECLIZINE HCL 12.5 MG TABLET PO ×3 (09:08→16:51)
[2021-08-05] MEDS: METOPROLOL TARTRATE 12.5 MG TABLET PO ×2 (09:08→20:42)
[2021-08-05] MEDS: PANTOPRAZOLE SODIUM IV 40 MG VIAL IV PUSH (09:09)
[2021-08-05] MEDS: ALPRAZolam (*CRX) 0.5 MG TABLET PO ×2 (09:12→19:39)
[2021-08-05] MEDS: FUROSEMIDE INJ 40 MG/4 ML VIAL 20 MG IV PUSH (10:45)
--- NOTE | 2021-08-05 11:42 | PM.DS ---
DS: Admitting Diagnosis Discharge Date 08/05/21 Admitting Diagnosis Weakness DS: Discharge Diagnosis Discharge Diagnosis (1) GI bleed: Code(s): K92.2 - Gastrointestinal hemorrhage, unspecified Status: Acute Assessment and Plan: Patient is an 81-year-old woman with a history of MS, stroke, COPD, or chronic respiratory failure on 2 L of oxygen, who presented to the emergency room from the skilled rehab facility for generalized weakness and fatigue. The patient was recently hospitalized on 07/24/2021 after being found to have a stroke showing multiple infarct CVAs from the MCA distribution. Patient was discharged on statin, aspirin, and 5 more weeks of Plavix and aspirin therapy. Patient was discharged to longterm rehab facility where she was doing well until she began feeling weak and fatigued and felt similar to her prior GI bleeds in the past. They checked labs and found her hemoglobin to be 6.4. She was sent to the emergency room for further evaluation and workup. Initial vitals showed blood pressure 152/60, heart rate 76, respiratory rate 23, oxygenation 98% on 2 L via nasal cannula which is her baseline. Repeat labs on arrival to ER showed macrocytic anemia with a hemoglobin is 7.5, normal coag panel, baseline creatinine 1.5, BUN 49, normal LFTs, normal urinalysis. Patient was admitted into the hospital with a consult to GI for further evaluation. Hemoglobin dropped to 6.9 after arrival and she received 2 units of PRBCs. Hemoglobin improved to 9.0 and continued to remain stable at 8.6 today without anymore signs of bleeding. Patient showed iron deficiency anemia with %saturation of 9%. I gave IV Venofer 500 x1. and continued her home Iron TIDWM Dr. Darya NUNES evaluated the patient and performed an EGD and colonoscopy showing only internal hemorrhoids, no active bleeding and Schatzkis ring which was dilated. Talked with Hope ABREU with Dr. Ritch[facility] Hematology-patient has a history of multiple GI bleeds and has been taken off of her aspirin and Plavix by her milling machinist. She has been getting weekly CBC draws which has been monitored by her milling machinist. She last followed up in June 2021 and at that appointment her H&H is were stable (8-10 Hgb) and she continued to be off aspirin and Plavix. The milling machinist states that every time she is started on aspirin or Plavix she has another GI bleed and continues to have this vicious cycle. We will need to discuss the risks and benefits of anticoagulation versus stroke risks and decide which would be best. I discussed with the patient and her family about the risks of bleeding with a history of recurrent GI bleeding with being on aspirin or Plavix. I informed her that at this time I will not restart his medications. I recommend her following up with her milling machinist, further GI workup with her GI specialist for possible capsule endoscopy and to follow-up with her vascular surgeon Dr. Brown who performed her prior endarterectomy to see if there is something they can do with her carotid stenosis to prevent further strokes from occurring since she cannot be on anticoagulation. Until then we will keep her blood pressure well controlled less than 140/80. Have him check her blood pressure twice daily. Will check a CBC on Sunday08/08/2021 Have her follow-up with her specialist as an outpatient At this time she is stable for discharge back to her acute rehab facility for further evaluation and therapy We did have the patient on telemetry and she had a 10 beat run of nonsustained ventricular tachycardia. The patient was asymptomatic at this time, sitting up eating crackers in bed. Her electrolytes were stable magnesium 2.0, potassium 3.8. She did not show any other signs of an arrhythmia at this time. May need to consider a Holter monitor after discharge for further evaluation if she has any symptoms of palpitations. At this time she is stable for discharge back to acute reha
[2021-08-05] MEDS: IRON SUCROSE COMPLEX 500 MG in SODIUM CHLORIDE 0.9% IV 250 ML 78.57 MG IVPB (12:22)
[2021-08-05 14:32] LABS: EDCOVIDSCREEN Negative (Negative)
--- NOTE | 2021-08-05 15:10 | PC.NURSE ---
13 beat run of what appears to be Vtach noted on monitor. Patient sitting up in bed eating kayy crackers. Denies any symptoms. Notified Gretchen CANDELARIA and she states she will be down to look at the telemetry strips.
[2021-08-05] MEDS: traZODone HCL 50 MG TABLET 150 MG PO (20:42)
[2021-08-05] MEDS: rOPINIRole HCL 1 MG TABLET 5 MG PO (20:42)
== END 2021-08-05 22:45 ==
LOC: ANHED 13:41 → ANH3MEDSUR 16:00 → ANH2MED 16:31
PROVIDERS: Internal Medicine Gastroenterology; Nurse Practitioner; Physician Assistant; Admitting Provider Internal Medicine; Emergency Provider Emergency Medicine; PCP Family Medicine; Visit Provider Physician Assistant
PROC: 0DJ08ZZ Inspection of Upper Intestinal Tract, Via Natural or Artificial Opening Endoscopic (ICD-10-PCS; CPT 43235; principal; 2021-08-04 10:30)
DX: K92.2 Gastrointestinal hemorrhage, unspecified (principal); K22.2 Esophageal obstruction; K64.8 Other hemorrhoids; D50.9 Iron deficiency anemia, unspecified; R30.0 Dysuria; I69.351 Hemiplegia and hemiparesis following cerebral infarction affecting right dominant side; I10 Essential (primary) hypertension; E78.1 Pure hyperglyceridemia; E03.9 Hypothyroidism, unspecified; F32.9 Major depressive disorder, single episode, unspecified; G35 Multiple sclerosis; G25.81 Restless legs syndrome; J43.9 Emphysema, unspecified; R06.02 Shortness of breath; Z99.81 Dependence on supplemental oxygen; Z96.651 Presence of right artificial knee joint; Z87.891 Personal history of nicotine dependence; Z20.822 Contact with and (suspected) exposure to COVID-19
CPT/HCPCS: 45378; 43450; 36415; 36430; 36600; 70450; 71045; 74250; 80048; 80053; 81001; 82728; 82805; 82948; 83540; 83550; 83735; 84439; 84443; 84466; 84480; 85014; 85018; 85025; 85027; 85610; 85730; 86850; 86900; 86901; 86920; 87426; 94640; 96361; 96374; 97161; 97165; 99285; A9270; C9113; C9803; G0378; J1756; J1940; J2704; J7030; J7050; J7120; P9016